=== PATIENT | male | born 1980 | race Caucasian/White ===

== ENCOUNTER 2016-07-10 22:20 | Emergency (ER) | payer OTHER ==
[~2016-07-10] VITALS: Ht 185.4 cm; Wt 88.5 kg
[~2016-07-10 22:20] MED LIST: ALBU2TA INH; AUGM875T27 PO; AVEL1TAB PO; NICO21DI5 TD
[2016-07-10 22:29] VITALS: BP 136/68
[2016-07-10] MEDS ORDERED: inhaler PO (22:33)
[2016-07-10] MEDS ORDERED: ZITHTAB PO (23:27)
[2016-07-10] MEDS ORDERED: FLON1SPR (23:28)
[2016-07-10] MEDS ORDERED: AZITHROMYCIN 250 MG TAB PO ONE (23:30)
== END 2016-07-10 23:42 | disposition home or self-care (01) ==
LOC: M ED 22:30
DX: J01.90 Acute sinusitis, unspecified (principal); J20.9 Acute bronchitis, unspecified

== ENCOUNTER 2016-07-31 21:58 | Emergency (ER) | payer OTHER ==
[~2016-07-31] VITALS: Ht 182.9 cm; Wt 86.2 kg
[~2016-07-31 21:58] MED LIST changes: +FLON1SPR; +ZITHTAB PO; +inhaler PO
[2016-08-01] MEDS ORDERED: NAPROXEN 250 MG TAB PO ONE (00:15)
[2016-08-01] MEDS ORDERED: NAPR500T PO (00:18)
[2016-08-01 00:20] VITALS: BP 140/78
== END 2016-08-01 00:25 | disposition home or self-care (01) ==
LOC: M ED 22:41
DX: M77.9 Enthesopathy, unspecified (principal)

== ENCOUNTER 2016-10-12 21:30 | Emergency (ER) | payer OTHER ==
[~2016-10-12] VITALS: Ht 182.9 cm; Wt 86.4 kg
[~2016-10-12 21:30] MED LIST changes: +NAPR500T PO
[2016-10-12] MEDS ORDERED: ACETAMINOPHEN TAB 650MG DOSE (2X325MG) PO ONE (22:30)
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
[2016-10-13 00:33] VITALS: BP 119/69
== END 2016-10-13 00:35 | disposition home or self-care (01) ==
LOC: EDBD 21:30 → M ED 22:41
DX: S01.01XA Laceration without foreign body of scalp, initial encounter (principal); S60.511A Abrasion of right hand, initial encounter; S60.512A Abrasion of left hand, initial encounter; S80.211A Abrasion, right knee, initial encounter; S80.212A Abrasion, left knee, initial encounter; Y04.8XXA Assault by other bodily force, initial encounter; Y92.410 Unspecified street and highway as the place of occurrence of the external cause; Y93.89 Activity, other specified; Y99.8 Other external cause status; F17.210 Nicotine dependence, cigarettes, uncomplicated

== ENCOUNTER 2016-11-13 20:48 | Emergency (ER) | payer OTHER ==
[~2016-11-13] VITALS: Ht 182.9 cm; Wt 77.3 kg
[~2016-11-13 20:48] MED LIST changes: -AUGM875T27 PO; +AUGM875T28 PO; -AVEL1TAB PO; +AVEL1TAB3 PO
[2016-11-13 20:49] VITALS: BP 115/70
[2016-11-13] MEDS ORDERED: ALBU17IN (20:55)
[2016-11-13] MEDS ORDERED: ARNU1INH (20:55)
== END 2016-11-13 22:12 | disposition left against medical advice (07) ==
LOC: M ED 20:48
DX: M54.5 Low back pain (principal); Z53.21 Procedure and treatment not carried out due to patient leaving prior to being seen by health care provider

== ENCOUNTER → 2017-05-09 | Outpatient (CLI) | payer MEDICAID | LOC: M OUTALCOH 07:47 | DX: F10.20 Alcohol dependence, uncomplicated (principal) ==

== ENCOUNTER 2017-07-16 16:05 | Emergency (ER) | payer OTHER, MEDICAID ==
[2017-07-16] MEDS: FLUORESCEIN OPHTH 1 MG STRIP OS (17:15)
[2017-07-16] MEDS: TETRACAINE 0.5% OPHTH SOLN 4ML OS (17:15)
== END 2017-07-16 17:40 | disposition home or self-care (01) ==
LOC: M ED 16:05
DX: H10.32 Unspecified acute conjunctivitis, left eye (principal); H57.12 Ocular pain, left eye; J44.9 Chronic obstructive pulmonary disease, unspecified; F17.200 Nicotine dependence, unspecified, uncomplicated
CPT/HCPCS: 99283

== ENCOUNTER 2018-02-15 14:08 | Observation (INO) | payer OTHER ==
[2018-02-15 16:03] LABS: KETONE, URINE AUTO RFX TRACE mg/dL (NEGATIVE); LEUKOCYTE ESTERASE UR AUTO RFX NEGATIVE (NEGATIVE); MUCUS, URINE RFX LARGE (NEGATIVE); NITRITE, URINE AUTO RFX NEGATIVE (NEGATIVE); RBC, URINE AUTO RFX 4 /HPF (0-3); SPECIFIC GRAVITY UR AUTO RFX 1.033 (1.002-1.035); SQUAM EPITHELIAL CELL UR AURFX 0 /HPF (0-6); WBC, URINE AUTO RFX 3 /HPF (0-3)
[2018-02-15] MEDS: KETOROLAC 30 MG/ML VIAL (J1885) IV (16:10)
[2018-02-15] MEDS: NS 1,000 ML IV ×2 (16:10→19:11)
[2018-02-15 16:15] LABS: HEMATOCRIT 37.7 % (42.0-52.0); HEMOGLOBIN 13.3 g/dl (13.5-17.5); MEAN CORPUSCULAR HEMOGLOBIN 34.4 pg (27.0-33.0); MEAN CORPUSCULAR HGB CONC 35.3 g/dl (32.0-36.5); MEAN CORPUSCULAR VOLUME 97.4 fl (80.0-96.0); PLATELET COUNT, AUTOMATED 433 10^3/uL (150-450); RED BLOOD COUNT 3.87 10^6/uL (4.30-6.10); RED CELL DISTRIBUTION WIDTH 14.5 % (11.5-14.5); WHITE BLOOD COUNT 21.8 10^3/uL (4.0-10.0)
[2018-02-15 16:21] LABS: ANION GAP 10 MEQ/L (8-16); BLOOD UREA NITROGEN 13 MG/DL (7-18); CALCIUM LEVEL 8.8 MG/DL (8.5-10.1); CARBON DIOXIDE LEVEL 26 MEQ/L (21-32); CHLORIDE LEVEL 104 MEQ/L (98-107); CREATININE FOR GFR 1.12 MG/DL (0.70-1.30); GLOMERULAR FILTRATION RATE > 60.0 (>60); GLUCOSE, FASTING 81 MG/DL (70-100); POTASSIUM SERUM 3.9 MEQ/L (3.5-5.1); SODIUM LEVEL 140 MEQ/L (136-145)
[2018-02-15 16:22] LABS: LACTIC ACID SEPSIS PROTOCOL 1.3 MMOL/L (0.4-2.0)
[2018-02-15 16:30] LABS: ADD MANUAL DIFFER YES; DIFF SLIDE NUMBER 166; POSITIVE DIFF POS FLAG
[2018-02-15 16:31] LABS: INFLUENZA A AMPLIFICATION NEGATIVE (NEGATIVE); INFLUENZA B AMPLIFICATION NEGATIVE (NEGATIVE)
[2018-02-15 16:33] LABS: ATYPICAL LYMPH 3 % (0-5); BASOPHILS 2 % (0-4); LYMPHOCYTES 18 % (16-52); MONOCYTES 5 % (0-8); NEUTROPHILS 72 % (35-75); PLATELET ESTIMATE INCREASED (NORMAL)
[2018-02-15 17:55] LABS: AMPHETAMINES LEVEL URINE NEGATIVE (NEGATIVE); BARBITURATES URINE NEGATIVE (NEGATIVE); BENZODIAZEPINES URINE NEGATIVE (NEGATIVE); CANNABINOIDS URINE POSITIVE (NEGATIVE); COCAINE METABOLITE URINE NEGATIVE (NEGATIVE); METHADONE URINE NEGATIVE (NEGATIVE); OPIATES URINE POSITIVE (NEGATIVE); PHENCYCLIDINE URINE NEGATIVE (NEGATIVE)
[2018-02-15] MEDS ORDERED: ACETAMINOPHEN TAB 650MG DOSE (2X325MG) PO (18:30)
[2018-02-15] MEDS ORDERED: BISACODYL 10 MG SUPP PR (18:30)
[2018-02-15] MEDS ORDERED: ONDANSETRON 4MG/2ML VIAL (J2405) IV (18:30)
[2018-02-15] MEDS: HEPARIN SOD (PORCINE) 5000 UNITS/ML VIAL SC (22:00)
[2018-02-16] MEDS: NS 1,000 ML IV ×3 (01:59→18:35)
[2018-02-16] MEDS: HEPARIN SOD (PORCINE) 5000 UNITS/ML VIAL SC ×3 (06:17→21:16)
[2018-02-16 06:42] LABS: HEMATOCRIT 34.6 % (42.0-52.0); HEMOGLOBIN 12.3 g/dl (13.5-17.5); MEAN CORPUSCULAR HEMOGLOBIN 34.1 pg (27.0-33.0); MEAN CORPUSCULAR HGB CONC 35.5 g/dl (32.0-36.5); MEAN CORPUSCULAR VOLUME 95.8 fl (80.0-96.0); PLATELET COUNT, AUTOMATED 415 10^3/uL (150-450); RED BLOOD COUNT 3.61 10^6/uL (4.30-6.10); RED CELL DISTRIBUTION WIDTH 13.9 % (11.5-14.5); WHITE BLOOD COUNT 14.2 10^3/uL (4.0-10.0)
[2018-02-16 07:15] LABS: ANION GAP 7 MEQ/L (8-16); BLOOD UREA NITROGEN 16 MG/DL (7-18); CALCIUM LEVEL 8.1 MG/DL (8.5-10.1); CARBON DIOXIDE LEVEL 22 MEQ/L (21-32); CHLORIDE LEVEL 111 MEQ/L (98-107); CREATININE FOR GFR 0.97 MG/DL (0.70-1.30); GLOMERULAR FILTRATION RATE > 60.0 (>60); GLUCOSE, FASTING 110 MG/DL (70-100); POTASSIUM SERUM 3.7 MEQ/L (3.5-5.1); SODIUM LEVEL 140 MEQ/L (136-145)
[2018-02-16 08:22] LABS: ALBUMIN 2.9 GM/DL (3.2-5.2); ALBUMIN/GLOBULIN RATIO 0.81 (1.00-1.93); ALKALINE PHOSPHATASE 71 U/L (45-117); ALT/SGPT 12 U/L (12-78); AST/SGOT 16 U/L (7-37); BILIRUBIN,DIRECT 0.4 MG/DL (0.0-0.2); BILIRUBIN,TOTAL 1.4 MG/DL (0.2-1.0); C REACTIVE PROTEIN QUANTITATIV 6.64 MG/DL (0.00-0.30); CPK CREATINE PHOSPHOKINASE 49 U/L (39-308); THYROID STIMULATING HORMONE 0.578 uIU/ML (0.358-3.740); TOTAL PROTEIN 6.5 GM/DL (6.4-8.2)
[2018-02-16 08:33] LABS: ERYTHROCYTE SEDIMENTATION RATE 35 mm/hr (0-15)
[2018-02-16] MEDS: INFLUENZA QUADRIVALENT PF VACCINE 0.5ML SYRINGE (90686) IM (09:00)
[2018-02-16] MEDS: NICOTINE 21MG/24HR 1 EA TRANSDERMAL TD (09:00)
[2018-02-16 13:33] LABS: ESTIMATED AVERAGE GLUCOSE 97 MG/DL (60-110)
[2018-02-17] MEDS: NS 1,000 ML IV (01:42)
[2018-02-17] MEDS: HEPARIN SOD (PORCINE) 5000 UNITS/ML VIAL SC (05:04)
[2018-02-17 06:19] LABS: HEMATOCRIT 33.4 % (42.0-52.0); HEMOGLOBIN 11.9 g/dl (13.5-17.5); MEAN CORPUSCULAR HEMOGLOBIN 34.4 pg (27.0-33.0); MEAN CORPUSCULAR HGB CONC 35.6 g/dl (32.0-36.5); MEAN CORPUSCULAR VOLUME 96.5 fl (80.0-96.0); PLATELET COUNT, AUTOMATED 405 10^3/uL (150-450); RED BLOOD COUNT 3.46 10^6/uL (4.30-6.10); WHITE BLOOD COUNT 10.7 10^3/uL (4.0-10.0)
[2018-02-17 06:35] LABS: ANION GAP 5 MEQ/L (8-16); BLOOD UREA NITROGEN 12 MG/DL (7-18); CALCIUM LEVEL 8.2 MG/DL (8.5-10.1); CARBON DIOXIDE LEVEL 24 MEQ/L (21-32); CHLORIDE LEVEL 113 MEQ/L (98-107); CREATININE FOR GFR 0.92 MG/DL (0.70-1.30); GLOMERULAR FILTRATION RATE > 60.0 (>60); GLUCOSE, FASTING 94 MG/DL (70-100); POTASSIUM SERUM 4.2 MEQ/L (3.5-5.1); SODIUM LEVEL 142 MEQ/L (136-145)
== END 2018-02-17 10:25 | disposition home or self-care (01) ==
LOC: M ED 14:08 → M ED INP 18:16 → M MS5PR 20:25
DX: F11.10 Opioid abuse, uncomplicated (principal); F12.10 Cannabis abuse, uncomplicated; M79.18 Myalgia, other site; D72.829 Elevated white blood cell count, unspecified; F17.210 Nicotine dependence, cigarettes, uncomplicated
CPT/HCPCS: J1885

== ENCOUNTER 2018-03-29 19:36 | Emergency (ER) | payer OTHER ==
[2018-03-29 21:18] LABS: BASO # 0.1 10^3/uL (0.0-0.2); BASO % 0.6 % (0.0-1.0); EOS # 0.2 10^3/uL (0.0-0.50); EOS % 1.6 % (0.0-3.0); HEMATOCRIT 38.5 % (42.0-52.0); HEMOGLOBIN 13.7 g/dl (13.5-17.5); IMMATURE GRANULOCYTE % 0.2 % (0-3.0); LYMPH # 2.8 10^3/uL (1.5-4.5); LYMPH % 21.2 % (24.0-44.0); MEAN CORPUSCULAR HGB CONC 35.6 g/dl (32.0-36.5); MEAN CORPUSCULAR VOLUME 95.5 fl (80.0-96.0); MONO # 1.3 10^3/uL (0.0-0.8); MONO % 9.5 % (0.0-5.0); NEUTROPHILS # 8.8 10^3/uL (1.8-7.7); NEUTROPHILS % 66.9 % (36.0-66.0); PLATELET COUNT, AUTOMATED 499 10^3/uL (150-450); RED BLOOD COUNT 4.03 10^6/uL (4.30-6.10); RED CELL DISTRIBUTION WIDTH 13.4 % (11.5-14.5); WHITE BLOOD COUNT 13.1 10^3/uL (4.0-10.0)
[2018-03-29 21:36] LABS: ETHYL ALCOHOL (ETHANOL) < 0.003 % (0.000-0.010)
[2018-03-29 21:39] LABS: AMPHETAMINES LEVEL URINE POSITIVE (NEGATIVE); BARBITURATES URINE NEGATIVE (NEGATIVE); BENZODIAZEPINES URINE NEGATIVE (NEGATIVE); CANNABINOIDS URINE POSITIVE (NEGATIVE); COCAINE METABOLITE URINE POSITIVE (NEGATIVE); METHADONE URINE NEGATIVE (NEGATIVE); OPIATES URINE POSITIVE (NEGATIVE); PHENCYCLIDINE URINE NEGATIVE (NEGATIVE)
== END 2018-03-29 22:23 | disposition home or self-care (01) ==
LOC: M ED 19:36
DX: S06.0X0A Concussion without loss of consciousness, initial encounter (principal); S00.83XA Contusion of other part of head, initial encounter; S13.4XXA Sprain of ligaments of cervical spine, initial encounter; F19.10 Other psychoactive substance abuse, uncomplicated; Y04.8XXA Assault by other bodily force, initial encounter; Y92.098 Other place in other non-institutional residence as the place of occurrence of the external cause; J45.909 Unspecified asthma, uncomplicated; F43.20 Adjustment disorder, unspecified; F90.9 Attention-deficit hyperactivity disorder, unspecified type; F60.9 Personality disorder, unspecified; F17.200 Nicotine dependence, unspecified, uncomplicated
CPT/HCPCS: 70450

== ENCOUNTER 2018-04-27 22:24 | Emergency (ER) | payer OTHER ==
[~2018-04-27] VITALS: Ht 185.4 cm; Wt 79.5 kg
[~2018-04-27 22:24] MED LIST changes: +ACE65ERTAB PO; +ALBU17IN; +ARNU1INH; +GENT3OPD OS; +KETO5OPD OS; +NAPR-50 PO; -NAPR500T PO; -NICO21DI5 TD; +NICO21DI6 TD
[2018-04-27 23:11] LABS: HEMOGLOBIN 13.8 g/dl (13.5-17.5); MEAN CORPUSCULAR HEMOGLOBIN 32.9 pg (27.0-33.0); MEAN CORPUSCULAR HGB CONC 35.4 g/dl (32.0-36.5); MEAN CORPUSCULAR VOLUME 92.9 fl (80.0-96.0); PLATELET COUNT, AUTOMATED 496 10^3/uL (150-450); WHITE BLOOD COUNT 12.5 10^3/uL (4.0-10.0)
[2018-04-27 23:36] LABS: ACETAMINOPHEN LEVEL < 2.0 UG/ML (10.0-30.0); ALBUMIN 3.8 GM/DL (3.2-5.2); ALT/SGPT 459 U/L (12-78); BILIRUBIN,DIRECT 0.3 MG/DL (0.0-0.2); BILIRUBIN,TOTAL 0.8 MG/DL (0.2-1.0); BLOOD UREA NITROGEN 17 MG/DL (7-18); CALCIUM LEVEL 8.8 MG/DL (8.5-10.1); CARBON DIOXIDE LEVEL 22 MEQ/L (21-32); CHLORIDE LEVEL 105 MEQ/L (98-107); CREATININE FOR GFR 1.17 MG/DL (0.70-1.30); ETHYL ALCOHOL (ETHANOL) < 0.003 % (0.000-0.010); GLOMERULAR FILTRATION RATE > 60.0 (>60); GLUCOSE, FASTING 105 MG/DL (70-100); POTASSIUM SERUM 3.8 MEQ/L (3.5-5.1); SALICYLATE LEVEL 1.9 MG/DL (5.0-30.0); SODIUM LEVEL 138 MEQ/L (136-145); TOTAL PROTEIN 7.6 GM/DL (6.4-8.2)
[2018-04-27 23:37] LABS: AMPHETAMINES LEVEL URINE POSITIVE (NEGATIVE); BARBITURATES URINE NEGATIVE (NEGATIVE); BENZODIAZEPINES URINE NEGATIVE (NEGATIVE); CANNABINOIDS URINE POSITIVE (NEGATIVE); COCAINE METABOLITE URINE NEGATIVE (NEGATIVE); METHADONE URINE NEGATIVE (NEGATIVE); OPIATES URINE POSITIVE (NEGATIVE); PHENCYCLIDINE URINE NEGATIVE (NEGATIVE)
[2018-04-28 00:02] VITALS: BP 125/61
--- NOTE | 2018-04-28 06:56 | REP ---
Clinical: Pain. Technique: AP, lateral, bilateral oblique views of the left hand. Comparison: 05/27/2012. Findings: Old healed fracture of the fifth proximal phalanx identified. No obvious acute fracture dislocation. No subcutaneous emphysema. No foreign body. Impression: Old right fifth proximal phalanx fracture. No acute fracture or dislocation appreciated. The Electronically Signed by Cornell Porter MD 04/28/2018 06:48 A
--- NOTE | 2018-04-28 06:58 | REP ---
Clinical: Pain. Technique: AP, lateral, bilateral oblique views of the left wrist. Comparison: 05/27/2012. Findings: No obvious acute fracture appreciated. The carpal bones appear intact. Surrounding soft tissues are grossly unremarkable. No subcutaneous emphysema or radiodense foreign body. Impression: No acute fracture or dislocation appreciated. Electronically Signed by Cornell Porter MD 04/28/2018 06:50 A
[2018-04-28 11:52] LABS: HEPATITIS B SURFACE ANTIGEN NEGATIVE (NEGATIVE)
[2018-04-28 12:19] LABS: HEPATITIS B CORE ANTIBODY IGM NEGATIVE (NEGATIVE)
[2018-04-28 12:21] LABS: HEPATITIS A ANTIBODY IGM NEGATIVE (NEGATIVE)
[2018-04-28 12:30] LABS: HEPATITIS C VIRUS ABY INDEX 3.5 INDEX (<0.8)
== END 2018-04-27 23:59 | disposition home or self-care (01) ==
LOC: M ED 22:24
DX: F43.0 Acute stress reaction (principal); S63.502A Unspecified sprain of left wrist, initial encounter; W22.09XA Striking against other stationary object, initial encounter; Y92.89 Other specified places as the place of occurrence of the external cause; R94.5 Abnormal results of liver function studies; F63.81 Intermittent explosive disorder; F32.9 Major depressive disorder, single episode, unspecified; F19.10 Other psychoactive substance abuse, uncomplicated; G89.29 Other chronic pain; M51.9 Unspecified thoracic, thoracolumbar and lumbosacral intervertebral disc disorder; F17.200 Nicotine dependence, unspecified, uncomplicated
CPT/HCPCS: 36415; 73110; 73130; 80048; 80076; 80307; 84443; 85027; 86705; 86709; 86803; 87340; 87521; 99284; G0480

== ENCOUNTER 2018-05-09 12:46 | Inpatient (IN) | payer OTHER ==
[~2018-05-09] VITALS: Ht 185.4 cm; Wt 83.5 kg
[2018-05-09] MEDS ORDERED: ACETAMINOPHEN 325 MG TAB PO ONE (13:00)
[2018-05-09] MEDS ORDERED: IBUPROFEN 800 MG TAB PO ONE (13:00)
[2018-05-09] MEDS ORDERED: NS 1,000 ML IV ONE ×2 (13:00→14:15)
[2018-05-09] MEDS ORDERED: ONDANSETRON 4MG/2ML VIAL (J2405) IV ONE (13:00)
[2018-05-09 13:41] LABS: HEMATOCRIT 38.1 % (42.0-52.0); HEMOGLOBIN 13.9 g/dl (13.5-17.5); MEAN CORPUSCULAR HEMOGLOBIN 33.3 pg (27.0-33.0); MEAN CORPUSCULAR HGB CONC 36.5 g/dl (32.0-36.5); MEAN CORPUSCULAR VOLUME 91.1 fl (80.0-96.0); PLATELET COUNT, AUTOMATED 343 10^3/uL (150-450); RED BLOOD COUNT 4.18 10^6/uL (4.30-6.10)
[2018-05-09 14:00] LABS: ALBUMIN 3.1 GM/DL (3.2-5.2); ALT/SGPT 851 U/L (12-78); AMYLASE 30 U/L (25-115); BILIRUBIN,DIRECT 1.7 MG/DL (0.0-0.2); BILIRUBIN,TOTAL 2.4 MG/DL (0.2-1.0); BLOOD UREA NITROGEN 19 MG/DL (7-18); CALCIUM LEVEL 8.5 MG/DL (8.5-10.1); CARBON DIOXIDE LEVEL 22 MEQ/L (21-32); CHLORIDE LEVEL 103 MEQ/L (98-107); CREATININE FOR GFR 1.26 MG/DL (0.70-1.30); GLOMERULAR FILTRATION RATE > 60.0 (>60); GLUCOSE, FASTING 90 MG/DL (70-100); LIPASE 72 U/L (73-393); SODIUM LEVEL 137 MEQ/L (136-145); TOTAL PROTEIN 6.6 GM/DL (6.4-8.2)
[2018-05-09 14:12] LABS: INFLUENZA A AMPLIFICATION NEGATIVE (NEGATIVE); INFLUENZA B AMPLIFICATION NEGATIVE (NEGATIVE)
[2018-05-09 14:26] LABS: AMPHETAMINES LEVEL URINE POSITIVE (NEGATIVE); BARBITURATES URINE NEGATIVE (NEGATIVE); BENZODIAZEPINES URINE NEGATIVE (NEGATIVE); CANNABINOIDS URINE POSITIVE (NEGATIVE); COCAINE METABOLITE URINE NEGATIVE (NEGATIVE); METHADONE URINE NEGATIVE (NEGATIVE); OPIATES URINE POSITIVE (NEGATIVE); PHENCYCLIDINE URINE NEGATIVE (NEGATIVE)
[2018-05-09 14:28] LABS: ATYPICAL LYMPH 2 % (0-5); LYMPHOCYTES 2 % (16-52); MONOCYTES 2 % (0-8); NEUTROPHILS 74 % (35-75)
[2018-05-09 14:29] LABS: PLATELET ESTIMATE NORMAL (NORMAL); TOXIC VACUOLATION 2+
[2018-05-09] MEDS ORDERED: PIPERACILLIN/TAZOBACTAM SOD 3.375 GM in D5W MINI-BAG PLUS 50 ML IV ONE (15:00)
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
[2018-05-09] MEDS ORDERED: NS 2,400 ML in APPROPRIATE DILUENT 1 EA IV ONE (16:00)
--- NOTE | 2018-05-09 16:58 | REP ---
AP PORTABLE CHEST: 05/09/2018. Clinical history: Fever and back pain. Comparison: 02/15/2018, 02/24/2015 chest x-ray. Findings: Lungs are well inflated. There is diffuse coarsening of interstitial markings similar to the previous study. I do not see blunting of CP angles to suggest definite effusion. There is no lateral pleural thickening, apical scarring or pneumothorax. Pulmonary arteries are mildly prominent centrally. Some very mild pulmonary venous hypertension. No ni edema or dense consolidation. The aorta is minimally tortuous in its arch but unchanged. Airway intact. Bones without acute finding. No free air under the diaphragm. Impression: 1. Some chronic interstitial changes, stable with some pulmonary artery hypertension and superimposed new pulmonary venous hypertension. No gross effusion or dense consolidation. 2. Aorta normal for age. No gross cardiomegaly or ni edema. Electronically Signed by Jefe Rodgers MD 05/09/2018 05:07 P
[2018-05-09] MEDS ORDERED: MORPHINE 4 MG/ML 1ML VIAL/SYRINGE (J2270) IV PRN (17:15)
[2018-05-09] MEDS ORDERED: BISACODYL 5 MG TAB PO PRN (17:15)
[2018-05-09] MEDS ORDERED: ONDANSETRON 4MG/2ML VIAL (J2405) IV PRN (17:15)
[2018-05-09 18:31] LABS: INR 1.81; PROTHROMBIN TIME 21.3 SECONDS (12.1-14.4)
[2018-05-09 18:54] LABS: ACETAMINOPHEN LEVEL 18.5 UG/ML (10.0-30.0); C REACTIVE PROTEIN QUANTITATIV 2.16 MG/DL (0.00-0.30); ETHYL ALCOHOL (ETHANOL) < 0.003 % (0.000-0.010)
[2018-05-09 19:41] VITALS: BP 106/58
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
[2018-05-09] MEDS: NS 1,000 ML IV SCH (20:26)
[2018-05-09] MEDS: PIPERACILLIN/TAZOBACTAM SOD 3.375 GM in D5W MINI-BAG PLUS 50 ML IV SCH (20:26)
[2018-05-09] MEDS: oxyCODONE 5MG TAB PO PRN (21:16)
[2018-05-09 22:00] VITALS: BP 88/51
[2018-05-09] MEDS ORDERED: NS 500 ML IV ONE (22:15)
[2018-05-09 22:27] LABS: HEMATOCRIT 32.7 % (42.0-52.0); MEAN CORPUSCULAR HEMOGLOBIN 33.8 pg (27.0-33.0); MEAN CORPUSCULAR HGB CONC 36.1 g/dl (32.0-36.5); MEAN CORPUSCULAR VOLUME 93.7 fl (80.0-96.0); PLATELET COUNT, AUTOMATED 271 10^3/uL (150-450); RED BLOOD COUNT 3.49 10^6/uL (4.30-6.10)
[2018-05-09 22:41] VITALS: BP 97/56
[2018-05-09 22:44] LABS: HEMOGLOBIN 11.8 g/dl (13.5-17.5)
[2018-05-09 22:45] LABS: WHITE BLOOD COUNT 31.6 10^3/uL (4.0-10.0)
[2018-05-09 22:51] LABS: ABG BASE EXCESS -6.5 (-2.0-2.0); ABG HCO3 16.5 MEQ/L (22.0-26.0); ABG O2 SATURATION 96.1 % (95.0-99.0); ABG PARTIAL PRESSURE CO2 26.1 mmHg (35.0-45.0); ABG PARTIAL PRESSURE O2 82.7 mmHg (75.0-100.0); ABG STANDARD HCO3 19.2 MEQ/L (22.0-26.0); ABG TOTAL CO2 17.3 MEQ/L (22.0-29.0); ABG pH (ARTERIAL) 7.419 UNITS (7.350-7.450)
[2018-05-09 22:56] LABS: ALBUMIN 2.3 GM/DL (3.2-5.2); ALT/SGPT 605 U/L (12-78); BILIRUBIN,TOTAL 2.5 MG/DL (0.2-1.0); BLOOD UREA NITROGEN 16 MG/DL (7-18); CALCIUM LEVEL 7.1 MG/DL (8.5-10.1); CARBON DIOXIDE LEVEL 20 MEQ/L (21-32); CHLORIDE LEVEL 110 MEQ/L (98-107); CREATININE FOR GFR 1.27 MG/DL (0.70-1.30); GLOMERULAR FILTRATION RATE > 60.0 (>60); GLUCOSE, FASTING 110 MG/DL (70-100); SODIUM LEVEL 142 MEQ/L (136-145)
--- NOTE | 2018-05-09 23:23 | PHACANCOPD ---
PHARMACY VANCOMYCIN DOSING Pt Demographics Demographics Patient Age:37 , Weight:83.500 , Gender: male Adjusted Body Weight Events Past 24 Hours Events Past 24 Hours: NO: Dialysis, Diuretic Therapy, Change in CrCl, Fever, Elevation in WBC Vancomycin Vancomycin indication: INTRAABDOMINAL CAUSE Vancomycin Target Ranges: 15-20 mcg/ml Vancomycin Load Y/N: Yes Load Dose Date Time Vancomycin Load Dose: 2GM Date: 05/10/18 Time: MIDNIGHT Vancomycin Dose Date: 05/10/18. Current Vancomycin Dose: [1GM IV Q8H start @08:00] Intermittent Dosing?: No Labs Labs Laboratory Tests 05/09/18 13:14 Red Blood Count 4.18 L, Mean Corpuscular Volume 91.1, Mean Corpuscular Hemoglobin 33.3 H, Mean Corpuscular Hemoglobin Concent 36.5, Red Cell Distribution Width 14.3 05/09/18 22:21 Red Blood Count 3.49 L, Mean Corpuscular Volume 93.7, Mean Corpuscular Hemoglobin 33.8 H, Mean Corpuscular Hemoglobin Concent 36.1, Red Cell Distribution Width 14.6 H, Calcium Level 7.1 #L, Aspartate Amino Transf (AST/ SGOT) 475 H, Alanine Aminotransferase (ALT/SGPT) 605 H, Alkaline Phosphatase 142 H, Total Bilirubin 2.5 H, Total Protein 5.0 #L, Albumin 2.3 #L Micro Microbiology 05/09/18 Blood Culture, Received Pending 05/09/18 Blood Culture, Received Pending 05/09/18 Urine Culture, Received Pending Creatinine Clearance Date:05/09/18. Creatinine Clearance: >80ml/min]. Assessment and Plan Maintaining Current Dose?: Yes Reason for dose change: No Dose Change Pharmacist Note Pharmacist Note Date: 05/10/18. PharmD note: VANCO 2GM IV x1 DOSE @ MIDNIGHT FOLLOWED BY 1GM IV Q8H STARTING AT 08:00 GOAL 15-20 mcg/ml VANCO TROUGH WILL BE ORDERED WHEN AT [facility] May 09, 2018 23:23
[2018-05-10 01:00] VITALS: BP 95/54
[2018-05-10] MEDS ORDERED: VANCOMYCIN HCL 1,000 MG, VIAL MATE ADAPTER 1 EACH in D5W 250 ML IV ONE ×4 (01:00)
[2018-05-10] MEDS: PIPERACILLIN/TAZOBACTAM SOD 3.375 GM in D5W MINI-BAG PLUS 50 ML IV SCH ×4 (02:51→20:20)
[2018-05-10] MEDS: NS 1,000 ML IV SCH ×3 (05:29→20:21)
[2018-05-10 05:52] VITALS: BP 90/53
[2018-05-10 06:45] LABS: HEMATOCRIT 34.1 % (42.0-52.0); HEMOGLOBIN 12.1 g/dl (13.5-17.5); MEAN CORPUSCULAR HEMOGLOBIN 33.3 pg (27.0-33.0); MEAN CORPUSCULAR HGB CONC 35.5 g/dl (32.0-36.5); MEAN CORPUSCULAR VOLUME 93.9 fl (80.0-96.0); PLATELET COUNT, AUTOMATED 292 10^3/uL (150-450); RED BLOOD COUNT 3.63 10^6/uL (4.30-6.10)
[2018-05-10 06:58] LABS: WHITE BLOOD COUNT 42.6 10^3/uL (4.0-10.0)
[2018-05-10 07:07] LABS: ALBUMIN 2.5 GM/DL (3.2-5.2); ALT/SGPT 625 U/L (12-78); BILIRUBIN,TOTAL 2.5 MG/DL (0.2-1.0); BLOOD UREA NITROGEN 16 MG/DL (7-18); CALCIUM LEVEL 7.8 MG/DL (8.5-10.1); CARBON DIOXIDE LEVEL 23 MEQ/L (21-32); CHLORIDE LEVEL 107 MEQ/L (98-107); CREATININE FOR GFR 1.06 MG/DL (0.70-1.30); GLOMERULAR FILTRATION RATE > 60.0 (>60); GLUCOSE, FASTING 80 MG/DL (70-100); POTASSIUM SERUM 4.7 MEQ/L (3.5-5.1); SODIUM LEVEL 139 MEQ/L (136-145); TOTAL PROTEIN 5.3 GM/DL (6.4-8.2)
[2018-05-10] MEDS: VANCOMYCIN HCL 1,000 MG, VIAL MATE ADAPTER 1 EACH in D5W 250 ML IV SCH ×3 (07:26→23:05)
[2018-05-10] MEDS ORDERED: INFLUENZA QUADRIVALENT PF VACCINE 0.5ML SYRINGE (90686) IM ONE (09:00)
--- NOTE | 2018-05-10 09:08 | PHACANCOPD ---
PHARMACY VANCOMYCIN DOSING Pt Demographics Demographics Patient Age:37 , Weight:83.500 , Gender: male Adjusted Body Weight Vancomycin Vancomycin indication: INTRAABDOMINAL CAUSE Vancomycin Target Ranges: 15-20 mcg/ml Vancomycin Load Y/N: Yes Load Dose Date Time Vancomycin Load Dose: 2GM Date: 05/10/18 Time: MIDNIGHT Vancomycin Dose Date: 05/10/18. Current Vancomycin Dose: [1GM IV Q8H start @08:00] Intermittent Dosing?: No Labs Micro Microbiology 05/09/18 Blood Culture, Received Pending 05/09/18 Blood Culture, Received Pending 05/09/18 Urine Culture - Final, Complete Creatinine Clearance Date:05/09/18. Creatinine Clearance: >80ml/min]. Assessment and Plan Maintaining Current Dose?: Yes Reason for dose change: No Dose Change Pharmacist Note Pharmacist Note 05/10/18: Day #1 vancomycin therapy for the treatment of potential cholangitis. Scr has improved from 1.27 yesterday to 1.06 today. A vancomycin trough has been scheduled to be drawn tomorrow, 05/11/18, prior to the 5th dose at 0700. We will continue to monitor and make dose adjustments if needed. Date: 05/10/18. PharmD note: VANCO 2GM IV x1 DOSE @ MIDNIGHT FOLLOWED BY 1GM IV Q8H STARTING AT 08:00 GOAL 15-20 mcg/ml VANCO TROUGH WILL BE ORDERED WHEN AT [facility] May 10, 2018 09:08
[2018-05-10 14:00] VITALS: BP 106/58
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
[2018-05-10 20:00] VITALS: BP 113/58
[2018-05-10] MEDS: oxyCODONE 5MG TAB PO PRN (20:21)
[2018-05-11] MEDS: PIPERACILLIN/TAZOBACTAM SOD 3.375 GM in D5W MINI-BAG PLUS 50 ML IV SCH ×4 (02:38→20:33)
[2018-05-11] MEDS: oxyCODONE 5MG TAB PO PRN ×2 (02:47→20:33)
[2018-05-11 06:00] VITALS: BP 100/51
[2018-05-11 06:24] LABS: HEMATOCRIT 33.3 % (42.0-52.0); HEMOGLOBIN 12.1 g/dl (13.5-17.5); MEAN CORPUSCULAR HGB CONC 36.3 g/dl (32.0-36.5); MEAN CORPUSCULAR VOLUME 90.7 fl (80.0-96.0); PLATELET COUNT, AUTOMATED 261 10^3/uL (150-450); RED BLOOD COUNT 3.67 10^6/uL (4.30-6.10)
[2018-05-11 06:42] LABS: WHITE BLOOD COUNT 30.1 10^3/uL (4.0-10.0)
[2018-05-11 06:47] LABS: ALBUMIN 2.1 GM/DL (3.2-5.2); ALT/SGPT 451 U/L (12-78); BILIRUBIN,TOTAL 1.3 MG/DL (0.2-1.0); BLOOD UREA NITROGEN 16 MG/DL (7-18); CALCIUM LEVEL 7.8 MG/DL (8.5-10.1); CARBON DIOXIDE LEVEL 26 MEQ/L (21-32); CHLORIDE LEVEL 108 MEQ/L (98-107); CREATININE FOR GFR 0.96 MG/DL (0.70-1.30); GLOMERULAR FILTRATION RATE > 60.0 (>60); GLUCOSE, FASTING 86 MG/DL (70-100); POTASSIUM SERUM 4.4 MEQ/L (3.5-5.1); SODIUM LEVEL 138 MEQ/L (136-145); TOTAL PROTEIN 5.2 GM/DL (6.4-8.2)
[2018-05-11] MEDS: VANCOMYCIN HCL 1,000 MG, VIAL MATE ADAPTER 1 EACH in D5W 250 ML IV SCH ×3 (07:56→23:30)
--- NOTE | 2018-05-11 08:23 | REP ---
Right upper quadrant sonography: History: Elevated liver function studies. Hepatitis C virus. Right upper quadrant pain. Findings: Scanning through the right upper quadrant of the abdomen demonstrates a thickened gallbladder wall. No calculus is seen. No tenderness to scanning is observed. No pericholecystic fluid is seen. Common bile duct is normal measuring 0.5 cm in greatest diameter. Limited views of the pancreas show no abnormality. No focal liver lesion is seen. No biliary ductal dilation is observed. There is a trace of right upper quadrant ascites. A small right pleural effusion is noted. Impression: Diffusely thickened gallbladder wall without evidence of stone, tenderness or pericholecystic fluid. Trace of ascites and small right pleural effusion. Otherwise negative. Electronically Signed by Patrick Breaux MD 05/11/2018 09:08 A
[2018-05-11] MEDS: NS 1,000 ML IV SCH (09:03)
[2018-05-11 13:52] VITALS: BP 120/71
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
[2018-05-11 22:00] VITALS: BP 114/56
[2018-05-12] MEDS: PIPERACILLIN/TAZOBACTAM SOD 3.375 GM in D5W MINI-BAG PLUS 50 ML IV SCH ×2 (02:30→09:34)
[2018-05-12 05:37] VITALS: BP 111/58
[2018-05-12 06:25] LABS: HEMATOCRIT 34.8 % (42.0-52.0); HEMOGLOBIN 12.7 g/dl (13.5-17.5); MEAN CORPUSCULAR HGB CONC 36.5 g/dl (32.0-36.5); MEAN CORPUSCULAR VOLUME 90.4 fl (80.0-96.0); PLATELET COUNT, AUTOMATED 301 10^3/uL (150-450); RED BLOOD COUNT 3.85 10^6/uL (4.30-6.10); WHITE BLOOD COUNT 13.6 10^3/uL (4.0-10.0)
[2018-05-12 06:46] LABS: ALBUMIN 2.4 GM/DL (3.2-5.2); ALT/SGPT 568 U/L (12-78); BILIRUBIN,TOTAL 1.2 MG/DL (0.2-1.0); BLOOD UREA NITROGEN 13 MG/DL (7-18); CALCIUM LEVEL 8.4 MG/DL (8.5-10.1); CARBON DIOXIDE LEVEL 27 MEQ/L (21-32); CHLORIDE LEVEL 106 MEQ/L (98-107); CREATININE FOR GFR 0.94 MG/DL (0.70-1.30); GLOMERULAR FILTRATION RATE > 60.0 (>60); GLUCOSE, FASTING 84 MG/DL (70-100); POTASSIUM SERUM 4.2 MEQ/L (3.5-5.1); SODIUM LEVEL 138 MEQ/L (136-145); TOTAL PROTEIN 5.8 GM/DL (6.4-8.2)
[2018-05-12] MEDS: VANCOMYCIN HCL 1,000 MG, VIAL MATE ADAPTER 1 EACH in D5W 250 ML IV SCH (08:12)
[2018-05-12] MEDS ORDERED: LEVA1TAB2 PO (10:34)
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
== END 2018-05-12 12:40 | disposition home or self-care (01) ==
LOC: M ED 12:46 → M ED INP 17:03 → M MS4PR 20:13
PROVIDERS: ADMIT Internal Medicine; ATTEND Internal Medicine
DX: K83.09 Other cholangitis (principal); R45.851 Suicidal ideations; B17.10 Acute hepatitis C without hepatic coma; F11.10 Opioid abuse, uncomplicated; F07.9 Unspecified personality and behavioral disorder due to known physiological condition; F12.10 Cannabis abuse, uncomplicated; F15.10 Other stimulant abuse, uncomplicated; Z90.81 Acquired absence of spleen; Z87.820 Personal history of traumatic brain injury

== ENCOUNTER → 2018-05-21 | Outpatient (REF) | payer OTHER ==
[~2018-05-21] MED LIST changes: +LEVA1TAB2 PO
[2018-05-21 20:16] LABS: BASO # 0.1 10^3/uL (0.0-0.2); BASO % 0.9 % (0.0-1.0); EOS # 0.2 10^3/uL (0.0-0.50); EOS % 1.5 % (0.0-3.0); HEMOGLOBIN 14.1 g/dl (13.5-17.5); LYMPH # 3.6 10^3/uL (1.5-4.5); LYMPH % 29.1 % (24.0-44.0); MEAN CORPUSCULAR HEMOGLOBIN 33.3 pg (27.0-33.0); MEAN CORPUSCULAR HGB CONC 35.3 g/dl (32.0-36.5); MEAN CORPUSCULAR VOLUME 94.6 fl (80.0-96.0); MONO # 1.1 10^3/uL (0.0-0.8); NEUTROPHILS # 7.3 10^3/uL (1.8-7.7); NEUTROPHILS % 59.1 % (36.0-66.0); PLATELET COUNT, AUTOMATED 700 10^3/uL (150-450); RED BLOOD COUNT 4.23 10^6/uL (4.30-6.10); WHITE BLOOD COUNT 12.4 10^3/uL (4.0-10.0)
[2018-05-21 20:22] LABS: ALBUMIN 3.6 GM/DL (3.2-5.2); ALT/SGPT 284 U/L (12-78); BLOOD UREA NITROGEN 9 MG/DL (7-18); CARBON DIOXIDE LEVEL 26 MEQ/L (21-32); CHLORIDE LEVEL 104 MEQ/L (98-107); CREATININE FOR GFR 0.83 MG/DL (0.70-1.30); GLOMERULAR FILTRATION RATE > 60.0 (>60); GLUCOSE, FASTING 80 MG/DL (70-100); POTASSIUM SERUM 4.3 MEQ/L (3.5-5.1); SODIUM LEVEL 137 MEQ/L (136-145); TOTAL PROTEIN 7.6 GM/DL (6.4-8.2)
[2018-05-28 00:11] LABS: HEPATITIS C QUANTITATION 4676510 IU/mL (.); HEPATITIS C VIRUS GENOTYPE 1b (.)
== END ==
LOC: M LAB REF 18:53
PROVIDERS: ATTEND Family Medicine Addiction Medicine
DX: B17.10 Acute hepatitis C without hepatic coma (principal)

== ENCOUNTER 2018-06-08 13:48 | Emergency (ER) | payer OTHER ==
[~2018-06-08] VITALS: Ht 185.4 cm; Wt 86.4 kg
[2018-06-08 14:37] LABS: HEMATOCRIT 42.4 % (42.0-52.0); HEMOGLOBIN 14.6 g/dl (13.5-17.5); MEAN CORPUSCULAR HEMOGLOBIN 32.2 pg (27.0-33.0); MEAN CORPUSCULAR HGB CONC 34.4 g/dl (32.0-36.5); MEAN CORPUSCULAR VOLUME 93.6 fl (80.0-96.0); PLATELET COUNT, AUTOMATED 469 10^3/uL (150-450); RED BLOOD COUNT 4.53 10^6/uL (4.30-6.10); WHITE BLOOD COUNT 15.2 10^3/uL (4.0-10.0)
[2018-06-08 15:25] LABS: ACETAMINOPHEN LEVEL < 2.0 UG/ML (10.0-30.0); ALBUMIN 3.4 GM/DL (3.2-5.2); ALT/SGPT 198 U/L (12-78); BILIRUBIN,DIRECT 0.3 MG/DL (0.0-0.2); BILIRUBIN,TOTAL 0.8 MG/DL (0.2-1.0); BLOOD UREA NITROGEN 14 MG/DL (7-18); CALCIUM LEVEL 8.6 MG/DL (8.5-10.1); CARBON DIOXIDE LEVEL 23 MEQ/L (21-32); CHLORIDE LEVEL 106 MEQ/L (98-107); CREATININE FOR GFR 1.01 MG/DL (0.70-1.30); ETHYL ALCOHOL (ETHANOL) < 0.003 % (0.000-0.010); GLOMERULAR FILTRATION RATE > 60.0 (>60); GLUCOSE, FASTING 87 MG/DL (70-100); POTASSIUM SERUM 4.2 MEQ/L (3.5-5.1); SALICYLATE LEVEL < 1.7 MG/DL (5.0-30.0); SODIUM LEVEL 136 MEQ/L (136-145)
[2018-06-08 16:19] LABS: AMPHETAMINES LEVEL URINE NEGATIVE (NEGATIVE); BARBITURATES URINE NEGATIVE (NEGATIVE); BENZODIAZEPINES URINE NEGATIVE (NEGATIVE); CANNABINOIDS URINE POSITIVE (NEGATIVE); COCAINE METABOLITE URINE NEGATIVE (NEGATIVE); METHADONE URINE NEGATIVE (NEGATIVE); OPIATES URINE NEGATIVE (NEGATIVE); PHENCYCLIDINE URINE NEGATIVE (NEGATIVE)
[2018-06-08 16:24] LABS: BASO # 0.1 10^3/uL (0.0-0.2); BASO % 0.8 % (0.0-1.0); EOS # 0.4 10^3/uL (0.0-0.50); EOS % 2.6 % (0.0-3.0); LYMPH % 19.9 % (24.0-44.0); MONO # 1.8 10^3/uL (0.0-0.8); MONO % 11.9 % (0.0-5.0); NEUTROPHILS # 9.6 10^3/uL (1.8-7.7); NEUTROPHILS % 64.5 % (36.0-66.0)
[2018-06-08] MEDS ORDERED: NS 1,000 ML IV ONE (16:30)
[2018-06-08 16:50] LABS: INR 1.05; PROTHROMBIN TIME 13.8 SECONDS (12.1-14.4)
[2018-06-08 16:51] LABS: PARTIAL THROMBOPLASTIN TIME 31.7 SECONDS (25.4-37.6)
[2018-06-08 17:34] LABS: LIPASE 115 U/L (73-393)
--- NOTE | 2018-06-08 18:22 | REPVR ---
EXAM: US Abdomen Limited, Right Upper Quadrant EXAM DATE/TIME: 06/08/2018 6:09 PM CLINICAL HISTORY: 37 years old, male; Abnormal findings; Abnormal lab test; Elevated liver enzymes; Additional info: Elev lfts, recent cholangitis TECHNIQUE: Real-time ultrasound of the abdomen with image documentation. Examination was focused on the right upper quadrant. COMPARISON: Abdomen, limited US 05/11/2018 7:26 AM FINDINGS: Liver: Normal. No masses. Gallbladder: 3 mm hypodensity demonstrated on the anterior wall of the gallbladder which may represent a cholesterol polyp or adherent calculus. Negative sonographic Xiong's sign. Common bile duct: Common bile duct measures 5 mm. Pancreas: Visualized pancreas is unremarkable. Right kidney: Right kidney measures 12.7 x 5.6 x 4.5 cm. IMPRESSION: 3 mm hypodensity demonstrated on the anterior wall of the gallbladder which may represent a cholesterol polyp or adherent calculus. Negative sonographic Xiong's sign. Electronically signed by: Saji Crook On 06/08/2018 18:21:50 PM
--- NOTE | 2018-06-10 19:01 | ECGEPIP ---
Stationary ECG Study [facility] - ED Test Date: 2018-06-09 Pat Name: FLY LLAMAS Department: Room: - Gender: M Porcelain Turner: HANANE : 1980 Requested By: KALEN Burciaga Order Number: [id number] Reading MD: Yancy Salgado Measurements Intervals Taylor Rate: 54 P: 79 SD: 162 QRS: 76 QRSD: 92 T: 62 QT: 418 QTc: 398 Interpretive Statements SINUS BRADYCARDIA WITH SINUS ARRHYTHMIA NO PRIOR FOR COMPARISON Electronically Signed On 06-10-2018 19:00:55 EST by Yancy Salgado
[2018-06-11 09:42] VITALS: BP 125/77
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
== END 2018-06-11 09:45 ==
LOC: M ED 13:48
DX: R45.851 Suicidal ideations (principal); R94.31 Abnormal electrocardiogram [ECG] [EKG]; F19.10 Other psychoactive substance abuse, uncomplicated; F33.9 Major depressive disorder, recurrent, unspecified; F90.9 Attention-deficit hyperactivity disorder, unspecified type; F17.200 Nicotine dependence, unspecified, uncomplicated; Z87.820 Personal history of traumatic brain injury
CPT/HCPCS: 36415; 76705; 80048; 80076; 80307; 82140; 83605; 83690; 84443; 85027; 85610; 85730; 87040; 93005; 96360; 96361; 99285; G0480

== ENCOUNTER 2018-09-22 23:39 | Emergency (ER) | payer OTHER ==
[~2018-09-22] VITALS: Ht 177.8 cm; Wt 79.5 kg
[~2018-09-22 23:39] MED LIST changes: +GENT0.3S36 OS; -GENT3OPD OS; +KETO0.5S2 OS; -KETO5OPD OS; -NAPR-50 PO; +NAPR-837 PO
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
[2018-09-23] MEDS ORDERED: LIDOCAINE 1% MDV 20ML VIAL As Ordered ONE (01:06)
[2018-09-23 01:43] VITALS: BP 113/70
[2018-09-27] MEDS ORDERED: CLONI1TA PO (22:07)
[2018-09-27] MEDS ORDERED: TRAZ-252 PO (22:07)
[2018-09-27] MEDS ORDERED: AUGM875T28 PO (23:35)
== END 2018-09-23 02:11 | disposition home or self-care (01) ==
LOC: M ED 23:39
DX: M54.2 Cervicalgia (principal); S01.81XA Laceration without foreign body of other part of head, initial encounter; Y04.8XXA Assault by other bodily force, initial encounter; Y92.018 Other place in single-family (private) house as the place of occurrence of the external cause; B19.20 Unspecified viral hepatitis C without hepatic coma

== ENCOUNTER 2019-02-02 14:59 | Emergency (ER) | payer MEDICAID, OTHER, SELFPAY ==
[~2019-02-02] VITALS: Ht 185.4 cm; Wt 87.4 kg
[2019-02-02 14:59] VITALS: BP 133/79
[~2019-02-02 14:59] MED LIST changes: +CLONI1TA PO; +TRAZ-252 PO
== END 2019-02-02 16:33 | disposition left against medical advice (07) ==
LOC: M ED 14:59
DX: Z53.21 Procedure and treatment not carried out due to patient leaving prior to being seen by health care provider (principal)

== ENCOUNTER 2019-03-23 21:58 | Emergency (ER) | payer MEDICAID ==
[~2019-03-23] VITALS: Ht 185.4 cm; Wt 79.5 kg
[2019-03-23 21:58] VITALS: BP 135/80
== END 2019-03-23 23:44 | disposition home or self-care (01) ==
LOC: M ED 21:58
DX: S61.200A Unspecified open wound of right index finger without damage to nail, initial encounter (principal); W26.8XXA Contact with other sharp object(s), not elsewhere classified, initial encounter; F17.200 Nicotine dependence, unspecified, uncomplicated

== ENCOUNTER 2019-06-04 06:38 | Emergency (ER) | payer MEDICAID ==
[~2019-06-04] VITALS: Ht 185.4 cm; Wt 88.6 kg
[2019-06-04] MEDS ORDERED: CLON-412 (06:44)
[2019-06-04] MEDS ORDERED: NS 1,000 ML IV ONE (07:15)
[2019-06-04 07:26] LABS: INFLUENZA A AMPLIFICATION NEGATIVE (NEGATIVE); INFLUENZA B AMPLIFICATION NEGATIVE (NEGATIVE)
--- NOTE | 2019-06-04 07:40 | REP ---
PA and lateral chest: Comparison is 02/15/2018. The lung kennedy are clear. The cardiac size is normal. The luis armando, mediastinum, and skeletal structures are unremarkable. Impression: Negative PA and lateral chest. Electronically Signed by Evens Sotelo MD 06/04/2019 07:31 A
[2019-06-04 08:04] LABS: BASO # 0.1 10^3/uL (0.0-0.2); BASO % 0.6 % (0.0-1.0); EOS # 0.4 10^3/uL (0.0-0.5); HEMATOCRIT 37.6 % (42.0-52.0); HEMOGLOBIN 12.9 g/dl (13.5-17.5); LYMPH # 3.9 10^3/uL (1.5-5.0); LYMPH % 27.2 % (24.0-44.0); MEAN CORPUSCULAR HEMOGLOBIN 33.3 pg (27.0-33.0); MEAN CORPUSCULAR HGB CONC 34.3 g/dl (32.0-36.5); MEAN CORPUSCULAR VOLUME 97.2 fl (80.0-96.0); MONO # 1.9 10^3/uL (0.0-0.8); NEUTROPHILS % 55.8 % (36.0-66.0); PLATELET COUNT, AUTOMATED 488 10^3/uL (150-450); RED BLOOD COUNT 3.87 10^6/uL (4.30-6.10); WHITE BLOOD COUNT 14.4 10^3/uL (4.0-10.0)
[2019-06-04 08:17] LABS: ALBUMIN 3.7 GM/DL (3.2-5.2); ALT/SGPT 19 U/L (12-78); BILIRUBIN,DIRECT 0.2 MG/DL (0.0-0.2); BILIRUBIN,TOTAL 0.4 MG/DL (0.2-1.0); BLOOD UREA NITROGEN 13 MG/DL (7-18); CALCIUM LEVEL 8.7 MG/DL (8.5-10.1); CARBON DIOXIDE LEVEL 28 MEQ/L (21-32); CHLORIDE LEVEL 105 MEQ/L (98-107); CREATININE FOR GFR 0.78 MG/DL (0.70-1.30); GLOMERULAR FILTRATION RATE > 60.0 (>60); GLUCOSE, FASTING 81 MG/DL (70-100); POTASSIUM SERUM 3.7 MEQ/L (3.5-5.1); SODIUM LEVEL 140 MEQ/L (136-145); TOTAL PROTEIN 6.9 GM/DL (6.4-8.2)
--- NOTE | 2019-06-04 09:01 | REP ---
RIGHT UPPER EXTREMITY VENOUS ULTRASOUND: HISTORY: Right arm pain and swelling. History of intravenous drug use. FINDINGS: The right internal jugular, right subclavian, right axillary, right brachial, and right basilic veins are anechoic and compressible with unremarkable Doppler interrogation. However, the right cephalic vein shows thrombotic occlusion. IMPRESSION: Thrombotic occlusion of the right cephalic vein. No other evidence of right upper extremity venous thrombosis. Electronically Signed by Patrick Breaux MD 06/04/2019 02:35 P
--- NOTE | 2019-06-04 09:02 | REP ---
SOFT-TISSUE ULTRASOUND RIGHT FOREARM. HISTORY: Intravenous drug use. Right arm pain and swelling. FINDINGS: Swelling and thickening of the subcutaneous soft tissues is seen in the area of concern on sonography. No abnormal fluid collection is seen. IMPRESSION: Diffuse subcutaneous edema seen. No abnormal fluid collection. Electronically Signed by Patrick Breaux MD 06/04/2019 02:35 P
[2019-06-04] MEDS ORDERED: ceFAZolin SOD 1 GM in D5W MINI-BAG PLUS 50 ML IV ONE (09:15)
[2019-06-04] MEDS ORDERED: ISOVUE-370 76% 100ML VIAL (Q9967) As Ordered ONE (09:42)
--- NOTE | 2019-06-04 10:53 | REP ---
CT ANGIOGRAM CHEST: TECHNIQUE: Axial contrast enhanced images from the thoracic inlet to the upper abdomen using 100 mL Isovue 370 intravenous contrast material with multiplanar reformations. There is no CT evidence of pulmonary embolism. There is no thoracic aortic aneurysm or dissection. Heart is normal in size. No mediastinal or hilar adenopathy is seen. There is no pleural or pericardial effusion. Scattered subpleural bullous change is seen diffusely bilaterally. There is mild bibasilar fibroatelectatic change. No consolidation is seen. Visualized upper abdominal structures are grossly unremarkable. IMPRESSION: No CT evidence of pulmonary embolism. Scattered subpleural bullous change diffusely bilaterally. Electronically Signed by Evens Gee MD 06/04/2019 11:10 A
[2019-06-04] MEDS ORDERED: IBUP-1022 PO (11:05)
[2019-06-04] MEDS ORDERED: KEFL500C17 PO (11:05)
[2019-06-04 11:16] VITALS: BP 129/63
--- NOTE | 2019-06-04 15:19 | ECGEPIP ---
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 Order Number: [id number] Reading MD: Terrence Hawkins Measurements Intervals [place] Rate: 57 P: 80 MN: 166 QRS: 78 QRSD: 105 T: 69 QT: 464 QTc: 455 Interpretive Statements SINUS BRADYCARDIA Similar to tracing done 06-09-18 Electronically Signed on 06-04-2019 15:19:17 EST by Terrence Hawkins
== END 2019-06-04 11:28 | disposition home or self-care (01) ==
LOC: M ED 06:38
DX: L03.113 Cellulitis of right upper limb (principal); I82.611 Acute embolism and thrombosis of superficial veins of right upper extremity; B19.20 Unspecified viral hepatitis C without hepatic coma; Z79.899 Other long term (current) drug therapy; F17.210 Nicotine dependence, cigarettes, uncomplicated; F19.10 Other psychoactive substance abuse, uncomplicated
CPT/HCPCS: 71046; 71275; 76882; 80048; 80076; 83605; 85025; 87040; 87502; 93005; 93971; 96361; 96365; 96366; 99284; J0690; Q9967

== ENCOUNTER 2019-09-02 18:25 | Emergency (ER) | payer MEDICAID, OTHER ==
[~2019-09-02 18:25] MED LIST changes: +CLON-412; +IBUP-1022 PO; +KEFL500C17 PO
[2019-09-02] MEDS ORDERED: CLON0.2T (18:39)
[2019-09-02] MEDS ORDERED: FLUO20CA22 (18:39)
[2019-09-02] MEDS ORDERED: VITA-145 (18:39)
[2019-09-02] MEDS ORDERED: OXCA300T14 (18:39)
[2019-09-02] MEDS ORDERED: QUET5TAB (18:39)
[2019-09-02 19:14] LABS: HEMATOCRIT 43.6 % (42.0-52.0); HEMOGLOBIN 14.8 g/dl (13.5-17.5); MEAN CORPUSCULAR HEMOGLOBIN 32.1 pg (27.0-33.0); MEAN CORPUSCULAR HGB CONC 33.9 g/dl (32.0-36.5); MEAN CORPUSCULAR VOLUME 94.6 fl (80.0-96.0); PLATELET COUNT, AUTOMATED 516 10^3/uL (150-450); RED BLOOD COUNT 4.61 10^6/uL (4.30-6.10); WHITE BLOOD COUNT 11.4 10^3/uL (4.0-10.0)
[2019-09-02] MEDS ORDERED: NS 1,000 ML IV ONE (19:15)
--- NOTE | 2019-09-02 19:30 | REPVR ---
PROCEDURE INFORMATION: Exam: CT Head Without Contrast Exam date and time: 09/02/2019 7:17 PM Age: 38 years old Clinical indication: Syncope and collapse TECHNIQUE: Imaging protocol: Computed tomography of the head without contrast. Radiation optimization: All CT scans at this facility use at least one of these dose optimization techniques: automated exposure control; mA and/or kV adjustment per patient size (includes targeted exams where dose is matched to clinical indication); or iterative reconstruction. COMPARISON: CT Head without contrast 09/23/2018 12:20 AM FINDINGS: Brain: No hemorrhage. Unremarkable white matter for the patient's age. No mass effect. No evolving territorial infarct. Ventricles: No ventriculomegaly. Bones/joints: Unremarkable. No acute fracture. Sinuses: Visualized sinuses are unremarkable. No fluid levels. Mastoid air cells: Visualized mastoid air cells are well aerated. Soft tissues: Unremarkable. IMPRESSION: No acute intracranial abnormality seen. Electronically signed by: Marlyn Gill On 09/02/2019 19:29:58 PM
[2019-09-02 19:32] LABS: ATYPICAL LYMPH 4 % (0-5); BASOPHILS 1 % (0-1); EOSINOPHILS 1 % (0-3); LYMPHOCYTES 41 % (16-44); MONOCYTES 8 % (0-5)
[2019-09-02 19:33] LABS: PLATELET ESTIMATE INCREASED (NORMAL)
[2019-09-02 19:34] LABS: NEUTROPHILS 45 % (28-66)
--- NOTE | 2019-09-02 19:37 | REP ---
Portable chest x-ray: Single view. History: Syncope/near syncope. Comparison chest x-ray: June 04, 2019. Findings: Monitoring electrodes are seen. The lungs are well inflated and clear. The pleural angles are sharp. Heart size is normal. Pulmonary vasculature is not increased. No significant bony abnormality is seen. Impression: No active disease. Electronically Signed by Patrick Breaux MD 09/02/2019 07:29 P
[2019-09-02 19:38] LABS: BLOOD UREA NITROGEN 6 MG/DL (7-18); CALCIUM LEVEL 9.3 MG/DL (8.5-10.1); CARBON DIOXIDE LEVEL 24 MEQ/L (21-32); CHLORIDE LEVEL 104 MEQ/L (98-107); CK-MB VALUE MASS 1.7 NG/ML (<3.6); CPK CREATINE PHOSPHOKINASE 90 U/L (39-308); CREATININE FOR GFR 0.88 MG/DL (0.70-1.30); ETHYL ALCOHOL (ETHANOL) < 0.003 % (0.000-0.010); FREE T4 1.38 NG/DL (0.76-1.46); GLOMERULAR FILTRATION RATE > 60.0 (>60); GLUCOSE, FASTING 74 MG/DL (70-100); MAGNESIUM LEVEL 2.3 MG/DL (1.8-2.4); MB/CK RELATIVE INDEX 1.89 (< OR =4); POTASSIUM SERUM 3.8 MEQ/L (3.5-5.1); SODIUM LEVEL 137 MEQ/L (136-145); TROPONIN I < 0.02 NG/ML (< 0.10)
[2019-09-02 20:14] VITALS: BP 127/66
--- NOTE | 2019-09-02 20:33 | ECGEPIP ---
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
== END 2019-09-02 21:06 | disposition home or self-care (01) ==
LOC: M ED 18:25
DX: E86.0 Dehydration (principal); D47.3 Essential (hemorrhagic) thrombocythemia; B18.2 Chronic viral hepatitis C; F43.20 Adjustment disorder, unspecified; F90.9 Attention-deficit hyperactivity disorder, unspecified type; F19.10 Other psychoactive substance abuse, uncomplicated; F17.200 Nicotine dependence, unspecified, uncomplicated; Z87.820 Personal history of traumatic brain injury; Z90.81 Acquired absence of spleen; Z79.899 Other long term (current) drug therapy
CPT/HCPCS: 36415; 70450; 71045; 80048; 82550; 82553; 83605; 83735; 84439; 84443; 85025; 93005; 93041; 94760; 96360; 99285; G0480

== ENCOUNTER 2019-11-11 23:16 | Emergency (ER) | payer OTHER ==
[~2019-11-11] VITALS: Ht 185.4 cm; Wt 79.5 kg
[~2019-11-11 23:16] MED LIST changes: +CLON0.2T PO; +FLUO20CA22 PO; +OXCA300T14 PO; +QUET5TAB PO; +VITA-145 PO
[2019-11-12] MEDS ORDERED: diphenhydrAMINE 50MG/ML VIAL (J1200) IV ONE
[2019-11-12] MEDS ORDERED: METOCLOPRAMIDE INJ 10MG/2ML VIAL (J2765 PER 1) IV ONE
[2019-11-12] MEDS ORDERED: KETOROLAC 30 MG/ML 1ML VIAL IV ONE
[2019-11-12] MEDS ORDERED: NS 1,000 ML IV ONE
[2019-11-12 01:00] LABS: BASO # 0.1 10^3/uL (0.0-0.2); BASO % 0.8 % (0.0-1.0); EOS # 0.3 10^3/uL (0.0-0.5); EOS % 2.6 % (0.0-3.0); HEMATOCRIT 40.2 % (42.0-52.0); HEMOGLOBIN 14.3 g/dl (13.5-17.5); LYMPH # 3.5 10^3/uL (1.5-5.0); LYMPH % 35.6 % (24.0-44.0); MEAN CORPUSCULAR HEMOGLOBIN 32.9 pg (27.0-33.0); MEAN CORPUSCULAR HGB CONC 35.6 g/dl (32.0-36.5); MEAN CORPUSCULAR VOLUME 92.6 fl (80.0-96.0); MONO # 1.1 10^3/uL (0.0-0.8); MONO % 11.5 % (0.0-5.0); NEUTROPHILS # 4.9 10^3/uL (1.5-8.5); NEUTROPHILS % 49.3 % (36.0-66.0); PLATELET COUNT, AUTOMATED 522 10^3/uL (150-450); RED BLOOD COUNT 4.34 10^6/uL (4.30-6.10); WHITE BLOOD COUNT 9.9 10^3/uL (4.0-10.0)
[2019-11-12 01:15] LABS: CK-MB VALUE MASS 1.5 NG/ML (<3.6); CPK CREATINE PHOSPHOKINASE 153 U/L (39-308); MB/CK RELATIVE INDEX 0.98 (< OR =4); TROPONIN I < 0.02 NG/ML (< 0.10)
[2019-11-12 03:38] VITALS: BP 108/66
--- NOTE | 2019-11-12 20:23 | ECGEPIP ---
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
== END 2019-11-12 03:43 | disposition home or self-care (01) ==
LOC: M ED 23:16
DX: M54.5 Low back pain (principal); F12.10 Cannabis abuse, uncomplicated; F17.200 Nicotine dependence, unspecified, uncomplicated; B18.2 Chronic viral hepatitis C; Z79.899 Other long term (current) drug therapy; Z87.820 Personal history of traumatic brain injury
CPT/HCPCS: 80047; 82550; 82553; 85025; 93005; 96361; 96374; 96375; 99284; J1200; J1885; J2765

== ENCOUNTER → 2019-12-23 | Outpatient (REF) | payer OTHER ==
[2019-12-23 13:37] LABS: BASO # 0.1 10^3/uL (0.0-0.2); BASO % 0.9 % (0.0-1.0); EOS # 0.2 10^3/uL (0.0-0.5); EOS % 1.8 % (0.0-3.0); HEMATOCRIT 46.4 % (42.0-52.0); HEMOGLOBIN 16.2 g/dl (13.5-17.5); LYMPH # 3.5 10^3/uL (1.5-5.0); LYMPH % 29.2 % (24.0-44.0); MEAN CORPUSCULAR HGB CONC 34.9 g/dl (32.0-36.5); MEAN CORPUSCULAR VOLUME 94.5 fl (80.0-96.0); MONO # 1.4 10^3/uL (0.0-0.8); MONO % 11.7 % (0.0-5.0); NEUTROPHILS # 6.8 10^3/uL (1.5-8.5); NEUTROPHILS % 56.1 % (36.0-66.0); PLATELET COUNT, AUTOMATED 600 10^3/uL (150-450); RED BLOOD COUNT 4.91 10^6/uL (4.30-6.10); WHITE BLOOD COUNT 12.1 10^3/uL (4.0-10.0)
[2019-12-23 13:50] LABS: ALBUMIN 4.5 GM/DL (3.2-5.2); ALT/SGPT 25 U/L (12-78); BILIRUBIN,TOTAL 1.2 MG/DL (0.2-1.0); BLOOD UREA NITROGEN 21 MG/DL (7-18); CALCIUM LEVEL 9.8 MG/DL (8.5-10.1); CARBON DIOXIDE LEVEL 24 MEQ/L (21-32); CHLORIDE LEVEL 106 MEQ/L (98-107); CHOLESTEROL LEVEL 220 MG/DL (<200); CHOLESTEROL RISK RATIO 3.437 (<5); CREATININE FOR GFR 1.08 MG/DL (0.70-1.30); FREE T4 1.25 NG/DL (0.76-1.46); GLOMERULAR FILTRATION RATE > 60.0 (>60); GLUCOSE, FASTING 90 MG/DL (70-100); HDL CHOLESTEROL 64 MG/DL (>40); LDL CHOLESTEROL 143 MG/DL (<100); NON-HDL-C 156 MG/DL; POTASSIUM SERUM 4.2 MEQ/L (3.5-5.1); SODIUM LEVEL 138 MEQ/L (136-145); THYROID STIMULATING HORMONE 0.977 uIU/ML (0.358-3.740); TOTAL PROTEIN 8.4 GM/DL (6.4-8.2); TRIGLYCERIDES LEVEL 65 MG/DL (<150)
== END ==
LOC: M LAB REF 08:20
PROVIDERS: ATTEND Family Medicine
DX: Z13.9 Encounter for screening, unspecified (principal); Z13.228 Encounter for screening for other metabolic disorders; B17.10 Acute hepatitis C without hepatic coma; R55 Syncope and collapse; M54.5 Low back pain; F32.9 Major depressive disorder, single episode, unspecified

== ENCOUNTER 2020-01-07 22:09 | Emergency (ER) | payer OTHER ==
[2020-01-07 22:16] VITALS: BP 147/82
[2020-01-07 23:09] LABS: HEMATOCRIT 38.7 % (42.0-52.0); HEMOGLOBIN 13.8 g/dl (13.5-17.5); MEAN CORPUSCULAR HGB CONC 35.7 g/dl (32.0-36.5); MEAN CORPUSCULAR VOLUME 95.3 fl (80.0-96.0); PLATELET COUNT, AUTOMATED 457 10^3/uL (150-450); RED BLOOD COUNT 4.06 10^6/uL (4.30-6.10); WHITE BLOOD COUNT 12.7 10^3/uL (4.0-10.0)
[2020-01-07 23:29] LABS: AMPHETAMINES LEVEL URINE POSITIVE (NEGATIVE); BARBITURATES URINE NEGATIVE (NEGATIVE); BENZODIAZEPINES URINE NEGATIVE (NEGATIVE); CANNABINOIDS URINE POSITIVE (NEGATIVE); COCAINE METABOLITE URINE NEGATIVE (NEGATIVE); METHADONE URINE NEGATIVE (NEGATIVE); OPIATES URINE NEGATIVE (NEGATIVE); PHENCYCLIDINE URINE NEGATIVE (NEGATIVE)
[2020-01-07 23:54] LABS: ACETAMINOPHEN LEVEL < 2.0 UG/ML (10.0-30.0); ALBUMIN 3.7 GM/DL (3.2-5.2); ALT/SGPT 24 U/L (12-78); BILIRUBIN,DIRECT 0.2 MG/DL (0.0-0.2); BILIRUBIN,TOTAL 0.8 MG/DL (0.2-1.0); BLOOD UREA NITROGEN 14 MG/DL (7-18); CALCIUM LEVEL 8.2 MG/DL (8.5-10.1); CARBON DIOXIDE LEVEL 25 MEQ/L (21-32); CHLORIDE LEVEL 108 MEQ/L (98-107); CREATININE FOR GFR 1.11 MG/DL (0.70-1.30); ETHYL ALCOHOL (ETHANOL) < 0.003 % (0.000-0.010); GLOMERULAR FILTRATION RATE > 60.0 (>60); GLUCOSE, FASTING 100 MG/DL (70-100); POTASSIUM SERUM 3.8 MEQ/L (3.5-5.1); SALICYLATE LEVEL 2.2 MG/DL (5.0-30.0); SODIUM LEVEL 137 MEQ/L (136-145); TOTAL PROTEIN 7.2 GM/DL (6.4-8.2)
== END 2020-01-08 01:14 | disposition home or self-care (01) ==
LOC: M ED 22:09
DX: Z04.6 Encounter for general psychiatric examination, requested by authority (principal); F33.9 Major depressive disorder, recurrent, unspecified; Z79.899 Other long term (current) drug therapy; F17.210 Nicotine dependence, cigarettes, uncomplicated
CPT/HCPCS: 36415; 80048; 80076; 80307; 84443; 85027; 99284; G0480

== ENCOUNTER 2020-04-07 07:36 | Inpatient (IN) | payer MEDICAID, OTHER ==
[~2020-04-07] VITALS: Ht 185.4 cm; Wt 85.1 kg
[2020-04-07] MEDS ORDERED: LORazepam 1 MG TAB PO STA (07:49)
[2020-04-07 08:27] LABS: HEMATOCRIT 41.9 % (42.0-52.0); HEMOGLOBIN 14.6 g/dl (13.5-17.5); MEAN CORPUSCULAR HEMOGLOBIN 32.7 pg (27.0-33.0); MEAN CORPUSCULAR HGB CONC 34.8 g/dl (32.0-36.5); MEAN CORPUSCULAR VOLUME 93.7 fl (80.0-96.0); PLATELET COUNT, AUTOMATED 592 10^3/uL (150-450); RED BLOOD COUNT 4.47 10^6/uL (4.30-6.10); WHITE BLOOD COUNT 12.4 10^3/uL (4.0-10.0)
[2020-04-07 08:55] LABS: ACETAMINOPHEN LEVEL < 2.0 UG/ML (10.0-30.0); ALBUMIN 4.1 GM/DL (3.2-5.2); ALT/SGPT 24 U/L (12-78); AMPHETAMINES LEVEL URINE NEGATIVE (NEGATIVE); BARBITURATES URINE NEGATIVE (NEGATIVE); BENZODIAZEPINES URINE NEGATIVE (NEGATIVE); BILIRUBIN,DIRECT 0.2 MG/DL (0.0-0.2); BILIRUBIN,TOTAL 0.6 MG/DL (0.2-1.0); BLOOD UREA NITROGEN 21 MG/DL (7-18); CALCIUM LEVEL 9.6 MG/DL (8.5-10.1); CANNABINOIDS URINE POSITIVE (NEGATIVE); CARBON DIOXIDE LEVEL 24 MEQ/L (21-32); CHLORIDE LEVEL 106 MEQ/L (98-107); COCAINE METABOLITE URINE NEGATIVE (NEGATIVE); ETHYL ALCOHOL (ETHANOL) < 0.003 % (0.000-0.010); GLOMERULAR FILTRATION RATE > 60.0 (>60); GLUCOSE, FASTING 106 MG/DL (70-100); METHADONE URINE NEGATIVE (NEGATIVE); OPIATES URINE NEGATIVE (NEGATIVE); PHENCYCLIDINE URINE NEGATIVE (NEGATIVE); POTASSIUM SERUM 3.9 MEQ/L (3.5-5.1); SALICYLATE LEVEL 1.7 MG/DL (5.0-30.0); SODIUM LEVEL 137 MEQ/L (136-145); TOTAL PROTEIN 8.1 GM/DL (6.4-8.2)
[2020-04-07 09:48] LABS: RSV AMPLIFICATION NEGATIVE (NEGATIVE)
[2020-04-07] MEDS ORDERED: ACETAMINOPHEN TAB 650MG DOSE (2X325MG) PO PRN (11:45)
[2020-04-07] MEDS ORDERED: traZODone 50 MG TAB PO PRN (11:45)
[2020-04-07] MEDS ORDERED: MOM 30ML SUSPENSION UDC PO PRN (11:45)
[2020-04-07] MEDS ORDERED: MAALOX 30 ML SUSP *UDC PO PRN (11:45)
[2020-04-07 13:11] VITALS: BP 125/66
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
[2020-04-07] MEDS ORDERED: OLANZapine ORAL DISINTEGRATING TAB 5MG PO PRN (18:00)
[2020-04-08 06:27] VITALS: BP 125/61
[2020-04-08] MEDS ORDERED: INFLUENZA QUADRIVALENT PF VACCINE 0.5ML SYRINGE IM ONE (09:00)
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
[2020-04-08 17:01] VITALS: BP 123/64
--- NOTE | 2020-04-08 17:37 | MHIPNPDOC ---
[facility] Progress Note Progress Note DATE OF SERVICE: 04/08/20 HISTORY: As per previous notes: "Pt presented to ED via [facility] after stating suicidal. Pt stated, "I'm lost, I'm on a downhill slide, I have nothing". Pt reported stressors as, sanctioned from [employer] 180 ays, has no food, no family, not sure if he has a place to live, on probation for 3 years. Pt's PO is Aries Wom[employer]. Pt has hx of rehabs, last rehab at [facility] 2018, according to Pt. Pt stated one previous suicidal attempt, last year, using scissors" VITAL SIGNS: See below. NEW TEST RESULTS: See below CURRENT MEDICATIONS: See below. Mental Status Examination General Appearance: unkempt, disheveled, hospital scubs/clothing Build: average Demeanor: guarded Eye Contact: improving Activity: average Behavior: cooperative Speech: rapid, garbled at times Mood: mildly irritable Affect: congruent with mood Thought Process: logical/linear, Thought Content (Delusions): none reported Thought Content (Other): ideas of reference. Denies SI/HI or psychosis but reports anxious, depressed and angry thoughts. At times, he has had passive suicidal ideation Thought Content (Aggressive): none reported Perception (Hallucinations): none reported Perception (Other): none reported Cognition (Impairment of): attention/concentration Cognition(Intelligence Est.): average Oriented: Awake, Alert, Oriented times three Insight: poor Judgment: Poor Psychosis: Denies Diagnoses 1. Unspecified depressive disorder 2. substance Abuse 3. R/O substance induced mood disorder 4. Adjustment Disorder with depression and anxiety ASSESSMENT: the patient is blaming the friend he used to live with. He feels that it was unfair for her to ask him to leave her house. They have been friends for a long period of time but years ago they had a romantic relationship. he says she got upset because he was talking to one of her friends and for that reason she yelled at him and asked him to leave, knowing that he had nowhere to go nor he had relatives or friends to go to. Until june this year, he took Trileptal 300 mgs PO BID, fluoxetine 20 mgs PO daily and Seroquel 50 mgs PO QHS. I will start him on the same medications, he has not been aggressive but he could be easily irritable because he is not using any drugs ( although he says he doesn't have any cravings), because he is frustrated because he doesn't have a place to live or to go to, because he has no social/family support. He probably has been masking his emotions with his substance abuse for years. he h as problems sleeping, he will bnefit from Seroquel plus it will help him to stabilize his mood. He has an elevated shite blood cell count and platelet count. A peripheral smear was ordered but it could not be added on. Will re order another CBC with differential for tomorrow in a.m. MANAGEMENT PLAN: As above TIME SPENT: 15 minutes. Vital Signs Vital Signs Date Time Temp Pulse Resp B/P (MAP) Pulse Ox O2 Delivery O2 Flow Rate FiO2 04/08/20 17:01 97.8 77 16 123/64 (83) 97 Room Air Laboratory Data 24H Labs Laboratory Tests 2 04/08/20 12:29: Differential Slide Review Report, Peripheral Blood Smear Path Consult PERIPHERAL SMEAR Current Medications Current Medications Medications (Trade) Dose Ordered Sig/An Route PRN Reason Start Time Stop Time Status Last Admin Dose Admin Acetaminophen (Tylenol Tab) 650 mg Q6HP PRN PO HEADACHE or DISCOMFORT 04/07/20 11:45 Al Hydrox/Mg Hydrox/Simethicone (Mylanta) 30 ml Q4HP PRN PO HEARTBURN/INDIGESTION 04/07/20 11:45 Home Med (Med Rec Complete!) ASDIRECTED XX 04/07/20 10:45 04/07/20 10:49 DC Lorazepam (Ativan) 1 mg STAT STAT PO 04/07/20 07:49 04/07/20 07:50 DC 04/07/20 08:16 Magnesium Hydroxide (Milk Of Magnesia) 30 ml DAILYPRN PRN PO CONSTIPATION 04/07/20 11:45 Olanzapine (ZyPREXA ZYDIS) 5 mg Q6HP PRN PO ANXIETY/AGITATION 04/07/20 18:00 Trazodone HCl (Desyrel) 50 mg QHSP PRN PO INSOMNIA 04/07/20 11:45 Allergies Coded Allergies: No Known Allergies (Verified , 04/27/18) ANURADHA BRADFORD MD Apr 08, 2020 17:19
[2020-04-08] MEDS: QUEtiapine FUMARATE 50 MG TAB PO SCH (21:38)
[2020-04-08] MEDS: OXcarbazepine 300 MG TAB PO SCH (21:38)
[2020-04-09 06:36] VITALS: BP 149/79
[2020-04-09 07:12] LABS: BASO # 0.1 10^3/uL (0.0-0.2); BASO % 0.6 % (0.0-1.0); EOS # 0.3 10^3/uL (0.0-0.5); EOS % 3.1 % (0.0-3.0); HEMATOCRIT 41.1 % (42.0-52.0); HEMOGLOBIN 13.8 g/dl (13.5-17.5); LYMPH # 3.1 10^3/uL (1.5-5.0); LYMPH % 31.3 % (24.0-44.0); MEAN CORPUSCULAR HEMOGLOBIN 31.9 pg (27.0-33.0); MEAN CORPUSCULAR HGB CONC 33.6 g/dl (32.0-36.5); MEAN CORPUSCULAR VOLUME 94.9 fl (80.0-96.0); MONO # 0.9 10^3/uL (0.0-0.8); MONO % 9.2 % (0.0-5.0); NEUTROPHILS # 5.5 10^3/uL (1.5-8.5); NEUTROPHILS % 55.4 % (36.0-66.0); PLATELET COUNT, AUTOMATED 569 10^3/uL (150-450); RED BLOOD COUNT 4.33 10^6/uL (4.30-6.10); WHITE BLOOD COUNT 9.9 10^3/uL (4.0-10.0)
[2020-04-09] MEDS: OXcarbazepine 300 MG TAB PO SCH ×2 (09:15→21:09)
[2020-04-09] MEDS: FLUoxetine 20 MG CAP PO SCH (09:15)
[2020-04-09 16:21] VITALS: BP 120/62
[2020-04-09] MEDS: QUEtiapine FUMARATE 50 MG TAB PO SCH (21:09)
[2020-04-10 06:00] VITALS: BP 133/60
[2020-04-10] MEDS: FLUoxetine 20 MG CAP PO SCH (09:03)
[2020-04-10] MEDS: OXcarbazepine 300 MG TAB PO SCH ×2 (09:03→20:09)
[2020-04-10 16:33] VITALS: BP 132/73
[2020-04-10] MEDS: QUEtiapine FUMARATE 50 MG TAB PO SCH (20:09)
--- NOTE | 2020-04-10 20:45 | MHIPN ---
[facility] PROGRESS NOTE DATE: 04/09/2020 The patient today states "I'm feeling all right." He tells me that he is not depressed, that he slept okay, he has no complaints. MENTAL STATUS EXAMINATION: This patient is alert and oriented times three. Eye contact fair. Psychomotor activity is decreased. There is no formal thought disorder noted. His mood is "all right." Affect flat. He denies suicidal or homicidal ideation. His concentration is fair. Memory is intact. Insight and judgment is fair. DIAGNOSES: Unspecified depressive disorder. Substance abuse. TREATMENT PLAN: At this point, we will continue to monitor the patient for continued elevation and stabilization of his mood and continued resolution of suicidal ideation.
[2020-04-11 06:24] VITALS: BP 131/73
--- NOTE | 2020-04-11 08:05 | MHIPNPDOC ---
[facility] Progress Note Progress Note DATE OF SERVICE: 04/11/20 HISTORY: The patient is met with today, he reports he is doing better and is begun to think about how his discharge will go. His normal behavior although iso lative to his room at times, he reports the medications helpful and he starting to realize that people who he thought were not supportive action are supportive and that he has a good support system people who will help him get back on his feet. He otherwise reports no depression describing that he is feeling much improved.. VITAL SIGNS: See below. NEW TEST RESULTS: None CURRENT MEDICATIONS: See below. MENTAL STATUS EXAMINATION: General: Well dressed with good hygiene Speech: Spontaneous and fluid Thought processes: Linear and logical Thought content: Future orientated Abstract reasoning, and computation: Intact Description of associations: Intact Description of abnormal or psychotic thoughts:Denies any suicidal or homicidal ideation. Denies any auditory or visual hallucinations. Does not appear to be responding to internal stimuli. Does not appear to be endorsing any bizarre or p aranoid ideation. Judgment: Good Insight: Good Orientation: Alert and orientated 3 Recent and remote memory: Intact Attention span and concentration: Intact Fund of knowledge: Adequate Mood: "Okay" Affect: Euthymic with a full range DIAGNOSES: 1. Unspecified depressive disorder. 2. Alcohol use disorder. ASSESSMENT: The patient appears to be making good progress on his current medications, other than some mild back pain which will be amenable to the Lidoderm patch, he appears like he is getting close to ready for discharge, will begin the process of safety planning with potential discharge for tomorrow assuming that he remains without suicidal thoughts or other concerning behavior MANAGEMENT PLAN: Continue medications as currently. TIME SPENT: 15 minutes. Vital Signs Vital Signs Date Time Temp Pulse Resp B/P (MAP) Pulse Ox O2 Delivery O2 Flow Rate FiO2 04/11/20 06:24 97.6 65 16 131/73 (92) 98 Room Air Current Medications Current Medications Medications (Trade) Dose Ordered Sig/An Route PRN Reason Start Time Stop Time Status Last Admin Dose Admin Acetaminophen (Tylenol Tab) 650 mg Q6HP PRN PO HEADACHE or DISCOMFORT 04/07/20 11:45 Al Hydrox/Mg Hydrox/Simethicone (Mylanta) 30 ml Q4HP PRN PO HEARTBURN/INDIGESTION 04/07/20 11:45 Fluoxetine HCl (PROzac) 20 mg QAM PO 04/09/20 09:00 04/10/20 09:03 Home Med (Med Rec Complete!) ASDIRECTED XX 04/07/20 10:45 04/07/20 10:49 DC Lorazepam (Ativan) 1 mg STAT STAT PO 04/07/20 07:49 04/07/20 07:50 DC 04/07/20 08:16 Magnesium Hydroxide (Milk Of Magnesia) 30 ml DAILYPRN PRN PO CONSTIPATION 04/07/20 11:45 Olanzapine (ZyPREXA ZYDIS) 5 mg Q6HP PRN PO ANXIETY/AGITATION 04/07/20 18:00 Oxcarbazepine (Trileptal) 300 mg BID PO 04/08/20 21:00 04/10/20 20:09 Quetiapine Fumarate (SEROquel) 50 mg QHS PO 04/08/20 21:00 04/10/20 20:09 Trazodone HCl (Desyrel) 50 mg QHSP PRN PO INSOMNIA 04/07/20 11:45 Cancel Allergies Coded Allergies: No Known Allergies (Verified , 04/27/18) AKBAR YOUSIF DO Apr 11, 2020 08:05
--- NOTE | 2020-04-11 08:14 | MHIPN ---
[facility] PROGRESS NOTE DATE: 04/10/2020 The patient today states, "I'm feeling a lot better." He feels that this is due to the fact that he is back on his medications. He says he slept good. MENTAL STATUS EXAMINATION: He is alert and oriented times three, pleasant and cooperative, verbally spontaneous. Eye contact good. Mood is "better." Affect full range and appropriate. He is not psychotic, suicidal, or homicidal. Concentration and memory is good. Insight and judgment good. DIAGNOSES: Unspecified depressive disorder. Substance abuse. Rule out substance induced mood disorder. TREATMENT PLAN: We will continue to monitor the patient for continued elevation and stabilization of his mood and continued resolution of suicidal ideations.
[2020-04-11] MEDS ORDERED: LIDOCAINE 5% (LIDODERM) PATCH TD SCH ×2 (09:00→21:00)
[2020-04-11] MEDS: OXcarbazepine 300 MG TAB PO SCH ×2 (09:19→21:12)
[2020-04-11] MEDS: FLUoxetine 20 MG CAP PO SCH (09:19)
[2020-04-11 17:51] VITALS: BP 132/65
[2020-04-11] MEDS ORDERED: **NOTE PATIENT COMMENT** MISC XX SCH (21:00)
[2020-04-11] MEDS: QUEtiapine FUMARATE 50 MG TAB PO SCH (21:12)
[2020-04-12 06:26] VITALS: BP_SYST 129; BP_SYST 135; BP_DIAS 62; BP_DIAS 72
[2020-04-12] MEDS: FLUoxetine 20 MG CAP PO SCH (08:16)
[2020-04-12] MEDS: OXcarbazepine 300 MG TAB PO SCH (08:16)
[2020-04-12] MEDS ORDERED: **NOTE PATIENT COMMENT** MISC XX SCH (09:00)
--- NOTE | 2020-04-12 09:10 | MHDSPDOC ---
[facility] Discharge Summary Discharge Summary DATE OF ADMISSION: Apr 07, 2020 at 11:36 DATE OF DISCHARGE:Apr 12, 2020 at 13:00 DISCHARGE DIAGNOSES: Other depressive disorder CONSULTANTS INVOLVED:[ None (basic hospitalist screening)] REASON FOR ADMISSION & TREATMENT AND PROGRESS ON THE UNIT : The patient was admitted to the inpatient mental health unit where he was resumed on his Prozac increased to 20 mg daily, he was additionally resumed on Trileptal and Seroquel, of which she had tried in the past and had did not generally well, substance-induced issues had been thought to be part of his presentation and appeared to resolve without issue. He gained better insight and was able to start to plan for a safe discharge discussing with us. People he can work with and started to realize that he had more support than he had previously thought. He had no major behavioral problems and generally was isotope at first but more engaged this time went on. DISCHARGE ASSESSMENT[improved] Legal status considerations: The patient at the time of discharge did not meet criteria for involuntary admission/extension due to having a [normal] mental status exam, [fair] insight into the situation, They are engaged in the discharge process, as well as being friendly and amenable in behavioral control and havent been engaging in any observed concerning behavior or ideation recently. They decline voluntary extension/admission at this time and must be discharged in good manfred, as Im unable to make a case for holding the patient against their will. They may have historical risk factors of admissions and other interactions with psychiatry however, those are not modifiable from a clinical perspective. The patient will need to be discharged in good manfred. MENTAL STATUS EXAMINATION ON DISCHARGE: [General: Well dressed with good hygiene Speech: Spontaneous and fluid Thought processes: Linear and logical Thought content: Future orientated Abstract reasoning, and computation: Intact Description of associations: Intact Description of abnormal or psychotic thoughts:Denies any suicidal or homicidal ideation. Denies any auditory or visual hallucinations. Does not appear to be responding to internal stimuli. Does not appear to be endorsing any bizarre or paranoid ideation. Judgment: fair Insight: fair Orientation: Alert and orientated 3 Recent and remote memory: Intact Attention span and concentration: Intact Fund of knowledge: Adequate Mood: "okay" Affect: Euthymic with a full range] PLAN/FOLLOWUP ARRANGEMENTS: Follow up appointments made (PCP and MH in 5 days of D/C date) and safety plan completed. Safety Planning aspects completed prior to discharge [Medication supplies limited to 7 days with 4 refills to prevent accumulation to OD] [RN reviewed crisis hotline information and other aspects to empower patient to access care in interim before next appointment.] The amount of time spent in the coordination of care for this patient was approximately 30 minutes. Vital Signs/I&Os Vital Signs Date Time Temp Pulse Resp B/P (MAP) Pulse Ox O2 Delivery O2 Flow Rate FiO2 04/12/20 06:26 98.5 59 14 129/72 (91) 97 Room Air Medications Scheduled Fluoxetine Hcl (Fluoxetine HCl) 20 Mg Capsule, 20 MG PO QAM for MOOD for 7 Days, #7 Lidocaine (Lidocaine) 5% Adh..patch, 1 PATCH TD QHS for mood for 30 Days, #30 Oxcarbazepine (Oxcarbazepine) 300 Mg Tablet, 300 MG PO BID for mood for 7 Days, #14 Quetiapine Fumarate (Quetiapine Fumarate) 50 Mg Tablet, 50 MG PO QHS for sleep for 7 Days, #7 Allergies Coded Allergies: No Known Allergies (Verified , 04/27/18) AKBAR YOUSIF DO Apr 12, 2020 09:10
[2020-04-12] MEDS ORDERED: LIDO5TD TD (09:20)
[2020-04-12] MEDS ORDERED: QUET5TAB PO (09:20)
[2020-04-12] MEDS ORDERED: FLUO20CA22 PO (09:20)
[2020-04-12] MEDS ORDERED: OXCA300T14 PO (09:20)
== END 2020-04-12 13:00 | disposition home or self-care (01) | DRG 753 ==
LOC: M ED 07:36 → M ED INP 11:36 → M PSY 13:10
PROVIDERS: ADMIT Psychiatry & Neurology Addiction Medicine; ATTEND Psychiatry & Neurology Addiction Medicine
DX: F32.89 Other specified depressive episodes (principal); F43.23 Adjustment disorder with mixed anxiety and depressed mood; D69.6 Thrombocytopenia, unspecified; F19.10 Other psychoactive substance abuse, uncomplicated; F10.10 Alcohol abuse, uncomplicated; B19.20 Unspecified viral hepatitis C without hepatic coma; R45.851 Suicidal ideations; Z20.828 Contact with and (suspected) exposure to other viral communicable diseases; Z91.5 Personal history of self-harm

== ENCOUNTER 2020-05-22 01:19 | Emergency (ER) | payer MEDICAID, OTHER ==
[~2020-05-22] VITALS: Ht 185.4 cm; Wt 97.2 kg
[~2020-05-22 01:19] MED LIST changes: +LIDO5TD TD; +QUET50TA3 PO; -QUET5TAB PO; -VITA-145 PO; +VITAD1000T PO
[2020-05-22 01:23] VITALS: BP 140/64
--- NOTE | 2020-05-22 02:23 | REPVR ---
PROCEDURE INFORMATION: Exam: CT Lumbar Spine Without Contrast Exam date and time: 05/22/2020 1:58 AM Age: 39 years old Clinical indication: Low back pain TECHNIQUE: Imaging protocol: Computed tomography images of the lumbar spine without contrast. Radiation optimization: All CT scans at this facility use at least one of these dose optimization techniques: automated exposure control; mA and/or kV adjustment per patient size (includes targeted exams where dose is matched to clinical indication); or iterative reconstruction. COMPARISON: CR Spine. Lumbosacral, complete 06/08/2014 5:06 PM FINDINGS: Vertebrae: No acute fracture. Normal alignment. Discs/Spinal canal/Neural foramina: Mild multilevel degenerative disease. Minimal stenosis of the spinal canal at L2-L3 and L4-L5 Sacrum/coccyx: Degenerative changes in the bilateral sacroiliac joints. 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 Soft tissues: Unremarkable. IMPRESSION: No acute fractures. Electronically signed by: Chato Fang On 05/22/2020 02:23:49 AM
[2020-05-22] MEDS ORDERED: NAPR-837 PO (02:29)
[2020-05-22] MEDS ORDERED: CYCL5TAB PO (02:29)
== END 2020-05-22 02:50 | disposition home or self-care (01) ==
LOC: M ED 01:19
DX: G89.29 Other chronic pain (principal); M54.5 Low back pain

== ENCOUNTER 2020-05-26 15:15 | Emergency (ER) | payer OTHER ==
[~2020-05-26] VITALS: Ht 185.4 cm; Wt 79.5 kg
[~2020-05-26 15:15] MED LIST changes: +CYCL5TAB PO; -QUET50TA3 PO; +QUET5TAB PO
--- OUTSIDE RECORDS SUMMARY | 2020-05-26 15:22 | CCD ---
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 Name Role Phone Ramona Briones PCP Allergies, Adverse Reactions, Alerts No Data in Section Problem List No Data in Section Medications No Data in Section Social History Social History Element Description Concept Effective Date Smoking Status Unknown if ever smoked [id number] Immunizations No Data in Section Vital Signs No Data in Section Procedures Date Concept Id Description Targeted Site Concept Targeted Site Concept Type 04/19/2020 [id number] Extended Individual Psychotherapy - 45 min CPT Patient has no history of implantable de vices Encounters Encounter Start Date End Date Encounter Type Description Diagnosis Di agnosis Desc Location Author First Name Author Last Name Npid Taxonomy Cod e Taxonomy Desc Phone Number Location Addr1 Location Addr2 Location 

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
[2020-05-26 16:53] LABS: HEMATOCRIT 38.7 % (42.0-52.0); HEMOGLOBIN 13.5 g/dl (13.5-17.5); MEAN CORPUSCULAR HEMOGLOBIN 32.8 pg (27.0-33.0); MEAN CORPUSCULAR HGB CONC 34.9 g/dl (32.0-36.5); MEAN CORPUSCULAR VOLUME 93.9 fl (80.0-96.0); PLATELET COUNT, AUTOMATED 440 10^3/uL (150-450); RED BLOOD COUNT 4.12 10^6/uL (4.30-6.10); WHITE BLOOD COUNT 8.2 10^3/uL (4.0-10.0)
--- NOTE | 2020-05-26 17:00 | REP ---
INDICATION: pain. COMPARISON: None. TECHNIQUE: Left lower extremity duplex venous ultrasound. FINDINGS: The deep veins are anechoic and fully compressible from the groin to the popliteal fossa in the left lower extremity. Color flow imaging is homogeneous. Spectral Doppler interrogation demonstrates intact respiratory variation in flow and normal manual augmentation of flow. There is no evidence of deep vein thrombosis. IMPRESSION: Negative left lower extremity duplex venous ultrasound. No evidence of deep vein thrombosis. <Electronically signed by Phil Breaux > 05/26/20 [id number]
[2020-05-26 17:12] LABS: AMPHETAMINES LEVEL URINE NEGATIVE (NEGATIVE); BARBITURATES URINE NEGATIVE (NEGATIVE); BENZODIAZEPINES URINE NEGATIVE (NEGATIVE); CANNABINOIDS URINE NEGATIVE (NEGATIVE); COCAINE METABOLITE URINE NEGATIVE (NEGATIVE); METHADONE URINE NEGATIVE (NEGATIVE); OPIATES URINE NEGATIVE (NEGATIVE); PHENCYCLIDINE URINE NEGATIVE (NEGATIVE)
--- OUTSIDE RECORDS SUMMARY | 2020-05-26 17:50 | CCD ---
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 treatments. Return to clinic/ ER for any worsening symptoms or concernsLabs orderedEncounter for screening for other metabolic disorders (YIC29-W30.228) Assessment: Instructions: Counseled patient on all diagnoses/ treatments. Return to clinic/ ER for any worsening symptoms or concernsLabs orderedVaccination (ICD-V05.9) (DZP80-E81) Assessment: Instructions: Flu vaccine givenPatient Instructions/Care Plan: [...] Allergies (updated 08/03/2014) Orders:FluLaval Quadrivalent, preservative free [CPT-94322] 03136 - Immo Admin (over 19 yrs), 1st Vaccine [CPT-77464] COMP METABOLIC PANEL [CPT-92602] CBC W/DIFF [CPT-61662] HgBA1c [CPT-99844] LIPID PANEL [CPT-58172] TSH [CPT-20643] T-4 free [CPT-74441] Vitamin D 250H Unspecified [CPT-02650] URINALYSIS [CPT-94975] Lyme Antibody [CPT-05147] Adult - Ofc Vst, EST, Level IV [CPT-46108] Follow-Up Return to clinic: in 60 days [...] Syringe 0.5 MLMfr / Lot# / Exp.Date: [employer] / [id number] / 10/27/2019Amt. Given / Route / Site: 0.5 mL / IM / Left DeltoidNDC / CVX: [id number] / 150Administered Date: 04/24/2019 14:45VFC Eligibility: Not [...] ever smoked [facility] ([facility])
[2020-05-26 17:51] LABS: ACETAMINOPHEN LEVEL < 2.0 UG/ML (10.0-30.0); ALBUMIN 3.8 GM/DL (3.2-5.2); ALT/SGPT 27 U/L (12-78); BILIRUBIN,DIRECT 0.3 MG/DL (0.0-0.2); BILIRUBIN,TOTAL 0.7 MG/DL (0.2-1.0); BLOOD UREA NITROGEN 16 MG/DL (7-18); CALCIUM LEVEL 9.5 MG/DL (8.5-10.1); CARBON DIOXIDE LEVEL 29 MEQ/L (21-32); CHLORIDE LEVEL 101 MEQ/L (98-107); CPK CREATINE PHOSPHOKINASE 150 U/L (39-308); CREATININE FOR GFR 1.14 MG/DL (0.70-1.30); ETHYL ALCOHOL (ETHANOL) < 0.003 % (0.000-0.010); GLOMERULAR FILTRATION RATE > 60.0 (>60); GLUCOSE, FASTING 101 MG/DL (70-100); POTASSIUM SERUM 4.1 MEQ/L (3.5-5.1); SALICYLATE LEVEL < 1.7 MG/DL (5.0-30.0); SODIUM LEVEL 139 MEQ/L (136-145); TOTAL PROTEIN 7.5 GM/DL (6.4-8.2)
[2020-05-26 18:41] VITALS: BP 142/96
[2020-05-26 18:54] LABS: FREE T4 1.26 NG/DL (0.76-1.46)
== END 2020-05-26 18:57 | disposition home or self-care (01) ==
LOC: M ED 15:15
DX: M79.605 Pain in left leg (principal); Z59.0 Homelessness; B19.20 Unspecified viral hepatitis C without hepatic coma; Z79.899 Other long term (current) drug therapy
CPT/HCPCS: 36415; 80048; 80076; 80307; 82550; 84439; 84443; 85027; 93971; 99284; G0480

== ENCOUNTER 2021-02-13 22:37 | Inpatient (IN) | payer MEDICAID, OTHER, SELFPAY ==
[~2021-02-13] VITALS: Ht 185.4 cm; Wt 95.1 kg
[~2021-02-13 22:37] MED LIST changes: +QUET50TA4 PO; -QUET5TAB PO
--- OUTSIDE RECORDS SUMMARY | 2021-02-13 22:42 | CCD ---
Author Author [facility] Organization [facility] Address Unknown Phone Unavailable Support Name Relationship Address Phone Nicki Alaniz Next Of Kin Unknown Unavailable FISH, EMILY Next Of Kin [address] [place] [address] U Next Of Kin Unknown Unavailable FISH, [place] [address] Allison Saba MD Next Of Kin [address] [place] [address] COUSINS, ANGIE Next Of Kin [address] [place] [address] NICKI ALANIZ Next Of Kin [address] [place] [address] DANNIELLE ALANIZ Next Of Kin [address] [place] [address] DANNIELLE ALANIZ Next Of Kin [address] [place] [address] Deisy Valenzuela Next Of Kin [address] [place] [address] [place] [address] Odette AGUILAR Next Of Kin [address] [place] [address] [employer] [place] [address] Unavailable [email or web address] [address] Unavailable DEALING, LEYDI Next Of Kin [address] [place] [address] AVERY ZAFAR Next Of Kin [address] [place] [address] OMID MONTGOMERY Next Of Kin [address] [facility] [address] [place] [address] SARAHSTONEDY Next Of Kin [address] [facility] [address] [place] [address] RONALDYAHIR MIRELES Next Of Kin [address] [facility] [address] [place] [address] Unavailable Sarah Nieto MD Next Of Kin [address] [place], [place] [id number] León BARGER, Lashae Next Of Kin [address] [place] [address] [address] [place] [address] [place] [address] DENITA Traore, Lashae Next Of Kin [address] [place] [address] Jessica FOY-C, Haydee Next Of Kin [address] [place] [address] "" Next Of Kin [address] [place] [address] COUSINS, ALANAE Next Of Kin [address] [place] [address] CHANCEETELVINA JENSEN Next Of Kin [address] [place] [address] LEON LY Next Of Kin [address] [address] [address] [address] [place] [address] PAUL MARTINEZ Next Of Kin [address] [place] [address] COUSINS, N[place] [address] UE Next Of Kin Unknown Unavailable ADAM GALLARDO Next Of Kin [address] [facility] [address] [place] [address] Care Team Providers Care Guideman Name Role Phone HILLARY ANN RPA-C Unavailable Unavailable HILLARY ANN RPA-C Unavailable Unavailable ANN, HILLARY KEN RPA-C [...] Unavailable ANN, HILLARY KEN RPA-C Unavailable Unavailable Dontae SABA MD Unavailable Unavailable Dontae SABA MD Unavailable Unavailable BROOKS, T ALLISON MD Unavailable Unavailable Dontae SABA MD Unavailable [...] Unavailable Unavailable Dontae SABA MD Unavailable Unavailable BROOKS, Dontae COOPER MD Unavailable Unavailable BROOKS, Dontae COOPER MD Unavailable Unavailable BROOKS, Dontae COOPER MD Unavailable Unavailable BROOKS, Dontae COOPER MD Unavailable Unavailable BROOKS, T ALLISON MIRANDA Unavailable Unavailable BROOKS, T ALLISON MIRADNA Unavailable Unavailable BROOKS, Dontae COOPER MD Unavailable Unavailable BROOKS, Dontae COOPER MD Unavailable Unavailable BROOKS, Dontae COOPER MD Unavailable Unavailable BROOKS, Dontae COOPER MD Unavailable Unavailable BROOKS, Dontae COOPER MD Unavailable Unavailable BROOKS, Dontae COOPER MD Unavailable Unavailable BROOKS, T ALLISON MIRANDA Unavailable Unavailable BROOKS, Dontae COOPER MD Unavailable Unavailable BROOKS, T ALLISON MIRANDA Unavailable Unavailable BROOKS, T ALLISON MIRANDA Unavailable Unavailable BROOKS, Dontae COOPER MD Unavailable Unavailable BROOKS, T ALLISON MIRANDA Unavailable Unavailable BROOKS, T ALLISON MIRANDA Unavailable Unavailable BROOKS, T ALLISON MIRANDA Unavailable Unavailable BROOKS, Dontae COOPER MD Unavailable Unavailable BROOKS, Dontae COOPER MD Unavailable Unavailable BROOKS, Dontae COOPER MD Unavailable Unavailable BROOKS, Dontae COOPER MD Unavailable Unavailable BROOKS, T ALLISON MIRANDA Unavailable Unavailable BROOKS, T ALLISON MIRANDA Unavailable Unavailable BROOKS, T ALLISON MIRANDA Unavailable Unavailable BROOKS, T ALLISON MIRANDA Unavailable Unavailable BROOKS, T ALLISON MIRANDA Unavailable Unavailable BROOKS, T ALLISON MIRANDA Unavailable Unavailable BROOKS, T ALLISON MIRANDA Unavailable Unavailable BROOKS, T ALLISON MIRANDA Unavailable Unavailable Radha Becerra Unavailable AnselmoRamoan Unavailable MattCapri Unavailable Re-disclosure Warning The records that you [...] is protected by Article 27-F of the [facility] Public Health law. If you continue you may have access to information: Regarding HIV / AIDS; Provided by facilities licensed or operated by the [facility] Office of Mental Health; or Provided by the [facility] Office for People With Developmental Disabilities. If such information is present, then the following [facility] mandated warning applies: This information has been [...] law may result in a fine or fci sentence or both. A general authorization for the release of medical or other information is NOT sufficient authorization for further disc losure. Encounters Encounter Providers Location Date Indications Data Source(s ) Attender: Capri Gutierrez 01/20/2021 12:00:00 A M EDT [facility] ([facility]) Penitentiary - Case Management Attender: Capri Gutierrez [facility] 01/18/2021 12:30:00 PM EDT - 01/18/2021 12:30:00 PM EDT [facility] ([facility]) Crisis Intervention - Brief Attender: Capri Gutierrez [facility] 12/19/2020 08:45:00 AM EDT - 12/19/2020 08:45:00 AM EDT [facility] ([facility]) Attender: Capri Gutierrez 12/19/2020 12:00:00 A M EDT [facility] ([facility]) Psychiatric Diagnostic Evaluation (Non-Medical) Attender: Ozzie Becerra [facility] 08/23/2020 09:45:00 AM EDT - 08/23/2020 09:45:00 AM EDT [facility] ([facility]) Attender: Radha Becerra 08/23/2020 12:00:00 AM E DT [facility] ([facility]) Extended Individual Psychotherapy - 45 min Attender: Kathy Alaniz [facility] 04/19/2020 08:00:00 AM EST - 04/19/2020 08:00:00 AM EST [facility] ([facility]) Attender: Ramona Alaniz 04/19/2020 12:00:00 AM EST [facility] ([facility]) Outpatient Attender: KEN BARR 01/12/2020 05:00:14 PM EDT [facility] Outpatient Attender: KEN ANN RPA-Marychuy BARR 01/12/2020 05:00:02 PM EDT [facility] Out[facility] Attender: KEN ANN RPA-C MOMO 01/12/2020 09:48:02 AM EDT [facility] Attender: KEN DEANC MOMO 12/31/2019 03:49:01 PM EDT [facility] Attender: KEN BARR 12/23/2019 11:14:00 AM EDT [facility] Out[facility] Attender: ALLISON SABA MD 12/22/2019 11:31:01 A M EDT [facility] Immunizations Vaccine Date Status Description Data Source(s) COVID-19 VACCINE James 08/03/2020 12:00:00 AM EDT completed [facility] Vaccine Series Complete: YESThis Data wa s Submitted to [facility] Via [employer]. Medications No Information Insurance Providers Payer name Policy type / Coverage type Policy ID Covered republican ID Covered republican's relationship to acosta Policy [place] Plan Information Medicaid S [id number] S [id number] Managed Care - Community Plan [facility] P [id number] S [id number] Medicaid S [id number] S [id number] Managed Care - Community Plan [facility] P [id number] S [id number] Medicaid S [id number] S [id number] Managed Care - Community Plan [facility] P [id number] S [id number] Managed Care - Community Plan [facility] P [id number] S [id number] Medicaid S [id number] S [id number] Managed Care - Community Plan [facility] P [id number] S [id number] Medicaid S [id number] S [id number] Managed Care - [facility] Community Plan P [id number] S [id number] Managed Care - Community Plan [facility] P [id number] S [id number] Medicaid S [id number] S [id number] Managed Care - [facility] Community Plan P [id number] S [id number] [facility] [id number] SP [id number] UNHC COMMUNITY PLAN MCDHMO [id number] SP [id number] UNHC COMMUNITY PLAN MCDHMO [id number] SP [id number] UN COMMUNITY PLAN MCDO [id number] SP [id number] BCBS [place] HMO [id number] SP [id number] HMO BLUE [id number] SP [id number] MEDICAID [id number] SP [id number] MEDICAID [id number] SP [id number] SELF PAY [id number] SP [id number] MEDICAID [id number] SP [id number] SELF PAY [id number] SP [id number] [facility] [id number] Self [facility]) O [id number] S [id number] [facility] O UNAVAILABLE S UNAVAILA BLE BLUE [place] PLAN [id number] SP [id number] O BLUE [id number] SP [id number] UNHC COMMUNITY PLAN MCDO [id number] SP [id number] [facility]) O [id number] S [id number] [facility] [id number] SP [id number] [facility] COMMUNITY PLAN XIX [id number] 18 [id number] [facility] COMMUNITY PLAN [facility] [id number] SP [id number] MEDICAID [id number] SP [id number] MEDICAID [id number] S [id number] UNAVAILABLE UNAVAILA BLE SELF PAY ONLY [id number] SP [id number] UNHC COMMUNITY PLAN MCDO [id number] SP [id number] [facility] [id number] S [id number] [facility] MEDICAID [id number] S [id number] [facility]) O [id number] S [id number] Problems, Conditions, and Diagnoses Code Display Name Description Problem Type Effective Dates Data Source(s) F43.8 Other reactions to severe stress 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 01/20/2021 12:00:00 AM EDT [facility] ([facility]) F31.12 Bipolar disorder, current ep isode manic without psychotic features, moderate Bipolar I Disorder, Current or most recent episode man ic, Moderate Condition 01/20/2021 12:00:00 AM EDT [facility] ([facility]) F15.20 Other stimulant dependence, uncomplicate d Stimulant Use Disorder, Severe: Amphetamine-type substance Condition 08/23/2020 12:00:00 AM EDT [facility] ([facility]) F31.12 Bipolar disorder, current ep isode manic without psychotic features, moderate Bipolar I Disorder, Current or most recent episode man ic, Moderate Condition 08/23/2020 12:00:00 AM EDT [facility] ([facility]) F43.8 Other reactions to severe stress 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 08/23/2020 12:00:00 AM EDT [facility] ([facility]) Surgeries/Procedures Procedure Description Date Indications Data Source(s) Penitentiary - Case Management 01/20/2021 12:00: 00 AM EDT - 01/20/2021 12:00:00 AM EDT [facility] ([facility]) Penitentiary - Case Management 01/18/2021 12:00:00 AM EDT [facility] ([facility]) Crisis intervention service, per 15 minutes 12/19/2020 12:00:00 AM EDT - 12/19/2020 12:00:00 AM EDT [facility] ([facility]) Crisis intervention service, per 15 minutes 12/19/2020 12:00:00 AM EDT [facility] ([facility]) Psychiatric Diagnostic Evaluation (Non-Medical) 08/23/2020 12:00:00 AM EDT - 08/23/2020 12:00:00 AM EDT [facility] ([facility]) Psychiatric Diagnostic Evaluation (Non-Medical) 2020 12:00:00 AM EDT [facility] ([facility]) Extended Individual Psychotherapy - 45 min 04/19/2020 12:00:00 AM EST - 04/19/2020 12:00:00 AM EST [facility] ([facility]) Extended Individual Psychotherapy - 45 min 0 12:00:00 AM EST [facility] ([facility]) Results ID Date Data Source [id number] 04/07/2020 09:02:00 AM EST [facility] Name Value Range Interpretation Code Description Data Caridad rce(s) Supporting Document(s) SARS coronavirus 2 RNA [Presence] in Res piratory specimen by ROLANDA with probe detection [facility] This lab was ordered by [facility] a nd reported by [facility]. ID Date Data Source [id number] 12/23/2019 10:15:31 AM EDT [facility] In-House Blood TestsDate/Time Colle cted: December 23, 2019 8:20 AMTest Result Reference Range Normal ValueComments: taken from right ac, tolerated well.Alma Mario, December 23, 2019 10:16 AMAssessment & Plan Orders:[id number] Vst-Est Level I [CPT-29943] 53573 - Venipuncture [CPT- 71768] Name Value Range Interpretation Code Description Data Caridad rce(s) Supporting Document(s) ID Date Data Source [id number] 12/23/2019 08:20:00 AM EDT [facility] Name Value Range Interpretation Code Description Data Caridad rce(s) Supporting Document(s) HCT 46.4 % 42.0-52.0 N [facility] HGB 16.2 g/dL 13.5-17.5 N [facility] MCH 34.9 G/DL pg 32.0-36.5 N [facility] MCHC 33.0 PG % 27.0-33.0 N [facility] PLATELETS 600 10 10*3/mm3 150-450 H [facility] RBC 4.91 10 10*6/mm3 4.30-6.10 N [facility] RDW 14.6 % 11.5-14.5 H [facility] WBC TOTAL 12.1 4.0-10.0 H [facility] ID Date Data Source [id number] 12/23/2019 08:20:00 AM EDT [facility] Name Value Range Interpretation Code Description Data Caridad rce(s) Supporting Document(s) BG FASTING 90 mg/dL 70-100 N [facility] T4, FREE 1.25 ng/dL 0.76-1.46 N [facility] TSH 0.977 microintl units/mL 0.358-3.740 N [facility] Procedure Social History Code Duration Value Status Description Data Source(s ) Smoking 01/20/2021 12:00:00 AM EDT Unknown if ever smoked comp leted Unknown if ever smoked [facility] ([facility]) Smoking 12/19/2020 12:00:00 AM EDT Unknown if ever smoked comp leted Unknown if ever smoked [facility] ([facility]) Smoking 08/23/2020 12:00:00 AM EDT Unknown if ever smoked comp leted Unknown if ever smoked [facility] ([facility]) Smoking 04/19/2020 12:00:00 AM EST Unknown if ever smoked comp leted Unknown if ever smoked [facility] ([facility])
--- OUTSIDE RECORDS SUMMARY | 2021-02-13 22:42 | CCD ---
Author Author Jefe Still Organization Unknown Address [address] [place], [place] [address] [address] Phone Unavailable Care Team Providers Care Food Quality Technician Name Role Phone Capri Still PCP Allergies, Adverse Reactions, Alerts No Data in Section Problem List Concept Problem Description Status Start Date Created Date Resolv ed Date Snomed Code F31.12 Bipolar I Disorder, Current or most rece nt episode manic, Moderate Active 12/19/2020 F43.8 Other Specified Trauma- and Stressor-Related Disorder Acti ve 12/19/2020 Medications No Data in Section Social History Social History Element Description Concept Effective Date Smoking Status Unknown if ever smoked [id number] Immunizations No Data in Section Vital Signs No Data in Section Procedures Date Concept Id Description Targeted Site Concept Targeted Site Concept Type 12/19/2020 H2011 Crisis Intervention - Brief CPT Patient has no history of implantable de vices Encounters Encounter Start Date End Date Encounter Type Description Diagnosis Di agnosis Desc Location Author First Name Author Last Name Npid Taxonomy Cod e Taxonomy Desc Phone Number Location Addr1 Location Addr2 Location [facility] Location [facility] Location [facility] [id number] 12/19/2020 12/19/2020 H2011 Crisis Intervention - Brief F31.12 Bipolar disord, crnt episode manicw/o psych features, [facility] [id number] Accounts Collector [phone] [address] [place] [address] Plan of Treatment No Data in Section Lab Results No Data in Section Instructions No Data in Section Insurance Providers Insurance Id Policy Effective Date Policy Thru Date Company N zeynep [id number] 2020 [facility]
[2021-02-13 23:23] LABS: HEMATOCRIT 39.7 % (42.0-52.0); HEMOGLOBIN 13.7 g/dl (13.5-17.5); MEAN CORPUSCULAR HEMOGLOBIN 32.5 pg (27.0-33.0); MEAN CORPUSCULAR HGB CONC 34.5 g/dl (32.0-36.5); MEAN CORPUSCULAR VOLUME 94.1 fl (80.0-96.0); PLATELET COUNT, AUTOMATED 544 10^3/uL (150-450); RED BLOOD COUNT 4.22 10^6/uL (4.30-6.10); WHITE BLOOD COUNT 10.3 10^3/uL (4.0-10.0)
[2021-02-13 23:47] LABS: AMPHETAMINES LEVEL URINE NEGATIVE (NEGATIVE); BARBITURATES URINE NEGATIVE (NEGATIVE); BENZODIAZEPINES URINE NEGATIVE (NEGATIVE); CANNABINOIDS URINE POSITIVE (NEGATIVE); COCAINE METABOLITE URINE NEGATIVE (NEGATIVE); METHADONE URINE NEGATIVE (NEGATIVE); OPIATES URINE NEGATIVE (NEGATIVE); PHENCYCLIDINE URINE NEGATIVE (NEGATIVE)
[2021-02-13 23:56] LABS: ACETAMINOPHEN LEVEL < 2.0 UG/ML (10.0-30.0); ALBUMIN 3.5 GM/DL (3.2-5.2); ALT/SGPT 21 U/L (12-78); BILIRUBIN,DIRECT < 0.1 MG/DL (0.0-0.2); BILIRUBIN,TOTAL 0.3 MG/DL (0.2-1.0); BLOOD UREA NITROGEN 12 MG/DL (7-18); CALCIUM LEVEL 8.9 MG/DL (8.5-10.1); CARBON DIOXIDE LEVEL 29 MEQ/L (21-32); CHLORIDE LEVEL 107 MEQ/L (98-107); CREATININE FOR GFR 0.89 MG/DL (0.70-1.30); GLOMERULAR FILTRATION RATE > 60.0 (>60); GLUCOSE, FASTING 108 MG/DL (70-100); POTASSIUM SERUM 4.5 MEQ/L (3.5-5.1); SALICYLATE LEVEL 1.8 MG/DL (5.0-30.0); SODIUM LEVEL 139 MEQ/L (136-145); TOTAL PROTEIN 7.1 GM/DL (6.4-8.2)
[2021-02-13 23:57] LABS: ETHYL ALCOHOL (ETHANOL) < 0.003 % (0.000-0.010)
--- OUTSIDE RECORDS SUMMARY | 2021-02-14 05:04 | CCD ---
Author Author [facility] Organization [facility] Address Unknown Phone Unavailable Support Name Relationship Address Phone Nicki Alaniz Next Of Kin Unknown Unavailable FISH, EMILY Next Of Kin [address] [place] [address] U Next Of Kin Unknown Unavailable [place], [place] [address] Allison Saba MD Next Of Kin [address] [place] [address] COUSINS, ANGIE Next Of Kin [address] [place] [address] NICKI ALANIZ Next Of Kin [address] [place] [address] DANNIELLE ALANIZ Next Of Kin [address] [place] [address] DANNIELLE ALANIZ Next Of Kin [address] [place] [address] Deisy Valenzuela Next Of Kin [address] [place] [address] MYKEL WE[place] [address] Odette AGUILAR Next Of Kin [address] [place] [address] [facility] Next [place] [address] Unavailable [employer] [place] [address] Unavailable DEALING, LEYDI Next Of Kin [address] [place] [address] AVERY ZAFAR Next Of Kin [address] [place] [address] OMID MONTGOMERY Next Of Kin [address] [facility] [address] [place] [address] SARAHSTONEDY Next Of Kin [address] [facility] [address] [place] [address] RONALDYAHIR MIRELES Next Of Kin [address] [facility] [address] [place] [address] Unavailable Sarah Nieto MD Next Of Kin [address] [place], [place] [id number] León BARGER, Lashae Next Of Kin [address] [place] [address] [address] [place] [address] [place] [address] DENITA Traore, Lashae Next Of Kin [address] [place] [address] Jessica FOY-C, Haydee Next Of Kin [address] [place] [address] "" Next Of Kin [address] [place] [address] COUSINS, ALANAE Next Of Kin [address] [place] [address] CHANCEETELVINA JENSEN Next Of Kin [address] [place] [address] LEON LY Next Of [facility] [address] [facility] [address] [place] [address] PAUL MARTINEZ Next Of Kin [address] [place] [address] COUSINS, N[place] [address] UE Next Of Kin Unknown Unavailable ADAM GALLARDO Next Of Kin [address] [facility] [address] [place] [address] Care Team Providers Care Data Sme Name Role Phone HILLARY ANN RPA-C Unavailable [...] Unavailable ANN, HILLARY KEN RPA-C Unavailable Unavailable NAN, HILLARY KEN RPA-C Unavailable Unavailable ANN, HILLARY [...] ALLISON MIRANDA Unavailable Unavailable Radha Becerra Unavailable AnselmoRamona Unavailable MattCapri Unavailable Re-disclosure Warning The records [...] is protected by Article 27-F of the [facility] Public Health law. If you continue you may have access to information: Regarding HIV / AIDS; Provided by facilities licensed or operated by the [facility] Office of Mental Health; or Provided by the [facility] Office for People With Developmental Disabilities. If such information is present, then the following [facility] mandated warning applies: This information [...] law may result in a fine or senior care sentence or both. A general authorization for the release of medical or other information is NOT sufficient authorization for further disc losure. Encounters Encounter Providers Location Date Indications Data Source(s ) Attender: Capri Gutierrez 01/20/2021 12:00:00 A M EDT [facility] ([facility]) Skilled Nursing - Case Management Attender: Capri Gutierrez [facility] Skilled Nursing 01/18/2021 12:30:00 PM EDT - 01/18/2021 12:30:00 PM EDT [facility] ([facility]) Crisis Intervention - Brief Attender: Capri Gutierrez [facility] 12/19/2020 08:45:00 AM EDT - 12/19/2020 08:45:00 AM EDT [facility] ([facility]) Attender: Capri Gutierrez 12/19/2020 12:00:00 A M EDT [facility] ([facility]) Psychiatric Diagnostic Evaluation (Non-Medical) Attender: Ozzie Becerra [facility] Skilled Nursing 08/23/2020 09:45:00 AM EDT - 08/23/2020 09:45:00 AM EDT [facility] ([facility]) Attender: Radha Becerra 08/23/2020 12:00:00 AM E DT [facility] ([facility]) Extended Individual Psychotherapy - 45 min Attender: Kathy Alaniz [facility] 04/19/2020 08:00:00 AM EST - 04/19/2020 08:00:00 AM EST [facility] ([facility]) Attender: Ramona Alaniz 04/19/2020 12:00:00 AM EST [facility] ([facility]) Outpatient Attender: KEN BARR 01/12/2020 05:00:14 PM EDT [facility] Outpatient Attender: KEN ANN RPA-Marychuy BARR 01/12/2020 05:00:02 PM EDT [facility] Outpatient Attender: KEN ANN RPA-C MOMO 01/12/2020 09:48:02 AM EDT [facility] Outpatient Attender: KEN DEANC MOMO 12/31/2019 03:49:01 PM EDT [facility] Outpatient Attender: KEN BARR 12/23/2019 11:14:00 AM EDT [facility] Outpatient Attender: ALLISON SABA MD 12/22/2019 11:31:01 A M EDT [facility] Immunizations Vaccine Date Status Description Data Source(s) COVID-19 VACCINE James 08/03/2020 12:00:00 AM EDT completed [facility] Vaccine Series Complete: YESThis Data wa s Submitted to [facility] [employer]. Medications No Information Insurance Providers Payer name Policy type / Coverage type Policy ID Covered republican ID Covered republican's relationship to acosta Policy Acosat Plan Information Medicaid S [id number] S [id number] Managed Care - Community Plan [facility] P [id number] S [id number] Medicaid S [id number] S [id number] Managed Care - Community Plan [facility] P [id number] S [id number] Medicaid S [id number] S [id number] Managed Care - Community Plan [facility] P [id number] S [id number] Managed Care - Community Plan [facility] P [id number] S [id number] Medicaid S [id number] S [id number] Managed Care - Community Plan [facility] P [id number] S [id number] Medicaid S [id number] S [id number] Managed Care - [facility] Community Plan P [id number] S [id number] Managed Care - Community Plan [facility] P [id number] S [id number] Medicaid S [id number] S [id number] Managed Care - [facility] Community Plan P [id number] S [id number] [facility] [id number] SP [id number] UNHC COMMUNITY PLAN MCDHMO [id number] SP [id number] UNHC COMMUNITY PLAN MCDHMO [id number] SP [id number] UN COMMUNITY PLAN MCDO [id number] SP [id number] BCBS [place] HMO [id number] SP [id number] HMO BLUE [id number] SP [id number] MEDICAID [id number] SP [id number] MEDICAID [id number] SP [id number] SELF PAY [id number] SP [id number] MEDICAID [id number] SP [id number] SELF PAY [id number] SP [id number] [facility] [id number] Self [facility]) O [id number] S [id number] [facility] O UNAVAILABLE S UNAVAILA BLE BLUE [place] PLAN [id number] SP [id number] O BLUE [id number] SP [id number] UNHC COMMUNITY PLAN MCDO [id number] SP [id number] [facility]) O [id number] S [id number] [facility] MARLI [id number] SP [id number] [facility] COMMUNITY PLAN XIX [id number] 18 [id number] [facility] COMMUNITY PLAN [facility] [id number] SP [id number] MEDICAID [id number] SP [id number] MEDICAID [id number] S [id number] O UNAVAILABLE UNAVAILA BLE SELF PAY ONLY [id number] SP [id number] UNHC COMMUNITY PLAN MCDO [id number] SP [id number] [facility] [id number] S [id number] [facility] MEDICAID [id number] S [id number] [facility]) O [id number] S [id number] Problems, Conditions, and Diagnoses Code Display Name Description Problem Type Effective Dates Data Source(s) F43.8 Other reactions to severe stress 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 01/20/2021 12:00:00 AM EDT [facility] ([facility]) F31.12 Bipolar disorder, current ep isode manic without psychotic features, moderate Bipolar I Disorder, Current or most recent episode man ic, Moderate Condition 01/20/2021 12:00:00 AM EDT [facility] ([facility]) F15.20 Other stimulant dependence, uncomplicate d Stimulant Use Disorder, Severe: Amphetamine-type substance Condition 08/23/2020 12:00:00 AM EDT [facility] ([facility]) F31.12 Bipolar disorder, current ep isode manic without psychotic features, moderate Bipolar I Disorder, Current or most recent episode man ic, Moderate Condition 08/23/2020 12:00:00 AM EDT [facility] ([facility]) F43.8 Other reactions to severe stress 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 08/23/2020 12:00:00 AM EDT [facility] ([facility]) Surgeries/Procedures Procedure Description Date Indications Data Source(s) Skilled Nursing - Case Management 01/20/2021 12:00: 00 AM EDT - 01/20/2021 12:00:00 AM EDT [facility] ([facility]) Skilled Nursing - Case Management 01/18/2021 12:00:00 AM EDT [facility] ([facility]) Crisis intervention service, per 15 minutes 12/19/2020 12:00:00 AM EDT - 12/19/2020 12:00:00 AM EDT [facility] ([facility]) Crisis intervention service, per 15 minutes 12/19/2020 12:00:00 AM EDT [facility] ([facility]) Psychiatric Diagnostic Evaluation (Non-Medical) 08/23/2020 12:00:00 AM EDT - 08/23/2020 12:00:00 AM EDT [facility] ([facility]) Psychiatric Diagnostic Evaluation (Non-Medical) 2020 12:00:00 AM EDT [facility] ([facility]) Extended Individual Psychotherapy - 45 min 04/19/2020 12:00:00 AM EST - 04/19/2020 12:00:00 AM EST [facility] Extended Individual Psychotherapy - 45 min 0 12:00:00 AM EST [facility] ([facility]) Results ID Date Data Source [id number] 04/07/2020 09:02:00 AM EST [facility] Name Value Range Interpretation Code Description Data Caridad rce(s) Supporting Document(s) SARS coronavirus 2 RNA [Presence] in Res piratory specimen by ROLANDA with probe detection [facility] This lab was ordered by [facility] a nd reported by [facility]. ID Date Data Source [id number] 12/23/2019 10:15:31 AM EDT [facility] Labs In-House Blood TestsDate/Time Colle cted: December 23, 2019 8:20 AMTest Result Reference Range Normal ValueComments: taken from right ac, tolerated well.Alma Mario, December 23, 2019 10:16 AMAssessment & Plan Orders:[id number] Vst-Est Level I [CPT-56779] 30191 - Venipuncture [CPT- 76088] Name Value Range Interpretation Code Description Data Caridad rce(s) Supporting Document(s) ID Date Data Source [id number] 12/23/2019 08:20:00 AM EDT [facility] Name Value Range Interpretation Code Description Data Caridad rce(s) Supporting Document(s) HCT 46.4 % 42.0-52.0 N [facility] HGB 16.2 g/dL 13.5-17.5 N [facility] MCH 34.9 G/DL pg 32.0-36.5 N [facility] MCHC 33.0 PG % 27.0-33.0 N [facility] PLATELETS 600 10 10*3/mm3 150-450 H [facility] RBC 4.91 10 10*6/mm3 4.30-6.10 N [facility] RDW 14.6 % 11.5-14.5 H [facility] WBC TOTAL 12.1 4.0-10.0 H [facility] ID Date Data Source [id number] 12/23/2019 08:20:00 AM EDT [facility] Name Value Range Interpretation Code Description Data Caridad rce(s) Supporting Document(s) BG FASTING 90 mg/dL 70-100 N [facility] T4, FREE 1.25 ng/dL 0.76-1.46 N [facility] TSH 0.977 microintl units/mL 0.358-3.[address] [facility] Procedure Social History Code Duration Value Status Description Data Source(s ) Smoking 01/20/2021 12:00:00 AM EDT Unknown if ever smoked comp leted Unknown if ever smoked [facility] ([facility]) Smoking 12/19/2020 12:00:00 AM EDT Unknown if ever smoked comp leted Unknown if ever smoked [facility] ([facility]) Smoking 08/23/2020 12:00:00 AM EDT Unknown if ever smoked comp leted Unknown if ever smoked [facility] ([facility]) Smoking 04/19/2020 12:00:00 AM EST Unknown if ever smoked comp leted Unknown if ever smoked [facility] ([facility])
--- NOTE | 2021-02-14 08:09 | MHIPNPDOC ---
[facility] Progress Note Progress Note DATE OF SERVICE: 02/14/21 Patient present by PSA, meets criteria for involuntary admission, reports suicidal ideation with multiple plans, he is homeless. See PSA report for details. Vital Signs Vital Signs Date Time Temp Pulse Resp B/P (MAP) Pulse Ox O2 Delivery O2 Flow Rate FiO2 02/14/21 06:20 96.8 57 18 118/58 (78) 100 Room Air Laboratory Data 24H Labs Laboratory Tests 2 02/13/21 22:56: Nucleated Red Blood Cells % (auto) 0.0, Anion Gap 3L, Glomerular Filtration Rate > 60.0, Calcium Level 8.9, Total Bilirubin 0.3, Direct Bilirubin < 0.1, Aspartate Amino Transf (AST/SGOT) 15, Alanine Aminotransferase (ALT/SGPT) 21, Alkaline Phosphatase 112, Total Protein 7.1, Albumin 3.5, Albumin/Globulin Ratio 1.0, Thyroid Stimulating Hormone (TSH) 1.810, Salicylates Level 1.8L, Urine Opiates Screen NEGATIVE, Urine Methadone Screen NEGATIVE, Acetaminophen Level < 2.0L, Urine Barbiturates Screen NEGATIVE, Urine Phencyclidine Screen NEGATIVE, Urine Amphetamines Screen NEGATIVE, Urine Benzodiazepines Screen NEGATIVE, Urine Cocaine Metabolite Screen NEGATIVE, Urine Cannabinoids Screen POSITIVEH, Ethyl Alcohol Level < 0.003 CBC/BMP Laboratory Tests 02/13/21 22:56 Allergies Coded Allergies: No Known Allergies (Verified , 04/27/18) SUZI MARADIAGA MD Feb 14, 2021 08:09
[2021-02-14 10:58] LABS: RSV AMPLIFICATION NEGATIVE (NEGATIVE)
[2021-02-14] MEDS ORDERED: HOME MED LIST COMPLETE! XX SCH (11:20)
[2021-02-14] MEDS ORDERED: traZODone 50 MG TAB PO PRN (16:50)
[2021-02-14] MEDS ORDERED: ACETAMINOPHEN TAB 650MG DOSE (2X325MG) PO PRN (16:50)
[2021-02-14] MEDS ORDERED: MOM 30ML SUSPENSION UDC PO PRN (16:50)
[2021-02-14] MEDS ORDERED: MAALOX 30 ML SUSP *UDC PO PRN (16:50)
--- OUTSIDE RECORDS SUMMARY | 2021-02-14 17:14 | CCD ---
Author Author [facility] Organization [facility] Address Unknown Phone Unavailable Support Name Relationship Address Phone Nicki Alaniz Next Of Kin Unknown Unavailable FISH, EMILY Next Of Kin [address] [place] [address] U Next Of Kin Unknown Unavailable FISH, [place] [address] Allison Saba MD Next Of Kin [address] [place] [address] COUSINS, ANGIE Next Of Kin [address] [place] [address] NICIK ALANIZ Next Of Kin [address] [place] [address] DANNIELLE ALANIZ Next Of Kin [address] [place] [address] DANNIELLE ALANIZ Next Of Kin [address] [place] [address] Deisy Valenzuela Next Of Kin [address] [place] [address] MYKEL [place] [address] Odette AGUILAR Next Of Kin [address] [place] [address] [employer] Next [place] [address] Unavailable [employer] [place] [address] Unavailable DEALING, LEYDI Next Of Kin [address] [place] [address] AVERY ZAFAR Next Of Kin [address] [place] [address] OMID MONTGOMERY Next Of Kin [address] [facility] [address] [place] [address] SARAHSTONEDY Next Of Kin [address] [facility] [address] [place] [address] RONALDYAHIR MIRELES Next Of Kin [address] [facility] 1 [place] [address] Unavailable Sarah Nieto MD Next Of Kin [address] [place], [place] [id number] León BARGER, Lashae Next Of Kin [address] [place] [address] [address] [place] [address] [place] [address] DENITA Traore, Lashae Next Of Kin [address] [place] [address] Jessica FOY-C, Haydee Next Of Kin [address] [place] [address] "" Next Of Kin [address] [place] [address] COUSINS, ALANAE Next Of Kin [address] [place] [address] CHANCEETELVINA JENSEN Next Of Kin [address] [place] [address] LEON LY Next Of Kin [address] [place] [address] PAUL MARTINEZ Next Of Kin [address] [place] [address] COUSINS, N[place] [address] UE Next Of Kin Unknown Unavailable ADAM GALLARDO Next Of Kin [address] [facility] [address] [place] [address] Care Team Providers Care Supervisor Shearing Name Role Phone HILLARY ANN RPA-C Unavailable [...] HILLARY KEN RPA-C Unavailable Unavailable ANN, HILLARY KNE RPA-C Unavailable Unavailable ANN, HILLARY KEN RPA-C [...] Unavailable Unavailable Dontae SABA MD Unavailable Unavailable Dnotae SABA MD Unavailable Unavailable Dontae SABA MD [...] T ALLISON MIRANDA Unavailable Unavailable BROOKS, T ALLISNO MIRANDA Unavailable Unavailable BROOKS, T ALLISON MIRANDA [...] is protected by Article 27-F of the [facility] Public Health law. If you continue you may have access to information: Regarding HIV / AIDS; Provided by facilities licensed or operated by the [facility] Office of Mental Health; or Provided by the [facility] Office for People With Developmental Disabilities. If such information is present, then the following [facility] mandated warning applies: This information has [...] law may result in a fine or shelter sentence or both. A general authorization for the release of medical or other information is NOT sufficient authorization for further disc losure. Encounters Encounter Providers Location Date Indications Data Source(s ) Attender: Capri Gutierrez 01/20/2021 12:00:00 A M EDT [facility] ([facility]) [facility] - Case Management Attender: Capri Gutierrez [facility] 01/18/2021 12:30:00 PM EDT - 01/18/2021 12:30:00 PM EDT [facility] ([facility]) Crisis Intervention - Brief Attender: Capri Gutierrez [facility] 12/19/2020 08:45:00 AM EDT - 12/19/2020 08:45:00 AM EDT [facility] ([facility]) Attender: Capri Gutierrez 12/19/2020 12:00:00 A M EDT [facility] ([facility]) Psychiatric Diagnostic Evaluation (Non-Medical) Attender: Ozzie Becerra [facility]fp 08/23/2020 09:45:00 AM EDT - 08/23/2020 09:45:00 AM EDT [facility] ([facility]) Attender: Radha Becerra 08/23/2020 12:00:00 AM E DT [facility] ([facility]) Extended Individual Psychotherapy - 45 min Attender: Kathy Alaniz [facility] 04/19/2020 08:00:00 AM EST - 04/19/2020 08:00:00 AM EST [facility] ([facility]) Attender: Ramona Alaniz 04/19/2020 12:00:00 AM EST [facility] ([facility]) Outpatient Attender: KEN BARR 01/12/2020 05:00:14 PM EDT [facility] Outpatient Attender: KEN NAN RPA-Marychuy BARR 01/12/2020 05:00:02 PM EDT [facility] Outpatient Attender: KEN ANN RPA-C MOMO 01/12/2020 09:48:02 AM EDT [facility] Outpatient Attender: KEN DEANC MOMO 12/31/2019 03:49:01 PM EDT [facility] Outpatient Attender: KEN BARR 12/23/2019 11:14:00 AM EDT [facility] Outpatient Attender: ALLISON SABA MD 12/22/2019 11:31:01 A M EDT [facility] Immunizations Vaccine Date Status Description Data Source(s) COVID-19 VACCINE James 08/03/2020 12:00:00 AM EDT completed [facility] Vaccine Series Complete: YESThis Data wa s Submitted to [facility] Via [employer]. Medications No Information Insurance Providers Payer name Policy type / Coverage type Policy ID Covered alliance party ID Covered alliance party's relationship to acosta Policy [place] Plan Information Medicaid S [id number] S [id number] Managed Care - Community Plan [facility] P [id number] S [id number] Medicaid S [id number] S [id number] Managed Care - Community Plan [facility] P [id number] S [id number] Medicaid S [id number] S [id number] Managed Care - Community Plan [facility] P [id number] S [id number] Managed Care - Community Plan [facility] P [id number] S [id number] Medicaid S [id number] S [id number] Managed Care - Community Plan [facility] P [id number] S [id number] Medicaid S [id number] S [id number] Managed Care - [facility] Community Plan P [id number] S [id number] Managed Care - Community Plan [facility] P [id number] S [id number] Medicaid S [id number] S [id number] Managed Care - [facility] Community Plan P [id number] S [id number] [facility]) O [id number] S [id number] [facility] [id number] SP [id number] [facility] COMMUNITY PLAN [facility] [id number] SP [id number] [facility] COMMUN[facility] [id number] SP [id number] [facility] COMMUNITY PLAN [facility] [id number] SP [id number] BCBS MARLI HMO [id number] SP [id number] HMO BLUE [id number] SP [id number] MEDICAID [id number] SP [id number] MEDICAID [id number] SP [id number] SELF PAY [id number] SP [id number] MEDICAID [id number] SP [id number] SELF PAY [id number] SP [id number] [facility] [id number] Self [facility]) O [id number] S [id number] [facility] O UNAVAILABLE S UNAVAILA BLE BLUE [place] PLAN [id number] SP [id number] O BLUE [id number] SP [id number] SELF PAY ONLY [id number] SP [id number] [facility] COMMUNITY PLAN [facility] [id number] SP [id number] [facility]) O [id number] S [id number] [facility] [id number] SP [id number] [facility] COMMUNITY PLAN XIX [id number] 18 [id number] [facility] [id number] SP [id number] MEDICAID [id number] SP [id number] MEDICAID [id number] S [id number] O UNAVAILABLE UNAVAILA BLE SELF PAY ONLY [id number] SP [id number] [facility] COMMUNITY PLAN [facility] [id number] SP [id number] [facility] [id number] S [id number] [facility] MEDICAID [id number] S [id number] Problems, Conditions, and Diagnoses Code Display Name Description Problem Type Effective Dates Data Source(s) F43.8 Other reactions to severe stress 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 01/20/2021 12:00:00 AM EDT [facility] ([facility]) F31.12 Bipolar disorder, current ep isode manic without psychotic features, moderate Bipolar I Disorder, Current or most recent episode man ic, Moderate Condition 01/20/2021 12:00:00 AM EDT [facility] ([facility]) F15.20 Other stimulant dependence, uncomplicate d Stimulant Use Disorder, Severe: Amphetamine-type substance Condition 08/23/2020 12:00:00 AM EDT [facility] ([facility]) F31.12 Bipolar disorder, current ep isode manic without psychotic features, moderate Bipolar I Disorder, Current or most recent episode man ic, Moderate Condition 08/23/2020 12:00:00 AM EDT [facility] ([facility]) F43.8 Other reactions to severe stress 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 08/23/2020 12:00:00 AM EDT [facility] ([facility]) Surgeries/Procedures Procedure Description Date Indications Data Source(s) [facility] - Case Management 01/20/2021 12:00: 00 AM EDT - 01/20/2021 12:00:00 AM EDT [facility] ([facility]) Mcfp - Case Management 01/18/2021 12:00:00 AM EDT [facility] ([facility]) Crisis intervention service, per 15 minutes 12/19/2020 12:00:00 AM EDT - 12/19/2020 12:00:00 AM EDT [facility] ([facility]) Crisis intervention service, per 15 minutes 12/19/2020 12:00:00 AM EDT [facility] ([facility]) Psychiatric Diagnostic Evaluation (Non-Medical) 08/23/2020 12:00:00 AM EDT - 08/23/2020 12:00:00 AM EDT [facility] ([facility]) Psychiatric Diagnostic Evaluation (Non-Medical) 2020 12:00:00 AM EDT [facility] ([facility]) Extended Individual Psychotherapy - 45 min 04/19/2020 12:00:00 AM EST - 04/19/2020 12:00:00 AM EST [facility] ([facility]) Extended Individual Psychotherapy - 45 min 0 12:00:00 AM EST [facility] ([facility]) Results ID Date Data Source [id number] 04/07/2020 09:02:00 AM EST [facility] Name Value Range Interpretation Code Description Data Caridad rce(s) Supporting Document(s) SARS coronavirus 2 RNA [Presence] in Res piratory specimen by ROLANDA with probe detection [facility] This lab was ordered by [facility] a nd reported by [facility]. ID Date Data Source [id number] 12/23/2019 10:15:31 AM EDT [facility] Labs In-House Blood TestsDate/Time Colle cted: December 23, 2019 8:20 AMTest Result Reference Range Normal ValueComments: taken from right ac, tolerated well.Alma Martin, December 23, 2019 10:16 AMAssessment & Plan Orders:[id number] Vst-Est Level I [CPT-09124] 07005 - Venipuncture [CPT- 23115] Name Value Range Interpretation Code Description Data Caridad rce(s) Supporting Document(s) ID Date Data Source [id number] 12/23/2019 08:20:00 AM EDT [facility] Name Value Range Interpretation Code Description Data Caridad rce(s) Supporting Document(s) HCT 46.4 % 42.0-52.0 N [facility] HGB 16.2 g/dL 13.5-17.5 N [facility] MCH 34.9 G/DL pg 32.0-36.5 N [facility] inés Health MCHC 33.0 PG % 27.0-33.0 N [facility] PLATELETS 600 10 10*3/mm3 150-450 H [facility] RBC 4.91 10 10*6/mm3 4.30-6.10 N [facility] RDW 14.6 % 11.5-14.5 H [facility] WBC TOTAL 12.1 4.0-10.0 H [facility] ID Date Data Source [id number] 12/23/2019 08:20:00 AM EDT [facility] Name Value Range Interpretation Code Description Data Caridad rce(s) Supporting Document(s) BG FASTING 90 mg/dL 70-100 N [facility] Famil y Health T4, FREE 1.25 ng/dL 0.76-1.46 N [facility] TSH 0.977 microintl units/mL 0.358-3.740 N [facility] Procedure Social History Code Duration Value Status Description Data Source(s ) Smoking 01/20/2021 12:00:00 AM EDT Unknown if ever smoked comp leted Unknown if ever smoked [facility] ([facility]) Smoking 12/19/2020 12:00:00 AM EDT Unknown if ever smoked comp leted Unknown if ever smoked [facility] ([facility]) Smoking 08/23/2020 12:00:00 AM EDT Unknown if ever smoked comp leted Unknown if ever smoked [facility] ([facility]) Smoking 04/19/2020 12:00:00 AM EST Unknown if ever smoked comp leted Unknown if ever smoked [facility] ([facility])
[2021-02-14 21:50] VITALS: BP 150/86
[2021-02-15 06:40] VITALS: BP 142/68
[2021-02-15] MEDS ORDERED: INFLUENZA QUADRIVALENT PF VACCINE 0.5ML SYRINGE IM ONE (09:00)
[2021-02-15] MEDS: FLUoxetine 20 MG CAP PO SCH (11:26)
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
[2021-02-15 15:15] LABS: HEMOGLOBIN A1c 5.1 %
[2021-02-15 15:19] LABS: CHOLESTEROL RISK RATIO 4.615 (<5)
[2021-02-15 17:48] VITALS: BP 125/61
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
[2021-02-15] MEDS: OLANZapine 10 MG TAB PO SCH (22:00)
[2021-02-16 06:10] VITALS: BP 124/59
[2021-02-16] MEDS: FLUoxetine 20 MG CAP PO SCH (09:09)
--- NOTE | 2021-02-16 16:22 | MHIPNPDOC ---
[facility] Progress Note Progress Note DATE OF SERVICE: 02/16/21 HISTORY: Patient is a 40 -year-old single , unemployed , undomiciled , male, who has a history of depression, psychosis, and suicidal ideation. Presenting for suicidal ideation with plans to cut his wrists or jump from a bridge. Reports that he was recently released from residential and was unable to refill his prescriptions afterward. This led to a decompensation in symptoms and a worsening of his suicidal ideation. He reports that sometime in the past he was told that he had diagnosis of borderline personal disorder as well as bipolar disorder. Currently he endorses hopelessness, and states that although he does not feel suicidal at this point in time he believes that is because he knows in the hospital he would not be allowed to hurt himself. VITAL SIGNS: See below. NEW TEST RESULTS: None CURRENT MEDICATIONS: See below. RESPONSE TO MEDICATIONS: Reports no side effects or adverse reactions. Cannot quantify effectiveness as he is very drowsy at time of interview. ILLNESS EDUCATION: Attempted but patient requests to return to sleep MENTAL STATUS EXAMINATION: Patient is a 40 -year-old single , unemployed , undomiciled , male, who has a history of depression, psychosis, and suicidal ideation. Presenting for suicidal ideation with plans to cut his wrists or jump from a bridge. Patient is disheveled unkempt and found sleeping Speech: Slow rate, low tone and volume, minimal responses Language skills are intact Thought processes including: Coherent Thought content: Reports depression and anxiety. Denies suicidal/homicidal ideation, planning or intent. Abstract reasoning, and computation: fair Description of associations: d auditory hallucinations Description of abnormal or psychotic thoughts: denies, none observed. Judgment: fair Insight: fair Orientation: alert and oriented to person, place, time and situation Recent and remote memory: intact Attention span and concentration: good Language: Fair Fund of knowledge: Below average Mood: Neutral mood Affect: Constricted/flat DIAGNOSES: Schizoaffective disorder, bipolar type, most recent episode depressed Nicotine use disorder Cannabis use disorder ASSESSMENT: Patient found asleep. When asked about depression and anxiety he states stated that he continues to have these but was nonconversant had minimal responses in his interview. He denies suicidal ideations at this time. He made no eye contact in the interview and requested to return to sleep. Patient appears to have some avoidant personality symptoms. MANAGEMENT PLAN: Continue all medications and therapies as ordered we will discharge when stable TIME SPENT: 25] minutes. Vital Signs Vital Signs Date Time Temp Pulse Resp B/P (MAP) Pulse Ox O2 Delivery O2 Flow Rate FiO2 02/16/21 06:10 97.9 56 16 124/59 (80) 100 Room Air Current Medications Current Medications Medications (Trade) Dose Ordered Sig/An Route PRN Reason Start Time Stop Time Status Last Admin Dose Admin Acetaminophen (Tylenol Tab) 650 mg Q6HP PRN PO HEADACHE or MILD DISCOMFORT 02/14/21 16:50 Al Hydrox/Mg Hydrox/Simethicone (Mylanta) 30 ml Q4HP PRN PO HEARTBURN/INDIGESTION 02/14/21 16:50 Fluoxetine HCl (PROzac) 20 mg DAILY PO 02/15/21 09:00 02/16/21 09:09 Home Med (Home Med List Complete!) ASDIRECTED XX 02/14/21 11:20 02/14/21 11:22 DC Magnesium Hydroxide (Milk Of Magnesia) 30 ml DAILYPRN PRN PO CONSTIPATION 02/14/21 16:50 Olanzapine (ZyPREXA) 10 mg QHS PO 02/15/21 21:00 02/15/21 22:00 Trazodone HCl (Desyrel) 50 mg QHSP PRN PO INSOMNIA 02/14/21 16:50 Allergies Coded Allergies: No Known Allergies (Verified , 04/27/18) HARJEET ANDERSEN NP Feb 16, 2021 16:22
[2021-02-16 17:58] VITALS: BP 154/92
[2021-02-16] MEDS: OLANZapine 10 MG TAB PO SCH (21:57)
[2021-02-17 06:44] VITALS: BP 135/75
[2021-02-17] MEDS: FLUoxetine 20 MG CAP PO SCH (08:05)
[2021-02-17] MEDS: hydrOXYzine 50 MG TAB PO PRN (12:54)
--- NOTE | 2021-02-17 15:54 | MHIPNPDOC ---
[facility] Progress Note Progress Note DATE OF SERVICE: 02/17/21 HISTORY: Patient is a 40 -year-old single , unemployed , undomiciled , male, who has a history of depression, psychosis, and suicidal ideation. Presenting for suicidal ideation with plans to cut his wrists or jump from a bridge. Reports that he was recently released from snf and was unable to refill his prescriptions afterward. This led to a decompensation in symptoms and a worsening of his suicidal ideation. He reports that sometime in the past he was told that he had diagnosis of borderline personal disorder as well as bipolar disorder. Currently he endorses hopelessness, and states that although he does not feel suicidal at this point in time he believes that is because he knows in the hospital he would not be allowed to hurt himself. VITAL SIGNS: See below. NEW TEST RESULTS: None CURRENT MEDICATIONS: See below. RESPONSE TO MEDICATIONS: Reports no side effects or adverse reactions. Cannot quantify effectiveness as he is very drowsy at time of interview. ILLNESS EDUCATION: Attempted but patient requests to return to sleep MENTAL STATUS EXAMINATION: Patient is a 40 -year-old single , unemployed , undomiciled , male, who has a history of depression, psychosis, and suicidal ideation. Presenting for suicidal ideation with plans to cut his wrists or jump from a bridge. Patient is disheveled unkempt and found sleeping Speech: Slow rate, low tone and volume, minimal responses Language skills are intact Thought processes including: Coherent Thought content: Reports depression and anxiety. Denies suicidal/homicidal ideation, planning or intent. Abstract reasoning, and computation: fair Description of associations: d auditory hallucinations Description of abnormal or psychotic thoughts: denies, none observed. Judgment: fair Insight: fair Orientation: alert and oriented to person, place, time and situation Recent and remote memory: intact Attention span and concentration: good Language: Fair Fund of knowledge: Below average Mood: Neutral mood Affect: Constricted/flat DIAGNOSES: Schizoaffective disorder, bipolar type, most recent episode depressed Nicotine use disorder Cannabis use disorder ASSESSMENT: Patient reporting decreased depression and anxiety but remains moderate. States that he was feeling suicidal because when he was released from snf he was trying to get housing from [facility] but was unable to fulfill paperwork a nd or other requirements. "They wanted me to do things that I did not understand and or I would have appointments on the day of, or I felt like they were giving be requirements that I did not understand. " It seems that the patient was frustrated with DSS' process, numerous paperwork or felt he was given poor direction. Ultimately he became very frustrated overwhelmed depressed anxious and suicidal. States that he is being told that he has to work, complains of back pain and his mental illness preventing him from obtaining employment. Patient states that he is not stable for discharge at this time MANAGEMENT PLAN: Continue all medications and therapies as ordered we will discharge when stable TIME SPENT: 25 minutes. Vital Signs Vital Signs Date Time Temp Pulse Resp B/P (MAP) Pulse Ox O2 Delivery O2 Flow Rate FiO2 02/17/21 06:44 97.5 55 18 135/75 (95) 95 Room Air Current Medications Current Medications Medications (Trade) Dose Ordered Sig/An Route PRN Reason Start Time Stop Time Status Last Admin Dose Admin Acetaminophen (Tylenol Tab) 650 mg Q6HP PRN PO HEADACHE or MILD DISCOMFORT 02/14/21 16:50 Al Hydrox/Mg Hydrox/Simethicone (Mylanta) 30 ml Q4HP PRN PO HEARTBURN/INDIGESTION 02/14/21 16:50 Fluoxetine HCl (PROzac) 20 mg DAILY PO 02/15/21 09:00 02/17/21 08:05 Home Med (Home Med List Complete!) ASDIRECTED XX 02/14/21 11:20 02/14/21 11:22 DC Hydroxyzine HCl (Atarax) 50 mg Q6HP PRN PO ANXIETY/AGITATION 02/17/21 12:45 02/17/21 12:54 Magnesium Hydroxide (Milk Of Magnesia) 30 ml DAILYPRN PRN PO CONSTIPATION 02/14/21 16:50 Olanzapine (ZyPREXA) 10 mg QHS PO 02/15/21 21:00 02/16/21 21:57 Trazodone HCl (Desyrel) 50 mg QHSP PRN PO INSOMNIA 02/14/21 16:50 Allergies Coded Allergies: No Known Allergies (Verified , 04/27/18) HARJEET ANDERSEN NP Feb 17, 2021 15:48
[2021-02-17 19:00] VITALS: BP 124/69
[2021-02-17] MEDS: OLANZapine 10 MG TAB PO SCH (20:20)
[2021-02-18 07:32] VITALS: BP 113/61
[2021-02-18] MEDS: FLUoxetine 20 MG CAP PO SCH (08:09)
--- NOTE | 2021-02-18 12:41 | MHIPNPDOC ---
[facility] Progress Note Progress Note DATE OF SERVICE: 02/18/21 HISTORY: Per Dr Vargas's progress note 02/17: "Patient is a 40 -year-old single , unemployed , undomiciled , male, who has a history of depression, psychosis, and suicidal ideation. Presenting for suicidal ideation with plans to cut his wrists or jump from a bridge. Reports that he was recently released from long term and was unable to refill his prescriptions afterward. This led to a decompensation in symptoms and a worsening of his suicidal ideation. He reports that sometime in the past he was told that he had diagnosis of borderline personal disorder as well as bipolar disorder. Currently he endorses hopelessness, and states that although he does not feel suicidal at this point in time he believes that is because he knows in the hospital he would not be allowed to hurt himself. VITAL SIGNS: See below. NEW TEST RESULTS: none CURRENT MEDICATIONS: See below. MENTAL STATUS EXAMINATION: Patient is a 40-year old male, who is in no acute distress, sitting in chair, abnormal jaw thrust movements, good hygiene, good eye contact, appears stated age Speech: Is normal rate, rhythm, prosody, spontaneous Language skills are good Thought processes including: linear, logical Thought content: endorses having suicidal thoughts without intent until yesterday, denies today Abstract reasoning, and computation: fair Description of associations: fair Description of abnormal or psychotic thoughts: AH, "telling me to end everything, but I'm not listening to them", not paranoid Judgment: poor Insight: poor Orientation: x4 Recent and remote memory: intact Attention span and concentration: fair Language: bahraini Fund of knowledge: average Mood: "good, pleasant" Affect: euthymic, appropriate, mood congruent DIAGNOSES: Schizoaffective disorder, bipolar type, most recent episode depressed Nicotine use disorder Cannabis use disorder ASSESSMENT:Reports "feels better", states medications are good, but has been having trouble sleeping, reports was on trazodone 300 mg qhs in the past with little benefit, does report seroquel helped him sleep before. Continues to command AH, states is able to ignore them, endorses sucidial thoughts, but st ates "they are not coming as much as they were", reports today has not had them. MANAGEMENT PLAN: Continue medications, start seroquel 50 mg qhs for sleep, 5%lidocain patch for backpain TIME SPENT: 15 minutes. Vital Signs Vital Signs Date Time Temp Pulse Resp B/P (MAP) Pulse Ox O2 Delivery O2 Flow Rate FiO2 02/18/21 08:20 Room Air 02/18/21 07:32 98.7 56 14 113/61 (78) 94 Current Medications Current Medications Medications (Trade) Dose Ordered Sig/An Route PRN Reason Start Time Stop Time Status Last Admin Dose Admin Acetaminophen (Tylenol Tab) 650 mg Q6HP PRN PO HEADACHE or MILD DISCOMFORT 02/14/21 16:50 Al Hydrox/Mg Hydrox/Simethicone (Mylanta) 30 ml Q4HP PRN PO HEARTBURN/INDIGESTION 02/14/21 16:50 Fluoxetine HCl (PROzac) 20 mg DAILY PO 02/15/21 09:00 02/18/21 08:09 Home Med (Home Med List Complete!) ASDIRECTED XX 02/14/21 11:20 02/14/21 11:22 DC Hydroxyzine HCl (Atarax) 50 mg Q6HP PRN PO ANXIETY/AGITATION 02/17/21 12:45 02/17/21 12:54 Magnesium Hydroxide (Milk Of Magnesia) 30 ml DAILYPRN PRN PO CONSTIPATION 02/14/21 16:50 Olanzapine (ZyPREXA) 10 mg QHS PO 02/15/21 21:00 02/17/21 20:20 Trazodone HCl (Desyrel) 50 mg QHSP PRN PO INSOMNIA 02/14/21 16:50 02/17/21 20:20 Allergies Coded Allergies: No Known Allergies (Verified , 04/27/18) SUZI MARADIAGA MD Feb 18, 2021 12:41
[2021-02-18] MEDS: LIDOCAINE 5% (LIDODERM) PATCH TD SCH (12:51)
[2021-02-18] MEDS: hydrOXYzine 50 MG TAB PO PRN (13:56)
[2021-02-18 18:47] VITALS: BP 140/69
[2021-02-18] MEDS: OLANZapine 10 MG TAB PO SCH (20:48)
[2021-02-18] MEDS: QUEtiapine FUMARATE 50MG TAB PO SCH (20:48)
[2021-02-18] MEDS: **NOTE PATIENT COMMENT** MISC XX SCH (20:49)
[2021-02-19 07:09] VITALS: BP 117/57
[2021-02-19] MEDS: FLUoxetine 20 MG CAP PO SCH (09:09)
[2021-02-19] MEDS: LIDOCAINE 5% (LIDODERM) PATCH TD SCH (09:09)
[2021-02-19 18:43] VITALS: BP 142/62
[2021-02-19] MEDS: **NOTE PATIENT COMMENT** MISC XX SCH (20:48)
[2021-02-19] MEDS: OLANZapine 10 MG TAB PO SCH (20:50)
[2021-02-19] MEDS: QUEtiapine FUMARATE 50MG TAB PO SCH (20:50)
[2021-02-20] MEDS: FLUoxetine 20 MG CAP PO SCH (07:55)
[2021-02-20] MEDS: LIDOCAINE 5% (LIDODERM) PATCH TD SCH (07:56)
[2021-02-20] MEDS ORDERED: FLUO20CA22 PO (10:39)
[2021-02-20] MEDS ORDERED: LIDO5TD TD (10:39)
[2021-02-20] MEDS ORDERED: QUET50TA4 PO (10:40)
[2021-02-20] MEDS ORDERED: OLAN1TAB20 PO (10:40)
--- NOTE | 2021-02-20 16:44 | MHDSPDOC ---
[facility] Discharge Summary Discharge Summary DATE OF ADMISSION: Feb 14, 2021 at 16:48 DATE OF DISCHARGE: Feb 20, 2021 at 12:37 DISCHARGE DIAGNOSES: Schizoaffective disorder, bipolar type, most recent episode depressed Nicotine use disorder Cannabis use disorder REASON FOR ADMISSION: Patient is a 40 -year-old single , unemployed , undomiciled , male, who has a history of depression, psychosis, and suicidal ideation. Presenting for suicidal ideation with plans to cut his wrists or jump from a bridge. Reports that [facility] and was unable to refill his prescriptions afterward. This led to a decompensation in symptoms and a worsening of his suicidal ideation. He reports that sometime in the past he was told that he had diagnosis of borderline personal disorder as well as bipolar disorder. Currently he endorses hopelessness, and states that although he does not feel suicidal at this point in time he believes that is because he knows in the hospital he would not be allowed to hurt himself. VITAL SIGNS: See below. CONSULTANTS INVOLVED: See Medical H + P by Hospitalist TREATMENT AND PROGRESS ON THE UNIT: Patient was admitted to the [facility] on a 9.39 legal status was afforded the following treatment modalities: 1) Individual Therapy 2) Group Therapy 3) Medication Management 4) Milieu Therapy 5) Safe Environment HOSPITAL COURSE: Patient was admitted to [facility] on a 9.39 legal status. Patient was started on fluoxetine 20 mg, trazodone 50 mg, Zyprexa 10 mg at bedtime. Patient had reported continued insomnia, trazodone was discontinued and Seroquel 50 mg was initiated over the weekend. In today's meeting patient reports that he is feeling better no longer suicidal and pt found medications beneficial and tolerated them well. Mood, anxiety, and intrusive thoughts improved with treatment. Patient was seen being friendly with peers visible on the unit and mild participation in groups. pts symptoms improved with treatment. On day of discharge pt. denied depression, anxiety, insomnia, SI/HI, hallucinations, delusions. Pt was discharged to [facility] with follow-up with [facility]. Pt felt safe for discharge. DISCHARGE ASSESSMENT: In today's interview, patient is alert and oriented, pt.s dress is appropriate. Hygiene and grooming is well-kempt. Smiles on approach and is pleasant and engaged in the interview. Denies depression and anxiety. Denies suicidal and homicidal ideation, planning or intent. Denies and is not observed with nini, psychotic symptoms of delusions, bizarre thinking, obsessions, paranoia, ruminations illogical thoughts, flight of ideas or having poor insight and judgement. Reinforced with patient need to abstain from alcohol and drugs. At discharge patient has normal mentation, declines further hospitalization on a voluntary status and meets criteria for discharge today. Discussed indications of medications, potential benefits and risks, alternatives (including no treatment) and questions were encouraged and answered. Patient encouraged to return to hospital if symptoms worsen or change and encouraged to call unit if he/she/they needs to speak to provider for questions regarding medications or care. MENTAL STATUS EXAMINATION ON DISCHARGE: Patient is a 40 -year-old single , unemployed , undomiciled , male, who has a history of depression, psychosis, and suicidal ideation. Presenting for suicidal ideation with plans to cut his wrists or jump from a bridge. Speech: Is fluid, conversant, normal rate, tone and volume Language skills are intact Thought processes including: linear and goal oriented Thought content: denies depression and anxiety. Denies suicidal/homicidal ideation, planning or intent. Abstract reasoning, and computation: fair Description of associations: denies, none observed Description of abnormal or psychotic thoughts: denies, none observed. Judgment: fair Insight: fair Orientation: alert and oriented to person, place, time and situation Recent and remote memory: intact Attention span and concentration: good Language: expansive Fund of knowledge: average Mood: Euthymic Mood Affect: reactive Suicide Risk Assessment: 1) Does the patient wish to be ? No 2) Since your admission, have you had any actual thought of killing yourself? No 3) Since your admission, have you been thinking about how you might do this? No 4) Since your admission, have you had these thoughts and had some intention of acting on them? No 5) Since your admission, have you started to work out or worked out the details of how to kill yourself? No 5A) Do you intent to carry out this plan? No and NA 6) Have you ever done anything, started anything, or prepared to do anything with any intent to ? No 6A) How long since your admission did you do any of these? NA MEDICATIONS ON DISCHARGE: See Medication Reconciliation PLAN/FOLLOWUP ARRANGEMENTS: Pt was discharged to [facility] with follow-up with [facility]. Pt felt safe for discharge. The amount of time spent in the coordination of care for this patient was approximately 25 minutes. ETOH/Disorder Med Rx ETOH/DRUG DISORDER RX: N/A Vital Signs/I&Os Vital Signs Date Time Temp Pulse Resp B/P (MAP) Pulse Ox O2 Delivery O2 Flow Rate FiO2 02/19/21 18:43 98.5 63 16 142/62 (88) 02/19/21 07:54 Room Air 02/19/21 07:09 95 Medications Scheduled Fluoxetine Hcl (Fluoxetine HCl) 20 Mg Capsule, 20 MG PO DAILY for Depression, #7 Lidocaine (Lidocaine) 5% Adh..patch, 1 PATCH TD DAILY for Pain, #1 Olanzapine (Olanzapine) 10 Mg Tablet, 10 MG PO QHS for Psychosis, #7 Quetiapine Fumarate (Quetiapine Fumarate) 50 Mg Tablet, 50 MG PO QHS for Sleep, #7 Allergies Coded Allergies: No Known Allergies (Verified , 04/27/18) HARJEET ANDERSEN NP Feb 20, 2021 16:44
== END 2021-02-20 12:37 | disposition home or self-care (01) | DRG 750 ==
LOC: M ED 22:37 → M ED INP 02-14 16:48 → M PSY 02-14 21:45
PROVIDERS: ADMIT Psychiatry & Neurology Psychiatry; ATTEND Psychiatry & Neurology Psychiatry
DX: F25.0 Schizoaffective disorder, bipolar type (principal); Z59.00 Homelessness unspecified; R45.851 Suicidal ideations; F17.200 Nicotine dependence, unspecified, uncomplicated; F12.10 Cannabis abuse, uncomplicated; Z65.2 Problems related to release from prison; Z62.811 Personal history of psychological abuse in childhood; Z62.810 Personal history of physical and sexual abuse in childhood; Z87.820 Personal history of traumatic brain injury

== ENCOUNTER 2021-05-13 03:21 | Inpatient (IN) | payer MEDICAID, MEDICARE, OTHER ==
[~2021-05-13] VITALS: Ht 160 cm; Wt 90.8 kg
[~2021-05-13 03:21] MED LIST changes: +OLAN1TAB20 PO
[2021-05-13 07:45] LABS: HEMATOCRIT 40.4 % (42.0-52.0); HEMOGLOBIN 14.2 g/dl (13.5-17.5); MEAN CORPUSCULAR HEMOGLOBIN 32.7 pg (27.0-33.0); MEAN CORPUSCULAR HGB CONC 35.1 g/dl (32.0-36.5); MEAN CORPUSCULAR VOLUME 93.1 fl (80.0-96.0); PLATELET COUNT, AUTOMATED 600 10^3/uL (150-450); RED BLOOD COUNT 4.34 10^6/uL (4.30-6.10); WHITE BLOOD COUNT 9.7 10^3/uL (4.0-10.0)
[2021-05-13 08:07] LABS: AMPHETAMINES LEVEL URINE NEGATIVE (NEGATIVE); BARBITURATES URINE NEGATIVE (NEGATIVE); BENZODIAZEPINES URINE NEGATIVE (NEGATIVE); CANNABINOIDS URINE POSITIVE (NEGATIVE); COCAINE METABOLITE URINE NEGATIVE (NEGATIVE); METHADONE URINE NEGATIVE (NEGATIVE); OPIATES URINE NEGATIVE (NEGATIVE); PHENCYCLIDINE URINE NEGATIVE (NEGATIVE)
[2021-05-13 08:34] LABS: ACETAMINOPHEN LEVEL 2.3 UG/ML (10.0-30.0); ALBUMIN 3.5 GM/DL (3.2-5.2); ALT/SGPT 23 U/L (12-78); BILIRUBIN,DIRECT 0.2 MG/DL (0.0-0.2); BILIRUBIN,TOTAL 0.7 MG/DL (0.2-1.0); BLOOD UREA NITROGEN 13 MG/DL (7-18); CALCIUM LEVEL 9.2 MG/DL (8.5-10.1); CARBON DIOXIDE LEVEL 25 MEQ/L (21-32); CHLORIDE LEVEL 108 MEQ/L (98-107); CREATININE FOR GFR 0.85 MG/DL (0.70-1.30); ETHYL ALCOHOL (ETHANOL) < 0.003 % (0.000-0.010); GLOMERULAR FILTRATION RATE > 60.0 (>60); GLUCOSE, FASTING 85 MG/DL (70-100); POTASSIUM SERUM 4.5 MEQ/L (3.5-5.1); SALICYLATE LEVEL < 1.7 MG/DL (5.0-30.0); SODIUM LEVEL 139 MEQ/L (136-145); TOTAL PROTEIN 7.1 GM/DL (6.4-8.2)
[2021-05-13] MEDS ORDERED: HOME MED LIST COMPLETE! XX SCH (15:25)
[2021-05-13 17:34] LABS: RSV AMPLIFICATION NEGATIVE (NEGATIVE)
[2021-05-15] MEDS ORDERED: ACETAMINOPHEN TAB 650MG DOSE (2X325MG) PO PRN (14:10)
[2021-05-15] MEDS ORDERED: MAALOX 30 ML SUSP *UDC PO PRN (14:10)
[2021-05-15] MEDS ORDERED: MOM 30ML SUSPENSION UDC PO PRN (14:10)
[2021-05-15 15:11] VITALS: BP 128/77
[2021-05-16 06:38] VITALS: BP 120/69
[2021-05-16] MEDS: FLUoxetine 20 MG CAP PO SCH (10:24)
[2021-05-16] MEDS: IBUPROFEN 200MG TAB PO SCH ×2 (12:30→17:11)
[2021-05-16] MEDS: QUEtiapine FUMARATE 50MG TAB PO SCH (20:31)
[2021-05-16] MEDS: traZODone 50 MG TAB PO PRN (20:31)
[2021-05-16] MEDS ORDERED: OLANZapine 10 MG TAB PO SCH (21:00)
[2021-05-17 06:50] VITALS: BP 138/78
[2021-05-17] MEDS: FLUoxetine 20 MG CAP PO SCH (08:37)
[2021-05-17] MEDS: IBUPROFEN 200MG TAB PO SCH ×3 (08:38→17:15)
[2021-05-17 12:51] LABS: CHOLESTEROL RISK RATIO 4.285 (<5)
[2021-05-17 16:07] VITALS: BP 116/63
[2021-05-17] MEDS: QUEtiapine FUMARATE 50MG TAB PO SCH (20:26)
[2021-05-17] MEDS: traZODone 50 MG TAB PO PRN (20:26)
[2021-05-17] MEDS ORDERED: OLANZapine 10 MG TAB PO SCH ×2 (21:00)
[2021-05-18 06:58] VITALS: BP 122/57
[2021-05-18] MEDS: IBUPROFEN 200MG TAB PO SCH (08:20)
[2021-05-18] MEDS ORDERED: TRAZ-252 PO (08:55)
[2021-05-18] MEDS ORDERED: OLAN1TAB20 PO (08:55)
[2021-05-18] MEDS ORDERED: QUET50TA4 PO (08:55)
[2021-05-18] MEDS ORDERED: FLUO20CA22 PO (08:55)
[2021-05-18] MEDS ORDERED: FLUoxetine 20 MG CAP PO SCH ×2 (09:00)
== END 2021-05-18 10:27 | disposition home or self-care (01) | DRG 750 ==
LOC: M ED 03:21 → M ED INP 05-15 14:10 → M PSY 05-15 15:40
PROVIDERS: ADMIT Student in an Organized Health Care Education/Training Program; ATTEND Student in an Organized Health Care Education/Training Program
DX: F25.9 Schizoaffective disorder, unspecified (principal); Z91.19 Patient's noncompliance with other medical treatment and regimen; R45.851 Suicidal ideations; F17.200 Nicotine dependence, unspecified, uncomplicated; F12.90 Cannabis use, unspecified, uncomplicated; B19.20 Unspecified viral hepatitis C without hepatic coma; Z90.81 Acquired absence of spleen

== ENCOUNTER 2021-12-14 01:20 | Emergency (ER) | payer MEDICAID ==
[~2021-12-14] VITALS: Ht 185.4 cm; Wt 84.4 kg
[2021-12-14 01:29] VITALS: BP 114/75
== END 2021-12-14 03:27 | disposition left against medical advice (07) ==
LOC: M ED 01:20 → EDBD 01:20 → M ED 03:27
DX: Z53.29 Procedure and treatment not carried out because of patient's decision for other reasons (principal)

== ENCOUNTER 2022-01-08 23:44 | Emergency (ER) | payer MEDICAID ==
[~2022-01-08] VITALS: Ht 185.4 cm; Wt 84.5 kg
[2022-01-08 23:46] VITALS: BP 123/57
== END 2022-01-09 00:20 | disposition left against medical advice (07) ==
LOC: M ED 23:44
DX: Z53.29 Procedure and treatment not carried out because of patient's decision for other reasons (principal)

== ENCOUNTER 2022-02-18 21:30 | Inpatient (IN) | payer MEDICAID, OTHER ==
[~2022-02-18] VITALS: Ht 185.4 cm; Wt 86.0 kg
[2022-02-19] MEDS ORDERED: VANCOMYCIN HCL 1,750 MG in NS 250 ML IV ONE (06:20)
[2022-02-19] MEDS ORDERED: NS 2,520 ML in IV 1 EA IV ONE (06:20)
[2022-02-19] MEDS ORDERED: KETOROLAC 30 MG/ML 1ML VIAL IV ONE (06:25)
[2022-02-19] MEDS ORDERED: VANCOMYCIN HCL 1,000 MG, VIAL MATE ADAPTER 1 EACH in D5W 250 ML IV ONE (06:30)
[2022-02-19] MEDS ORDERED: VANCOMYCIN HCL 750 MG, VIAL MATE ADAPTER 1 EACH in D5W 250 ML IV ONE (06:30)
[2022-02-19 06:39] LABS: BASO # 0.1 10^3/uL (0.0-0.2); BASO % 0.6 % (0.0-1.0); EOS # 0.1 10^3/uL (0.0-0.5); EOS % 0.4 % (0.0-3.0); HEMATOCRIT 39.2 % (42.0-52.0); HEMOGLOBIN 13.6 g/dl (13.5-17.5); LYMPH # 2.8 10^3/uL (1.5-5.0); LYMPH % 19.6 % (24.0-44.0); MEAN CORPUSCULAR HEMOGLOBIN 31.9 pg (27.0-33.0); MEAN CORPUSCULAR HGB CONC 34.7 g/dl (32.0-36.5); MEAN CORPUSCULAR VOLUME 91.8 fl (80.0-96.0); MONO % 16.7 % (2.0-8.0); NEUTROPHILS # 8.8 10^3/uL (1.5-8.5); NEUTROPHILS % 61.6 % (36.0-66.0); PLATELET COUNT, AUTOMATED 636 10^3/uL (150-450); RED BLOOD COUNT 4.27 10^6/uL (4.30-6.10); WHITE BLOOD COUNT 14.3 10^3/uL (4.0-10.0)
[2022-02-19 06:41] LABS: MONO # 2.4 10^3/uL (0.0-0.8)
[2022-02-19 07:17] LABS: BLOOD UREA NITROGEN 10 MG/DL (7-18); CALCIUM LEVEL 8.9 MG/DL (8.5-10.1); CARBON DIOXIDE LEVEL 24 MEQ/L (21-32); CHLORIDE LEVEL 101 MEQ/L (98-107); CREATININE FOR GFR 0.98 MG/DL (0.70-1.30); GLOMERULAR FILTRATION RATE > 60.0 (>60); GLUCOSE, FASTING 91 MG/DL (70-100); POTASSIUM SERUM 3.9 MEQ/L (3.5-5.1); SODIUM LEVEL 132 MEQ/L (136-145)
[2022-02-19] MEDS ORDERED: ACETAMINOPHEN 500 MG TAB PO PRN (10:10)
[2022-02-19 12:08] LABS: INR 1.12; PROTHROMBIN TIME 14.6 SECONDS (12.5-14.5)
[2022-02-19 12:09] LABS: PARTIAL THROMBOPLASTIN TIME 32.9 SECONDS (24.8-34.2)
[2022-02-19] MEDS ORDERED: LIDOCAINE 1% MDV 20ML VIAL As Ordered ONE (15:46)
[2022-02-19] MEDS ORDERED: patient note (16:00)
[2022-02-19] MEDS ORDERED: HOME MED LIST COMPLETE! XX SCH (16:00)
[2022-02-19] MEDS: CEFTAROLINE FOSAMIL 600 MG in D5W MINI-BAG PLUS 50 ML IV SCH (17:13)
[2022-02-19 21:57] VITALS: BP 123/62
[2022-02-19] MEDS: KETOROLAC 30 MG/ML 1ML VIAL IV PRN (22:35)
[2022-02-20] MEDS: CEFTAROLINE FOSAMIL 600 MG in D5W MINI-BAG PLUS 50 ML IV SCH (03:26)
[2022-02-20] MEDS ORDERED: SODIUM CHLORIDE 0.9% INJ 10 ML SYR IV PRN (03:50)
[2022-02-20 04:00] VITALS: BP 114/63
[2022-02-20] MEDS ORDERED: SODIUM CHLORIDE 0.9% INJ 10 ML SYR IV SCH (06:00)
[2022-02-20] MEDS ORDERED: ENOXAPARIN 40MG/0.4ML SYRINGE (J1650 PER 10MG) SC SCH (09:00)
[2022-02-20 09:03] LABS: BASO # 0.1 10^3/uL (0.0-0.2); BASO % 0.6 % (0.0-1.0); EOS # 0.1 10^3/uL (0.0-0.5); EOS % 0.5 % (0.0-3.0); HEMATOCRIT 43.2 % (42.0-52.0); HEMOGLOBIN 14.4 g/dl (13.5-17.5); LYMPH # 2.7 10^3/uL (1.5-5.0); LYMPH % 27.4 % (24.0-44.0); MEAN CORPUSCULAR HGB CONC 33.3 g/dl (32.0-36.5); MEAN CORPUSCULAR VOLUME 93.1 fl (80.0-96.0); MONO # 1.4 10^3/uL (0.0-0.8); MONO % 14.4 % (2.0-8.0); NEUTROPHILS # 5.5 10^3/uL (1.5-8.5); NEUTROPHILS % 56.5 % (36.0-66.0); RED BLOOD COUNT 4.64 10^6/uL (4.30-6.10); WHITE BLOOD COUNT 9.8 10^3/uL (4.0-10.0)
[2022-02-20 09:49] LABS: BLOOD UREA NITROGEN 12 MG/DL (7-18); CALCIUM LEVEL 9.1 MG/DL (8.5-10.1); CARBON DIOXIDE LEVEL 24 MEQ/L (21-32); CHLORIDE LEVEL 104 MEQ/L (98-107); CREATININE FOR GFR 0.83 MG/DL (0.70-1.30); GLOMERULAR FILTRATION RATE > 60.0 (>60); GLUCOSE, FASTING 81 MG/DL (70-100); POTASSIUM SERUM 4.9 MEQ/L (3.5-5.1); SODIUM LEVEL 134 MEQ/L (136-145)
[2022-02-20] MEDS: KETOROLAC 30 MG/ML 1ML VIAL IV PRN (09:52)
[2022-02-20 10:04] LABS: PLATELET COUNT, AUTOMATED 642 10^3/uL (150-450)
[2022-02-20] MEDS ORDERED: ALBUTEROL 90 MCG/ACT 8GM HFA INHALER INH PRN (11:50)
[2022-02-20] MEDS ORDERED: methylPREDNISolone 125MG 2ML VIAL IV ONE (11:50)
[2022-02-20] MEDS ORDERED: NS 1,000 ML IV SCH (11:50)
[2022-02-20] MEDS ORDERED: diphenhydrAMINE 50MG/ML VIAL (J1200) IV PRN (11:50)
[2022-02-20] MEDS ORDERED: diphenhydrAMINE 50MG/ML VIAL (J1200) IV ONE (11:50)
[2022-02-20] MEDS ORDERED: methylPREDNISolone 125MG 2ML VIAL IV PRN (11:50)
[2022-02-20] MEDS ORDERED: BEBTELOVIMAB 175MG 2ML VIAL (EUA) IV ONE (11:50)
[2022-02-20] MEDS ORDERED: EPINEPHrine INJ 1 MG/ML 1ML AMP IM PRN (11:50)
[2022-02-20] MEDS ORDERED: IBUP200C25 PO (11:55)
[2022-02-20 12:00] VITALS: BP 117/69
== END 2022-02-20 16:20 | disposition home or self-care (01) | DRG 720 ==
LOC: M ED 21:30 → M ED INP 02-19 10:07 → M 4MAIN 02-19 21:57
PROVIDERS: ADMIT Internal Medicine Nephrology; ATTEND Internal Medicine Nephrology
PROC: 8E0ZXY6 Isolation (ICD-10-PCS; 2022-02-19)
PROC: 02HV33Z Insertion of Infusion Device into Superior Vena Cava, Percutaneous Approach (ICD-10-PCS; principal; 2022-02-19 15:00)
DX: A41.9 Sepsis, unspecified organism (principal); U07.1 COVID-19; I80.8 Phlebitis and thrombophlebitis of other sites; F25.9 Schizoaffective disorder, unspecified; L03.114 Cellulitis of left upper limb; F16.90 Hallucinogen use, unspecified, uncomplicated; F17.200 Nicotine dependence, unspecified, uncomplicated; B19.20 Unspecified viral hepatitis C without hepatic coma; F32.A Depression, unspecified; L03.113 Cellulitis of right upper limb

== ENCOUNTER 2022-02-20 22:00 | Outpatient (CLI) | payer OTHER ==
[~2022-02-20] VITALS: Ht 183.1 cm; Wt 86.0 kg
[2022-02-20 17:04] VITALS: BP 121/69
[2022-02-20 17:36] VITALS: BP 118/67
[2022-02-20 20:14] VITALS: BP 116/70
[~2022-02-20 22:00] MED LIST changes: +ACETAMINOPHEN TAB 650MG DOSE (2X325MG) PO ONE; +ACETAMINOPHEN TAB 650MG DOSE (2X325MG) PO PRN; +ALBUTEROL 90 MCG/ACT 8GM HFA INHALER INH PRN; +BEBTELOVIMAB 175MG 2ML VIAL (EUA) IV ONE; +DALBAVANCIN 1,500 MG in D5W 250 ML IV ONE; +EPINEPHrine INJ 1 MG/ML 1ML AMP IM PRN; +IBUP200C25 PO; +NS 1,000 ML IV SCH; +diphenhydrAMINE 50MG/ML VIAL IV ONE; +diphenhydrAMINE 50MG/ML VIAL IV PRN; +methylPREDNISolone 125MG 2ML VIAL IV PRN; +methylPREDNISolone 40MG 1ML VIAL IV ONE; +patient note
[2022-02-20 22:15] VITALS: BP 116/71
== END 2022-02-20 22:30 | disposition home or self-care (01) ==
LOC: M OPCLI4 22:00
PROVIDERS: ATTEND General Practice
DX: U07.1 COVID-19 (principal); L03.113 Cellulitis of right upper limb; L03.114 Cellulitis of left upper limb; I80.8 Phlebitis and thrombophlebitis of other sites; F19.10 Other psychoactive substance abuse, uncomplicated
CPT/HCPCS: 96375; J0875; J1200; J2920; M0222; Q0222

== ENCOUNTER → 2022-02-26 | Outpatient (REF) | payer OTHER ==
[~2022-02-26] MED LIST changes: -ACETAMINOPHEN TAB 650MG DOSE (2X325MG) PO ONE; -ACETAMINOPHEN TAB 650MG DOSE (2X325MG) PO PRN; -ALBUTEROL 90 MCG/ACT 8GM HFA INHALER INH PRN; -BEBTELOVIMAB 175MG 2ML VIAL (EUA) IV ONE; -DALBAVANCIN 1,500 MG in D5W 250 ML IV ONE; -EPINEPHrine INJ 1 MG/ML 1ML AMP IM PRN; -NS 1,000 ML IV SCH; -diphenhydrAMINE 50MG/ML VIAL IV ONE; -diphenhydrAMINE 50MG/ML VIAL IV PRN; -methylPREDNISolone 125MG 2ML VIAL IV PRN; -methylPREDNISolone 40MG 1ML VIAL IV ONE
[2022-02-26 17:37] LABS: HEMATOCRIT 48.6 % (42.0-52.0); HEMOGLOBIN 16.1 g/dl (13.5-17.5); MEAN CORPUSCULAR HEMOGLOBIN 31.5 pg (27.0-33.0); MEAN CORPUSCULAR HGB CONC 33.1 g/dl (32.0-36.5); MEAN CORPUSCULAR VOLUME 95.1 fl (80.0-96.0); PLATELET COUNT, AUTOMATED 572 10^3/uL (150-450); RED BLOOD COUNT 5.11 10^6/uL (4.30-6.10); WHITE BLOOD COUNT 16.8 10^3/uL (4.0-10.0)
[2022-02-26 17:57] LABS: ALBUMIN 3.9 GM/DL (3.2-5.2); ALT/SGPT 28 U/L (12-78); BILIRUBIN,TOTAL 0.5 MG/DL (0.2-1.0); BLOOD UREA NITROGEN 17 MG/DL (7-18); CALCIUM LEVEL 9.6 MG/DL (8.5-10.1); CARBON DIOXIDE LEVEL 21 MEQ/L (21-32); CHLORIDE LEVEL 107 MEQ/L (98-107); CREATININE FOR GFR 0.74 MG/DL (0.70-1.30); GLOMERULAR FILTRATION RATE > 60.0 (>60); GLUCOSE, FASTING 92 MG/DL (70-100); POTASSIUM SERUM 5.2 MEQ/L (3.5-5.1); SODIUM LEVEL 135 MEQ/L (136-145); TOTAL PROTEIN 8.8 GM/DL (6.4-8.2)
[2022-02-26 18:40] LABS: HEPATITIS B SURFACE ANTIBODY POSITIVE (POSITIVE)
[2022-02-26 18:46] LABS: HEPATITIS B SURFACE ANTIGEN NEGATIVE (NEGATIVE)
[2022-02-26 19:14] LABS: HIV 1&2 SCREEN CENTAUR NEGATIVE (NEGATIVE)
== END ==
LOC: M LAB REF 17:05
PROVIDERS: ATTEND Family Medicine Addiction Medicine
DX: B17.10 Acute hepatitis C without hepatic coma (principal)

== ENCOUNTER → 2022-03-27 | Outpatient (REF) | payer OTHER ==
[2022-03-27 18:08] LABS: BASO # 0.1 10^3/uL (0.0-0.2); BASO % 0.7 % (0.0-1.0); EOS # 0.1 10^3/uL (0.0-0.5); EOS % 0.4 % (0.0-3.0); HEMATOCRIT 44.7 % (42.0-52.0); HEMOGLOBIN 14.9 g/dl (13.5-17.5); LYMPH # 3.1 10^3/uL (1.5-5.0); LYMPH % 25.9 % (24.0-44.0); MEAN CORPUSCULAR HEMOGLOBIN 31.4 pg (27.0-33.0); MEAN CORPUSCULAR HGB CONC 33.3 g/dl (32.0-36.5); MEAN CORPUSCULAR VOLUME 94.1 fl (80.0-96.0); MONO # 0.9 10^3/uL (0.0-0.8); MONO % 7.4 % (2.0-8.0); NEUTROPHILS # 7.8 10^3/uL (1.5-8.5); PLATELET COUNT, AUTOMATED 571 10^3/uL (150-450); RED BLOOD COUNT 4.75 10^6/uL (4.30-6.10); WHITE BLOOD COUNT 12.1 10^3/uL (4.0-10.0)
[2022-03-27 18:29] LABS: HEMOGLOBIN A1c 4.9 % (4.0-6.0)
[2022-03-27 18:59] LABS: ALBUMIN 4.5 G/DL (3.2-5.2); CARBON DIOXIDE LEVEL 24 MMOL/L (20-31); CHLORIDE LEVEL 102 MMOL/L (98-107); SODIUM LEVEL 138 MMOL/L (136-145)
[2022-03-27 19:04] LABS: BLOOD UREA NITROGEN 15 MG/DL (9-23); CALCIUM LEVEL 9.9 MG/DL (8.5-10.1); TRIGLYCERIDES LEVEL 165 MG/DL (<150)
[2022-03-27 19:05] LABS: ALKALINE PHOSPHATASE 107 U/L (46-116); GLUCOSE, FASTING 78 MG/DL (60-100)
[2022-03-27 19:06] LABS: ALT/SGPT 33 U/L (7.0-40); AST/SGOT 35 U/L (<34); BILIRUBIN,TOTAL 0.5 MG/DL (0.3-1.2); TOTAL PROTEIN 8.3 G/DL (5.7-8.2)
[2022-03-27 19:07] LABS: CHOLESTEROL LEVEL 163 MG/DL (<200); CHOLESTEROL RISK RATIO 3.43 (<5); CREATININE FOR GFR 0.85 MG/DL (0.70-1.30); GLOMERULAR FILTRATION RATE > 60.0 (>60); HDL CHOLESTEROL 47.4 MG/DL (>40); LDL CHOLESTEROL 82.6 MG/DL (<100); NON-HDL-C 116 MG/DL
[2022-03-27 19:11] LABS: THYROID STIMULATING HORMONE 0.814 uIU/ML (0.55-4.78)
[2022-03-27 19:18] LABS: POTASSIUM SERUM 4.5 MMOL/L (3.5-5.1)
== END ==
LOC: M LAB REF 16:44
PROVIDERS: ATTEND Nurse Practitioner Family
DX: D72.829 Elevated white blood cell count, unspecified (principal); B17.10 Acute hepatitis C without hepatic coma; Z00.00 Encounter for general adult medical examination without abnormal findings

== ENCOUNTER 2022-06-19 20:02 | Emergency (ER) | payer OTHER ==
[~2022-06-19] VITALS: Ht 182.9 cm; Wt 90.4 kg
[2022-06-19 20:10] VITALS: BP 109/71
[2022-06-19] MEDS ORDERED: ONDANSETRON 4MG ORAL DISINTEGRATING TAB PO ONE (20:25)
[2022-06-19 21:28] LABS: BASO # 0.1 10^3/uL (0.0-0.2); BASO % 0.4 % (0.0-1.0); EOS # 0.1 10^3/uL (0.0-0.5); EOS % 0.6 % (0.0-3.0); HEMATOCRIT 40.2 % (42.0-52.0); HEMOGLOBIN 13.5 g/dl (13.5-17.5); LYMPH # 2.1 10^3/uL (1.5-5.0); LYMPH % 10.6 % (24.0-44.0); MEAN CORPUSCULAR HGB CONC 33.6 g/dl (32.0-36.5); MEAN CORPUSCULAR VOLUME 95.3 fl (80.0-96.0); MONO # 1.2 10^3/uL (0.0-0.8); MONO % 6.4 % (2.0-8.0); NEUTROPHILS # 15.9 10^3/uL (1.5-8.5); NEUTROPHILS % 81.3 % (36.0-66.0); PLATELET COUNT, AUTOMATED 575 10^3/uL (150-450); RED BLOOD COUNT 4.22 10^6/uL (4.30-6.10); WHITE BLOOD COUNT 19.5 10^3/uL (4.0-10.0)
[2022-06-19 21:46] LABS: ETHYL ALCOHOL (ETHANOL) < 0.003 % (0.000-0.010)
[2022-06-19 21:48] LABS: ACETAMINOPHEN LEVEL < 2.0 UG/ML (10.0-20.0); SALICYLATE LEVEL < 3.0 MG/DL (<30)
[2022-06-19 21:50] LABS: THYROID STIMULATING HORMONE 5.193 uIU/ML (0.55-4.78)
[2022-06-19 21:52] LABS: ALBUMIN 3.8 G/DL (3.2-5.2); ALKALINE PHOSPHATASE 109 U/L (46-116); ALT/SGPT 25 U/L (7.0-40); AST/SGOT 48 U/L (<34); BILIRUBIN,DIRECT 0.1 MG/DL (<0.4); BILIRUBIN,TOTAL 0.5 MG/DL (0.3-1.2); BLOOD UREA NITROGEN 11 MG/DL (9-23); CALCIUM LEVEL 9.2 MG/DL (8.5-10.1); CARBON DIOXIDE LEVEL 30 MMOL/L (20-31); CHLORIDE LEVEL 103 MMOL/L (98-107); CPK CREATINE PHOSPHOKINASE 125 U/L (46-171); CREATININE FOR GFR 1.04 MG/DL (0.70-1.30); GLOMERULAR FILTRATION RATE > 60.0 (>60); GLUCOSE, FASTING 110 MG/DL (60-100); POTASSIUM SERUM 5.6 MMOL/L (3.5-5.1); SODIUM LEVEL 138 MMOL/L (136-145); TOTAL PROTEIN 7.6 G/DL (5.7-8.2)
[2022-06-19 23:40] LABS: BARBITURATES URINE NEGATIVE (NEGATIVE); BENZODIAZEPINES URINE NEGATIVE (NEGATIVE); COCAINE METABOLITE URINE NEGATIVE (NEGATIVE); METHADONE URINE NEGATIVE (NEGATIVE); OPIATES URINE NEGATIVE (NEGATIVE); PHENCYCLIDINE URINE NEGATIVE (NEGATIVE)
[2022-06-19 23:52] LABS: AMPHETAMINES LEVEL URINE POSITIVE (NEGATIVE); CANNABINOIDS URINE POSITIVE (NEGATIVE)
== END 2022-06-20 01:44 | disposition home or self-care (01) ==
LOC: EDBD 20:02 → M ED 20:02
DX: M25.571 Pain in right ankle and joints of right foot (principal); T43.641A Poisoning by ecstasy, accidental (unintentional), initial encounter; F32.9 Major depressive disorder, single episode, unspecified; F25.9 Schizoaffective disorder, unspecified; Z86.19 Personal history of other infectious and parasitic diseases; F17.200 Nicotine dependence, unspecified, uncomplicated

== ENCOUNTER 2022-08-27 03:46 | Emergency (ER) | payer OTHER ==
[~2022-08-27] VITALS: Ht 185.4 cm; Wt 85.1 kg
[~2022-08-27 03:46] MED LIST changes: -ALBU2TA INH; +ALBU2TAB13 INH
[2022-08-27 03:47] VITALS: BP 135/88
== END 2022-08-27 10:34 | disposition home or self-care (01) ==
LOC: M ED 03:46
DX: Z59.00 Homelessness unspecified (principal); Z00.00 Encounter for general adult medical examination without abnormal findings; J45.909 Unspecified asthma, uncomplicated; B18.2 Chronic viral hepatitis C; Z87.820 Personal history of traumatic brain injury; F41.9 Anxiety disorder, unspecified; F17.200 Nicotine dependence, unspecified, uncomplicated

== ENCOUNTER 2022-10-30 16:38 | Emergency (ER) | payer OTHER ==
[~2022-10-30] VITALS: Ht 185.4 cm; Wt 81.2 kg
[2022-10-30 17:44] LABS: HEMATOCRIT 37.1 % (42.0-52.0); HEMOGLOBIN 12.9 g/dl (13.5-17.5); MEAN CORPUSCULAR HEMOGLOBIN 31.9 pg (27.0-33.0); MEAN CORPUSCULAR HGB CONC 34.8 g/dl (32.0-36.5); MEAN CORPUSCULAR VOLUME 91.8 fl (80.0-96.0); PLATELET COUNT, AUTOMATED 493 10^3/uL (150-450); RED BLOOD COUNT 4.04 10^6/uL (4.30-6.10); WHITE BLOOD COUNT 11.3 10^3/uL (4.0-10.0)
[2022-10-30 18:07] LABS: BARBITURATES URINE NEGATIVE (NEGATIVE); BENZODIAZEPINES URINE NEGATIVE (NEGATIVE); METHADONE URINE NEGATIVE (NEGATIVE); OPIATES URINE NEGATIVE (NEGATIVE); PHENCYCLIDINE URINE NEGATIVE (NEGATIVE)
[2022-10-30 18:09] LABS: ETHYL ALCOHOL (ETHANOL) < 0.003 % (0.000-0.010)
[2022-10-30 18:10] LABS: ACETAMINOPHEN LEVEL < 2.0 UG/ML (10.0-20.0); SALICYLATE LEVEL < 3.0 MG/DL (<30)
[2022-10-30 18:11] LABS: ALBUMIN 4.1 G/DL (3.2-5.2); ALKALINE PHOSPHATASE 89 U/L (46-116); ALT/SGPT 16 U/L (7.0-40); AST/SGOT 18 U/L (<34); BILIRUBIN,DIRECT 0.4 MG/DL (<0.4); BILIRUBIN,TOTAL 1.2 MG/DL (0.3-1.2); BLOOD UREA NITROGEN 19 MG/DL (9-23); CALCIUM LEVEL 10.3 MG/DL (8.5-10.1); CARBON DIOXIDE LEVEL 25 MMOL/L (20-31); CHLORIDE LEVEL 107 MMOL/L (98-107); CREATININE FOR GFR 1.11 MG/DL (0.70-1.30); GLOMERULAR FILTRATION RATE > 60.0 (>60); GLUCOSE, FASTING 73 MG/DL (60-100); POTASSIUM SERUM 4.1 MMOL/L (3.5-5.1); SODIUM LEVEL 140 MMOL/L (136-145); TOTAL PROTEIN 7.2 G/DL (5.7-8.2)
[2022-10-30 18:13] LABS: THYROID STIMULATING HORMONE 0.576 uIU/ML (0.55-4.78)
[2022-10-30 18:13] LABS: AMPHETAMINES LEVEL URINE POSITIVE (NEGATIVE); CANNABINOIDS URINE POSITIVE (NEGATIVE); COCAINE METABOLITE URINE POSITIVE (NEGATIVE)
[2022-10-30] MEDS ORDERED: HOME MED LIST COMPLETE! XX SCH (19:15)
[2022-10-31 09:49] VITALS: BP 109/55; TEMP 98.2; O2SAT 97
== END 2022-10-31 11:52 | disposition home or self-care (01) ==
LOC: M ED 16:38
DX: F19.10 Other psychoactive substance abuse, uncomplicated (principal); R45.851 Suicidal ideations; B19.20 Unspecified viral hepatitis C without hepatic coma; F25.9 Schizoaffective disorder, unspecified; F17.200 Nicotine dependence, unspecified, uncomplicated; Z79.899 Other long term (current) drug therapy

== ENCOUNTER 2023-02-13 04:12 | Emergency (ER) | payer OTHER ==
[~2023-02-13] VITALS: Ht 185.4 cm; Wt 84.9 kg
[2023-02-13] MEDS ORDERED: KETOROLAC 60MG 2ML VIAL IM ONE (06:50)
[2023-02-13 07:16] LABS: BASO # 0.1 10^3/uL (0.0-0.2); BASO % 1.2 % (0.0-1.0); EOS # 0.3 10^3/uL (0.0-0.5); EOS % 3.4 % (0.0-3.0); HEMATOCRIT 34.7 % (42.0-52.0); HEMOGLOBIN 12.1 g/dl (13.5-17.5); LYMPH # 2.7 10^3/uL (1.5-5.0); LYMPH % 27.5 % (24.0-44.0); MEAN CORPUSCULAR HEMOGLOBIN 32.5 pg (27.0-33.0); MEAN CORPUSCULAR HGB CONC 34.9 g/dl (32.0-36.5); MEAN CORPUSCULAR VOLUME 93.3 fl (80.0-96.0); MONO % 9.7 % (2.0-8.0); NEUTROPHILS # 5.7 10^3/uL (1.5-8.5); NEUTROPHILS % 57.9 % (36.0-66.0); PLATELET COUNT, AUTOMATED 586 10^3/uL (150-450); RED BLOOD COUNT 3.72 10^6/uL (4.30-6.10); WHITE BLOOD COUNT 9.8 10^3/uL (4.0-10.0)
[2023-02-13 07:44] LABS: C REACTIVE PROTEIN QUANTITATIV < 0.40 MG/DL (<1.0)
[2023-02-13 07:46] LABS: BLOOD UREA NITROGEN 23 MG/DL (9-23); CARBON DIOXIDE LEVEL 26 MMOL/L (20-31); CHLORIDE LEVEL 106 MMOL/L (98-107); CREATININE FOR GFR 0.73 MG/DL (0.70-1.30); GLOMERULAR FILTRATION RATE > 60.0 (>60); GLUCOSE, FASTING 106 MG/DL (60-100); POTASSIUM SERUM 4.4 MMOL/L (3.5-5.1); SODIUM LEVEL 138 MMOL/L (136-145); URIC ACID 4.5 MG/DL (3.7-9.2)
[2023-02-13 08:06] LABS: ERYTHROCYTE SEDIMENTATION RATE 10 mm/hr (0-15)
[2023-02-13 08:12] VITALS: BP 123/66; TEMP 97.2; O2SAT 98
[2023-02-13] MEDS ORDERED: NAPR-837 PO (08:26)
== END 2023-02-13 09:07 | disposition home or self-care (01) ==
LOC: M ED 04:12
DX: M25.572 Pain in left ankle and joints of left foot (principal); F17.200 Nicotine dependence, unspecified, uncomplicated; F19.90 Other psychoactive substance use, unspecified, uncomplicated
CPT/HCPCS: 73610; 80048; 84550; 85025; 85652; 86140; 96372; 99284; J1885

== ENCOUNTER 2023-02-17 01:03 | Emergency (ER) | payer OTHER ==
[~2023-02-17] VITALS: Ht 185.4 cm; Wt 84.1 kg
[2023-02-17 01:04] VITALS: BP 119/66; TEMP 97.8; O2SAT 98
[2023-02-17] MEDS ORDERED: IBUPROFEN 600MG TAB PO ONE (01:50)
== END 2023-02-17 03:09 | disposition home or self-care (01) ==
LOC: M ED 01:03
DX: S93.402A Sprain of unspecified ligament of left ankle, initial encounter (principal); Y92.009 Unspecified place in unspecified non-institutional (private) residence as the place of occurrence of the external cause; M77.30 Calcaneal spur, unspecified foot

== ENCOUNTER 2023-05-22 04:51 | Emergency (ER) | payer OTHER ==
[~2023-05-22] VITALS: Ht 185.4 cm; Wt 85.7 kg
[2023-05-22] MEDS ORDERED: NAPROXEN 250 MG TAB PO ONE (07:05)
[2023-05-22] MEDS ORDERED: ACET325C5 PO (07:37)
[2023-05-22] MEDS ORDERED: IBUP-1022 PO (07:37)
[2023-05-22 08:03] VITALS: BP 135/81; TEMP 98.2; O2SAT 97
== END 2023-05-22 08:04 | disposition home or self-care (01) ==
LOC: M ED 04:51
DX: M25.572 Pain in left ankle and joints of left foot (principal); M77.32 Calcaneal spur, left foot; F17.210 Nicotine dependence, cigarettes, uncomplicated; Z79.1 Long term (current) use of non-steroidal anti-inflammatories (NSAID)

== ENCOUNTER 2023-05-22 10:35 | Emergency (ER) | payer OTHER ==
[~2023-05-22] VITALS: Ht 185.4 cm; Wt 84.1 kg
[~2023-05-22 10:35] MED LIST changes: +ACET325C5 PO
[2023-05-22 10:47] VITALS: BP 134/98; TEMP 97.7; O2SAT 100
[2023-05-22] MEDS ORDERED: ACETAMINOPHEN 325 MG TAB PO ONE (11:50)
== END 2023-05-22 12:05 | disposition home or self-care (01) ==
LOC: EDBD 10:35 → M ED 10:35
DX: M25.572 Pain in left ankle and joints of left foot (principal); F32.A Depression, unspecified; J45.909 Unspecified asthma, uncomplicated; F25.8 Other schizoaffective disorders; B19.20 Unspecified viral hepatitis C without hepatic coma; Z79.1 Long term (current) use of non-steroidal anti-inflammatories (NSAID)

== ENCOUNTER 2023-05-23 04:04 | Emergency (ER) | payer OTHER ==
[~2023-05-23] VITALS: Ht 185.4 cm; Wt 84.1 kg
[2023-05-23 05:53] VITALS: BP 144/89; TEMP 98.6; O2SAT 100
== END 2023-05-23 07:52 | disposition home or self-care (01) ==
LOC: M ED 04:04
DX: M25.572 Pain in left ankle and joints of left foot (principal); M19.072 Primary osteoarthritis, left ankle and foot; F43.0 Acute stress reaction; F17.210 Nicotine dependence, cigarettes, uncomplicated; Z79.1 Long term (current) use of non-steroidal anti-inflammatories (NSAID)

== ENCOUNTER 2024-02-01 12:51 | Emergency (ER) | payer MEDICAID, SELFPAY ==
[~2024-02-01] VITALS: Ht 185.4 cm; Wt 78.2 kg
[~2024-02-01 12:51] MED LIST changes: +FLUO-365 PO; -FLUO20CA22 PO
[2024-02-01] MEDS: ACETAMINOPHEN 500 MG TAB PO ONE (16:03)
[2024-02-01 16:19] LABS: BASO # 0.1 10^3/uL (0.0-0.2); BASO % 0.4 % (0.0-1.0); EOS # 0.2 10^3/uL (0.0-0.5); EOS % 1.1 % (0.0-3.0); HEMATOCRIT 38.1 % (42.0-52.0); HEMOGLOBIN 13.4 g/dl (13.5-17.5); LYMPH # 2.4 10^3/uL (1.5-5.0); LYMPH % 13.2 % (24.0-44.0); MEAN CORPUSCULAR HEMOGLOBIN 32.6 pg (27.0-33.0); MEAN CORPUSCULAR HGB CONC 35.2 g/dl (32.0-36.5); MEAN CORPUSCULAR VOLUME 92.7 fl (80.0-96.0); MONO # 2.1 10^3/uL (0.0-0.8); MONO % 11.5 % (2.0-8.0); NEUTROPHILS # 13.5 10^3/uL (1.5-8.5); NEUTROPHILS % 73.4 % (36.0-66.0); PLATELET COUNT, AUTOMATED 506 10^3/uL (150-450); RED BLOOD COUNT 4.11 10^6/uL (4.30-6.10); WHITE BLOOD COUNT 18.4 10^3/uL (4.0-10.0)
[2024-02-01 16:24] LABS: ERYTHROCYTE SEDIMENTATION RATE 8 mm/hr (0-15)
[2024-02-01 16:37] LABS: BLOOD UREA NITROGEN 16 MG/DL (9-23); CALCIUM LEVEL 9.7 MG/DL (8.5-10.1); CARBON DIOXIDE LEVEL 22 MMOL/L (20-31); CHLORIDE LEVEL 105 MMOL/L (98-107); CREATININE FOR GFR 0.79 MG/DL (0.70-1.30); GLOMERULAR FILTRATION RATE > 60.0 (>60); GLUCOSE, FASTING 75 MG/DL (60-100); POTASSIUM SERUM 4.4 MMOL/L (3.5-5.1); SODIUM LEVEL 135 MMOL/L (136-145)
[2024-02-01 16:39] LABS: URIC ACID 5.8 MG/DL (3.7-9.2)
[2024-02-01 18:05] VITALS: BP 146/90; TEMP 98.3; O2SAT 98
== END 2024-02-01 18:07 | disposition left against medical advice (07) ==
LOC: M ED 12:51
DX: M25.561 Pain in right knee (principal); M01.X61 Direct infection of right knee in infectious and parasitic diseases classified elsewhere; J45.909 Unspecified asthma, uncomplicated; F41.9 Anxiety disorder, unspecified; F32.A Depression, unspecified; F25.9 Schizoaffective disorder, unspecified; F17.210 Nicotine dependence, cigarettes, uncomplicated; F15.10 Other stimulant abuse, uncomplicated; Z53.9 Procedure and treatment not carried out, unspecified reason

== ENCOUNTER 2024-02-02 15:01 | Inpatient (IN) | payer MEDICAID, SELFPAY ==
[~2024-02-02] VITALS: Ht 185.4 cm; Wt 84.6 kg
[2024-02-02 16:22] LABS: BASO # 0.1 10^3/uL (0.0-0.2); BASO % 0.3 % (0.0-1.0); EOS # 0.1 10^3/uL (0.0-0.5); EOS % 0.7 % (0.0-3.0); HEMATOCRIT 43.9 % (42.0-52.0); HEMOGLOBIN 15.4 g/dl (13.5-17.5); LYMPH # 2.4 10^3/uL (1.5-5.0); MEAN CORPUSCULAR HEMOGLOBIN 33.1 pg (27.0-33.0); MEAN CORPUSCULAR HGB CONC 35.1 g/dl (32.0-36.5); MEAN CORPUSCULAR VOLUME 94.4 fl (80.0-96.0); MONO # 2.4 10^3/uL (0.0-0.8); MONO % 12.3 % (2.0-8.0); NEUTROPHILS # 14.5 10^3/uL (1.5-8.5); NEUTROPHILS % 74.2 % (36.0-66.0); PLATELET COUNT, AUTOMATED 540 10^3/uL (150-450); RED BLOOD COUNT 4.65 10^6/uL (4.30-6.10); WHITE BLOOD COUNT 19.6 10^3/uL (4.0-10.0)
[2024-02-02 16:46] LABS: BLOOD UREA NITROGEN 12 MG/DL (9-23); CALCIUM LEVEL 10.1 MG/DL (8.5-10.1); CARBON DIOXIDE LEVEL 26 MMOL/L (20-31); CHLORIDE LEVEL 100 MMOL/L (98-107); CREATININE FOR GFR 0.96 MG/DL (0.70-1.30); GLOMERULAR FILTRATION RATE > 60.0 (>60); GLUCOSE, FASTING 96 MG/DL (60-100); SODIUM LEVEL 132 MMOL/L (136-145)
[2024-02-02 17:53] LABS: PROCALCITONIN 0.15 ng/ml
[2024-02-02] MEDS: KETOROLAC 30 MG/ML 1ML VIAL IV ONE (17:58)
[2024-02-02] MEDS: VANCOMYCIN/WATER FOR INJ (PEG) 1,750 MG in IV 1 EA IV ONE (18:11)
[2024-02-02 19:13] LABS: URIC ACID 5.1 MG/DL (3.7-9.2)
[2024-02-02] MEDS ORDERED: HOME MED LIST COMPLETE! XX SCH (22:10)
[2024-02-02] MEDS ORDERED: VANCOMYCIN HCL 750 MG, VIAL MATE ADAPTER 1 EACH in D5W 250 ML IV SCH (22:50)
[2024-02-02] MEDS ORDERED: ACETAMINOPHEN 325 MG TAB PO PRN (22:50)
[2024-02-02] MEDS ORDERED: MOM 30ML SUSPENSION UDC PO PRN (22:50)
[2024-02-03] MEDS: PIPERACILLIN/TAZOBACTAM SOD 3.375 GM in D5W MINI-BAG PLUS 50 ML IV SCH (00:21)
[2024-02-03 01:03] VITALS: BP 118/72; TEMP 97.7; O2SAT 99
[2024-02-03] MEDS: VANCOMYCIN HCL 1,000 MG, VIAL MATE ADAPTER 1 EACH in D5W 250 ML IV SCH (01:42)
[2024-02-03] MEDS: KETOROLAC 30 MG/ML 1ML VIAL IV PRN (01:43)
[2024-02-03 04:03] VITALS: BP 109/61; TEMP 97.3; O2SAT 99
[2024-02-03 08:00] VITALS: BP 110/66; TEMP 96.8; O2SAT 99
[2024-02-03 08:29] LABS: BASO # 0.1 10^3/uL (0.0-0.2); BASO % 0.4 % (0.0-1.0); EOS # 0.2 10^3/uL (0.0-0.5); EOS % 0.9 % (0.0-3.0); HEMATOCRIT 39.9 % (42.0-52.0); HEMOGLOBIN 13.8 g/dl (13.5-17.5); LYMPH # 2.5 10^3/uL (1.5-5.0); LYMPH % 15.3 % (24.0-44.0); MEAN CORPUSCULAR HEMOGLOBIN 31.9 pg (27.0-33.0); MEAN CORPUSCULAR HGB CONC 34.6 g/dl (32.0-36.5); MEAN CORPUSCULAR VOLUME 92.4 fl (80.0-96.0); MONO # 2.1 10^3/uL (0.0-0.8); MONO % 12.8 % (2.0-8.0); NEUTROPHILS # 11.3 10^3/uL (1.5-8.5); NEUTROPHILS % 70.1 % (36.0-66.0); PLATELET COUNT, AUTOMATED 546 10^3/uL (150-450); RED BLOOD COUNT 4.32 10^6/uL (4.30-6.10); WHITE BLOOD COUNT 16.1 10^3/uL (4.0-10.0)
[2024-02-03] MEDS: PANTOPRAZOLE 40MG TAB (PROTONIX) PO SCH (09:00)
[2024-02-03] MEDS: ENOXAPARIN 40MG/0.4ML SYRINGE (J1650 PER 10MG) SC SCH (09:00)
[2024-02-03 09:03] LABS: ALBUMIN 3.5 G/DL (3.2-5.2); ALKALINE PHOSPHATASE 101 U/L (46-116); ALT/SGPT 12 U/L (7.0-40); AST/SGOT 12 U/L (<34); BILIRUBIN,TOTAL 1.6 MG/DL (0.3-1.2); BLOOD UREA NITROGEN 14 MG/DL (9-23); CARBON DIOXIDE LEVEL 22 MMOL/L (20-31); CHLORIDE LEVEL 104 MMOL/L (98-107); CREATININE FOR GFR 0.92 MG/DL (0.70-1.30); GLOMERULAR FILTRATION RATE > 60.0 (>60); GLUCOSE, FASTING 90 MG/DL (60-100); MAGNESIUM LEVEL 2.3 MG/DL (1.8-2.4); SODIUM LEVEL 136 MMOL/L (136-145); TOTAL PROTEIN 7.2 G/DL (5.7-8.2)
[2024-02-03] MEDS: NS 1,000 ML IV SCH (09:39)
[2024-02-03 12:00] VITALS: BP 110/67; TEMP 97.9; O2SAT 98
[2024-02-03 16:00] VITALS: BP 109/62; TEMP 97.7; O2SAT 98
[2024-02-03] MEDS: FLUZONE VACCINE TRIVALENT PF(2024-25) 0.5ML SYRINGE IM.IMMUN ONE (16:00)
[2024-02-03] MEDS ORDERED: VANCOMYCIN/WATER FOR INJ 1,000 MG in IV 1 EA IV SCH (18:00)
[2024-02-03 19:13] VITALS: BP 108/62; TEMP 97.3; O2SAT 97
[2024-02-04 00:22] VITALS: BP 119/61; TEMP 97.5; O2SAT 98
[2024-02-04 03:37] VITALS: BP 110/57; TEMP 97.7; O2SAT 97
[2024-02-04 06:46] LABS: BASO # 0.1 10^3/uL (0.0-0.2); BASO % 0.7 % (0.0-1.0); EOS # 0.2 10^3/uL (0.0-0.5); EOS % 1.5 % (0.0-3.0); HEMATOCRIT 36.2 % (42.0-52.0); HEMOGLOBIN 12.6 g/dl (13.5-17.5); LYMPH # 2.5 10^3/uL (1.5-5.0); LYMPH % 20.6 % (24.0-44.0); MEAN CORPUSCULAR HEMOGLOBIN 32.8 pg (27.0-33.0); MEAN CORPUSCULAR HGB CONC 34.8 g/dl (32.0-36.5); MEAN CORPUSCULAR VOLUME 94.3 fl (80.0-96.0); MONO # 1.7 10^3/uL (0.0-0.8); MONO % 14.2 % (2.0-8.0); NEUTROPHILS # 7.7 10^3/uL (1.5-8.5); NEUTROPHILS % 62.4 % (36.0-66.0); PLATELET COUNT, AUTOMATED 505 10^3/uL (150-450); RED BLOOD COUNT 3.84 10^6/uL (4.30-6.10); WHITE BLOOD COUNT 12.3 10^3/uL (4.0-10.0)
[2024-02-04 07:24] LABS: BLOOD UREA NITROGEN 19 MG/DL (9-23); CALCIUM LEVEL 8.9 MG/DL (8.5-10.1); CARBON DIOXIDE LEVEL 24 MMOL/L (20-31); CHLORIDE LEVEL 107 MMOL/L (98-107); CREATININE FOR GFR 0.81 MG/DL (0.70-1.30); GLOMERULAR FILTRATION RATE > 60.0 (>60); GLUCOSE, FASTING 90 MG/DL (60-100); MAGNESIUM LEVEL 2.2 MG/DL (1.8-2.4); POTASSIUM SERUM 4.5 MMOL/L (3.5-5.1); SODIUM LEVEL 136 MMOL/L (136-145)
[2024-02-04 08:00] VITALS: BP 117/62; TEMP 97.2; O2SAT 96
[2024-02-04 08:48] LABS: VANCOMYCIN RANDOM 3.3 UG/ML
[2024-02-04] MEDS: VANCOMYCIN 2,000 MG/400 ML IV BAG *LOAD IV ONE (09:57)
[2024-02-04 12:00] VITALS: BP 117/63; TEMP 97.2; O2SAT 97
[2024-02-04 16:00] VITALS: BP 127/77; TEMP 97.5; O2SAT 98
[2024-02-04] MEDS: VANCOMYCIN 1,000MG/200 ML IV BAG IV SCH (16:46)
[2024-02-04 17:08] LABS: HIV 1&2 SCREEN NEGATIVE (NEGATIVE)
[2024-02-04] MEDS: PREVNAR-20 VACCINE 0.5ML SYRINGE IM.IMMUN ONE (18:45)
[2024-02-04] MEDS: BOOSTRIX VACCINE (TETANUS/DIPHTH/ACEL. PERTUSSIS) 0.5ML SYR IM ONE (18:46)
[2024-02-04 20:00] VITALS: BP 123/72; TEMP 97.7; O2SAT 96
[2024-02-05 00:10] VITALS: BP 100/54; TEMP 97.5; O2SAT 96
[2024-02-05 08:00] VITALS: BP 115/68; TEMP 97.6; O2SAT 98
[2024-02-05] MEDS: ENOXAPARIN 40MG/0.4ML SYRINGE (J1650 PER 10MG) SC SCH (09:20)
[2024-02-05 09:35] LABS: BASO # 0.1 10^3/uL (0.0-0.2); BASO % 0.9 % (0.0-1.0); EOS # 0.2 10^3/uL (0.0-0.5); EOS % 1.7 % (0.0-3.0); HEMATOCRIT 36.6 % (42.0-52.0); HEMOGLOBIN 12.5 g/dl (13.5-17.5); LYMPH # 2.5 10^3/uL (1.5-5.0); LYMPH % 21.4 % (24.0-44.0); MEAN CORPUSCULAR HEMOGLOBIN 32.1 pg (27.0-33.0); MEAN CORPUSCULAR HGB CONC 34.2 g/dl (32.0-36.5); MEAN CORPUSCULAR VOLUME 93.8 fl (80.0-96.0); MONO % 8.2 % (2.0-8.0); NEUTROPHILS # 7.9 10^3/uL (1.5-8.5); NEUTROPHILS % 67.5 % (36.0-66.0); PLATELET COUNT, AUTOMATED 573 10^3/uL (150-450); WHITE BLOOD COUNT 11.7 10^3/uL (4.0-10.0)
[2024-02-05 10:10] LABS: BLOOD UREA NITROGEN 20 MG/DL (9-23); CARBON DIOXIDE LEVEL 24 MMOL/L (20-31); CHLORIDE LEVEL 108 MMOL/L (98-107); CREATININE FOR GFR 0.78 MG/DL (0.70-1.30); GLOMERULAR FILTRATION RATE > 60.0 (>60); GLUCOSE, FASTING 135 MG/DL (60-100); MAGNESIUM LEVEL 2.1 MG/DL (1.8-2.4); POTASSIUM SERUM 4.2 MMOL/L (3.5-5.1); SODIUM LEVEL 137 MMOL/L (136-145)
[2024-02-05] MEDS ORDERED: EQL1CAP9 PO (11:20)
[2024-02-05] MEDS ORDERED: DOXY-440 PO (11:20)
[2024-02-05 12:00] VITALS: BP 120/70; TEMP 97.7; O2SAT 98
== END 2024-02-05 15:55 | disposition home or self-care (01) | DRG 351 ==
LOC: M ED 15:01 → M ED INP 22:48 → M MS5PR 02-03 01:07
PROVIDERS: ADMIT Internal Medicine; ATTEND Internal Medicine
DX: M70.51 Other bursitis of knee, right knee (principal); E87.1 Hypo-osmolality and hyponatremia; D69.6 Thrombocytopenia, unspecified; F25.9 Schizoaffective disorder, unspecified; F32.A Depression, unspecified; F17.210 Nicotine dependence, cigarettes, uncomplicated; F31.9 Bipolar disorder, unspecified; F90.9 Attention-deficit hyperactivity disorder, unspecified type; F63.81 Intermittent explosive disorder; Z91.51 Personal history of suicidal behavior

== ENCOUNTER 2024-02-05 14:50 | Outpatient (CLI) | payer MEDICAID ==
[~2024-02-05 14:50] MED LIST changes: +DOXY-440 PO; +EQL1CAP9 PO
[2024-02-05] MEDS: DALBAVANCIN 1,500 MG in D5W 250 ML IV ONE (14:51)
== END 2024-02-05 15:53 ==
LOC: M OPCLI5PR 14:50 → M MS5PR 14:50 → M OPCLI5PR 15:53
PROVIDERS: ATTEND Internal Medicine Infectious Disease
DX: L03.115 Cellulitis of right lower limb (principal)
CPT/HCPCS: 96365; J0875

== ENCOUNTER 2024-03-27 23:23 | Emergency (ER) | payer MEDICAID, MEDICARE, OTHER, SELFPAY ==
[~2024-03-27] VITALS: Ht 185.4 cm; Wt 83.5 kg
[~2024-03-27 23:23] MED LIST changes: -CYCL5TAB PO; +CYCL5TAB4 PO
[2024-03-27 23:34] VITALS: TEMP 96.9
[2024-03-28] MEDS ORDERED: FAMOTIDINE 20MG/2ML VIAL IVP ONE (01:15)
[2024-03-28] MEDS ORDERED: ONDANSETRON 4MG 2ML VIAL IV ONE (01:15)
[2024-03-28] MEDS: ONDANSETRON 4MG ORAL DISINTEGRATING TAB PO ONE (02:35)
[2024-03-28] MEDS: FAMOTIDINE 20 MG TAB PO ONE (02:35)
[2024-03-28 02:41] VITALS: BP 127/72; O2SAT 99
[2024-03-28 03:08] LABS: BASO # 0.1 10^3/uL (0.0-0.2); BASO % 0.8 % (0.0-1.0); EOS % 0.1 % (0.0-3.0); HEMATOCRIT 40.5 % (42.0-52.0); HEMOGLOBIN 13.8 g/dl (13.5-17.5); LYMPH % 14.5 % (24.0-44.0); MEAN CORPUSCULAR HEMOGLOBIN 32.5 pg (27.0-33.0); MEAN CORPUSCULAR HGB CONC 34.1 g/dl (32.0-36.5); MEAN CORPUSCULAR VOLUME 95.3 fl (80.0-96.0); MONO # 0.9 10^3/uL (0.0-0.8); MONO % 6.2 % (2.0-8.0); NEUTROPHILS # 10.7 10^3/uL (1.5-8.5); PLATELET COUNT, AUTOMATED 619 10^3/uL (150-450); RED BLOOD COUNT 4.25 10^6/uL (4.30-6.10); WHITE BLOOD COUNT 13.8 10^3/uL (4.0-10.0)
[2024-03-28 03:33] LABS: LIPASE 71 U/L (12-53)
[2024-03-28 03:38] LABS: ALBUMIN 4.4 G/DL (3.2-5.2); ALKALINE PHOSPHATASE 99 U/L (40-129); ALT/SGPT 15 U/L (7.0-40); AST/SGOT 25 U/L (<34); BILIRUBIN,DIRECT 0.3 MG/DL (<0.4); BILIRUBIN,TOTAL 0.9 MG/DL (0.3-1.2); BLOOD UREA NITROGEN 25 MG/DL (9-23); CALCIUM LEVEL 10.5 MG/DL (8.5-10.1); CARBON DIOXIDE LEVEL 24 MMOL/L (20-31); CHLORIDE LEVEL 108 MMOL/L (98-107); CREATININE FOR GFR 0.78 MG/DL (0.70-1.30); GLOMERULAR FILTRATION RATE > 60.0 (>60); GLUCOSE, FASTING 63 MG/DL (60-100); POTASSIUM SERUM 4.5 MMOL/L (3.5-5.1); SODIUM LEVEL 140 MMOL/L (136-145); TOTAL PROTEIN 8.2 G/DL (5.7-8.2)
[2024-03-28] MEDS ORDERED: PEPC1TAB5 PO (03:55)
== END 2024-03-28 04:05 | disposition home or self-care (01) ==
LOC: M ED 23:23
DX: K29.00 Acute gastritis without bleeding (principal); K59.00 Constipation, unspecified; J45.909 Unspecified asthma, uncomplicated; F25.9 Schizoaffective disorder, unspecified; F17.210 Nicotine dependence, cigarettes, uncomplicated; Z79.2 Long term (current) use of antibiotics

== ENCOUNTER 2024-04-09 06:29 | Emergency (ER) | payer OTHER ==
[~2024-04-09] VITALS: Ht 185.4 cm; Wt 86.8 kg
[~2024-04-09 06:29] MED LIST changes: +PEPC1TAB5 PO
[2024-04-09 11:49] VITALS: BP 135/78; TEMP 97.6; O2SAT 98
== END 2024-04-09 12:01 | disposition home or self-care (01) ==
LOC: M ED 06:29
DX: T69.022A Immersion foot, left foot, initial encounter (principal); Z79.2 Long term (current) use of antibiotics; Z79.899 Other long term (current) drug therapy

== ENCOUNTER 2024-06-02 18:01 | Emergency (ER) | payer OTHER ==
[~2024-06-02] VITALS: Ht 185.4 cm; Wt 85.2 kg
[2024-06-02 18:08] VITALS: BP 141/81; TEMP 96.6; O2SAT 100
== END 2024-06-02 21:18 | disposition left against medical advice (07) ==
LOC: M ED 18:01 → EDBD 18:01 → M ED 21:18
DX: Z53.21 Procedure and treatment not carried out due to patient leaving prior to being seen by health care provider (principal)

== ENCOUNTER 2024-06-11 03:51 | Emergency (ER) | payer OTHER ==
[~2024-06-11] VITALS: Ht 185.4 cm; Wt 85.5 kg
[2024-06-11 08:43] VITALS: BP 135/78; TEMP 97.3; O2SAT 98
== END 2024-06-11 09:17 | disposition home or self-care (01) ==
LOC: M ED 03:51
DX: Z76.5 Malingerer [conscious simulation] (principal); Z59.00 Homelessness unspecified

== ENCOUNTER 2024-06-30 00:16 | Emergency (ER) | payer OTHER ==
[~2024-06-30] VITALS: Ht 185.4 cm; Wt 89.4 kg
[2024-06-30 01:48] VITALS: BP 122/74; TEMP 97.7; O2SAT 98
[2024-06-30] MEDS: ACETAMINOPHEN 500 MG TAB PO ONE (02:09)
== END 2024-06-30 02:33 | disposition home or self-care (01) ==
LOC: M ED 00:16
DX: M25.572 Pain in left ankle and joints of left foot (principal); M19.90 Unspecified osteoarthritis, unspecified site

== ENCOUNTER 2024-09-01 03:20 | Emergency (ER) | payer OTHER ==
[~2024-09-01] VITALS: Ht 185.4 cm; Wt 91.3 kg
[2024-09-01] MEDS ORDERED: HOME MED LIST COMPLETE! XX SCH (09:35)
[2024-09-01 10:25] LABS: BASO # 0.1 10^3/uL (0.0-0.2); BASO % 0.8 % (0.0-1.0); EOS # 0.4 10^3/uL (0.0-0.5); EOS % 4.2 % (0.0-3.0); HEMATOCRIT 38.5 % (42.0-52.0); HEMOGLOBIN 13.4 g/dl (13.5-17.5); LYMPH # 2.1 10^3/uL (1.5-5.0); LYMPH % 23.5 % (24.0-44.0); MEAN CORPUSCULAR HEMOGLOBIN 32.9 pg (27.0-33.0); MEAN CORPUSCULAR HGB CONC 34.8 g/dl (32.0-36.5); MEAN CORPUSCULAR VOLUME 94.6 fl (80.0-96.0); MONO # 1.1 10^3/uL (0.0-0.8); MONO % 11.8 % (2.0-8.0); NEUTROPHILS # 5.3 10^3/uL (1.5-8.5); NEUTROPHILS % 59.5 % (36.0-66.0); PLATELET COUNT, AUTOMATED 535 10^3/uL (150-450); RED BLOOD COUNT 4.07 10^6/uL (4.30-6.10)
[2024-09-01 10:48] LABS: ALBUMIN 3.7 G/DL (3.2-5.2); ALKALINE PHOSPHATASE 139 U/L (40-129); ALT/SGPT 18 U/L (7.0-40); AST/SGOT 28 U/L (<34); BILIRUBIN,TOTAL 0.4 MG/DL (0.3-1.2); BLOOD UREA NITROGEN 26 MG/DL (9-23); CALCIUM LEVEL 9.4 MG/DL (8.5-10.1); CARBON DIOXIDE LEVEL 23 MMOL/L (20-31); CHLORIDE LEVEL 107 MMOL/L (98-107); CREATININE FOR GFR 0.71 MG/DL (0.70-1.30); GLOMERULAR FILTRATION RATE > 90.0 (>60); GLUCOSE, FASTING 99 MG/DL (60-100); POTASSIUM SERUM 4.9 MMOL/L (3.5-5.1); SODIUM LEVEL 139 MMOL/L (136-145); THYROID STIMULATING HORMONE 0.492 uIU/ML (0.55-4.78)
[2024-09-01 10:49] LABS: FREE T4 1.35 NG/DL (0.89-1.76)
[2024-09-01 11:36] VITALS: BP 154/73; TEMP 96.9; O2SAT 100
== END 2024-09-01 11:46 | disposition home or self-care (01) ==
LOC: M ED 03:20
DX: R53.83 Other fatigue (principal)

== ENCOUNTER 2025-03-04 11:48 | Emergency (ER) | payer OTHER ==
[~2025-03-04] VITALS: Ht 185.4 cm; Wt 78.9 kg
[~2025-03-04 11:48] MED LIST changes: -ACE65ERTAB PO; +ACET-1593 PO; -IBUP-1022 PO; +IBUP600T42 PO
[2025-03-04 11:51] VITALS: BP 121/75; TEMP 98; O2SAT 97
[2025-03-04] MEDS ORDERED: IBUP600T42 PO (12:45)
[2025-03-04] MEDS ORDERED: VALA1TAB5 PO (12:45)
[2025-03-04] MEDS ORDERED: DOXY-441 PO (12:45)
== END 2025-03-04 12:51 | disposition home or self-care (01) ==
LOC: M ED 11:48
DX: B00.89 Other herpesviral infection (principal); F17.210 Nicotine dependence, cigarettes, uncomplicated; Z87.820 Personal history of traumatic brain injury; Z79.1 Long term (current) use of non-steroidal anti-inflammatories (NSAID); Z79.2 Long term (current) use of antibiotics